=== PATIENT | female | born 1950 | race Caucasian/White ===

== ENCOUNTER 2018-06-03 14:33 | Emergency (ER) | payer MEDICARE, SELFPAY ==
[2018-06-03] VITALS (8 sets, daily range): BP systolic 156–192; BP diastolic 80–93; PULSE 58–72; RESP 12–18; TEMP 37.1; O2SAT 100; BMI 29.0
--- NOTE | 2018-06-03 16:06 | ED.NAVMDI ---
HPI - Nausea/Vomiting/Diarrhea <Izzy Albarado, SET OFF PRESS OPERATOR-BC - Last Filed: 06/03/18 23:05> General Chief complaint: Nausea/Vomiting/Diarrhea Stated complaint: heat exhaustion, throwing up, headache, diarrhea Time Seen by Provider: 06/03/18 16:12 Source: patient and family Mode of arrival: ambulatory Limitations: no limitations History of Present Illness HPI Narrative: Patient presents with chief complaint of ?feeling sick since Thursday due to the heat.? She presents from [facility] urgent care. She states she had sudden onset of fatigue nausea vomiting chills and fevers feeling. She states she has not been able to keep anything down for days. She complains of diarrhea on Thursday. However she has not had any diarrhea since Thursday. She denies any chest pain, shortness of breath, cough, sore throat, ear pain or abdominal pain. She states that this happened several years ago when she was admitted for heat exhaustion. She denies urinary symptoms and denies dysuria urgency or frequency. [facility] urgent care gave her 25 IM Phenergan. I called [facility] verify this as the patient was not aware of what she received. She also complains of headache in the front and back of her head. Related Data Home Medications Medication Instructions Recorded Confirmed gabapentin [Neurontin] 3 cap PO HS #0 09/05/16 06/03/18 chlorhexidine gluconate [Hibiclens] 1 applic TOPICAL SEEINSTR 06/03/18 06/03/18 diclofenac sodium 1 tab PO BID 06/03/18 06/03/18 gabapentin 300 mg PO BID 06/03/18 06/03/18 mupirocin 1 applic TOPICAL SEEINSTR 06/03/18 06/03/18 paroxetine HCl 20 mg PO DAILY 06/03/18 06/03/18 trazodone 50 mg PO DAILY 06/03/18 06/03/18 Previous Rx's Medication Instructions Recorded nitrofurantoin monohyd/m-cryst 100 mg PO BID #14 cap 06/03/18 [Macrobid] ondansetron 4 mg PO Q6-8H PRN 5 Days tab 06/03/18 Allergies Allergy/AdvReac Type Severity Reaction Status Date / Time Sulfa (Sulfonamide Allergy Severe CHILDHOOD Verified 06/03/18 14:56 Antibiotics) RX- [SULFA (SULFONAMIDE swelling ANTIBIOTICS)] Review of Systems <Izzy AlbaradoURVASHI- - Last Filed: 06/03/18 23:05> Review of Systems GENERAL: See HPI HEENT: Denies sinus pain, ear pain, sore throat, difficulty swallowing, dizziness. RESPIRATORY: Denies dyspnea, cough, wheezing, hemoptysis, sputum. CARDIOVASCULAR: Denies chest pain, palpitations, orthopnea, edema, GASTROINTESTINAL: See HPI : See HPI MUSCULOSKELETAL: See HPI SKIN: Denies rash, skin lesions, or other NEUROLOGIC: Denies weakness, headache, numbness, change in speech, confusion, seizures, incoordination. PSYCHIATRIC: No concerning psychosocial issues. 12 point review of systems is negative except for those stated above Exam <Izzy AlbaradoLILLIEP- - Last Filed: 06/03/18 23:05> Narrative Exam Narrative: GENERAL: Fatigued-appearing elderly female lying on stretcher. HEAD: Atraumatic. Normocephalic. No temporal or scalp tenderness. EYES: Pupils equal round and reactive. Extraocular motions intact. No scleral icterus. No injection or drainage. ENT: Nose without bleeding, purulent drainage or septal hematoma. Throat without erythema, tonsillar hypertrophy or exudate. Uvula midline. Airway patent. NECK: Trachea midline. No JVD or lymphadenopathy. Supple, nontender, no meningeal signs. CARDIOVASCULAR: Regular rate and rhythm., RESPIRATORY: Clear to auscultation. Breath sounds equal bilaterally. No wheezes, rales, or rhonchi. GASTROINTESTINAL: Abdomen soft, non-tender, nondistended. No hepato-splenomegaly, or palpable masses. No guarding. Nonrigid abdomen. Active bowel sounds all 4 quadrants. No pulsatile mass palpated. EXTREMITIES: No clubbing, cyanosis, or edema. No joint tenderness, effusion, or edema noted. BACK: Nontender without deformity or crepitance. No flank tenderness. No CVA tenderness bilaterally. NEURO: AOx3. SKIN: No rash or erythema. Initial Vital Signs Initial Vital Signs: Vital Signs Temperature 98.8 F 06/03/18 14:50 Pulse Rate 68 06/03/18 14:50 Respiratory Rate 18 06/03/18 14:50 Blood Pressure 156/87 H 06/03/18 14:50 Pulse Oximetry 100 06/03/18 14:50 <Vel Rahman DO - Last Filed: 06/04/18 07:25> Initial Vital Signs Initial Vital Signs: Vital Signs Temperature 98.8 F 06/03/18 14:50 Pulse Rate 68 06/03/18 14:50 Respiratory Rate 18 06/03/18 14:50 Blood Pressure 156/87 H 06/03/18 14:50 Pulse Oximetry 100 06/03/18 14:50 Course <LILLIE CartyP-BC - Last Filed: 06/03/18 23:05> Additional Information: The patient presented to the emergency department from an urgent care center. She received an EKG, IV and IV fluid. She received 2 L of normal saline, as well as Zofran for her nausea. She also received Toradol for pain. She was treated for her urinary tract infection with her 1st dose of Macrobid in the emergency department. She felt much better after 2 L of saline. I recheck her electrolytes, her potassium was noted to be 3.2 so I gave her 40 mEq KCL p.o. I checked on her several times throughout her stay. Orders Ordered: Discontinued Medications Sodium Chloride (Normal Saline 0.9%) 1,000 mls @ 1,000 mls/hr IV BOLUS ONE Stop: 06/03/18 15:58 Last Infusion: 06/03/18 18:18 Dose: 0 mls/hr Admin: 06/03/18 16:37 Dose: 1,000 mls/hr Sodium Chloride (Normal Saline 0.9%) 1,000 mls @ 1,000 mls/hr IV BOLUS ONE Stop: 06/03/18 17:21 Last Infusion: 06/03/18 19:37 Dose: 0 mls/hr Admin: 06/03/18 18:28 Dose: 1,000 mls/hr Sodium Chloride (Normal Saline 0.9%) 500 mls @ 1,000 mls/hr IV BOLUS ONE Stop: 06/03/18 17:33 Last Admin: 06/03/18 17:22 Dose: Ketorolac Tromethamine (Toradol) 15 mg IV NOW ONE Stop: 06/03/18 18:09 Last Admin: 06/03/18 18:28 Dose: 15 mg Nitrofurantoin Macrocrystals (Macrobid 100 Mg Capsule) 100 mg PO NOW ONE Stop: 06/03/18 19:26 Last Admin: 06/03/18 19:41 Dose: 100 mg Ondansetron HCl (Zofran) 4 mg IV NOW ONE Stop: 06/03/18 16:23 Last Admin: 06/03/18 16:38 Dose: 4 mg Ondansetron HCl (Zofran) 4 mg IV NOW ONE Stop: 06/03/18 17:41 Last Admin: 06/03/18 18:27 Dose: Not Given Potassium Chloride (Klor-Con M20) 40 meq PO NOW ONE Stop: 06/03/18 20:08 Last Admin: 06/03/18 20:26 Dose: 40 meq Vital Signs - 8 hr 06/03/18 16:50 06/03/18 17:30 06/03/18 18:06 Pulse Rate 58 L 65 61 Respiratory Rate 15 14 17 Blood Pressure [Left Arm] 192/80 H 181/90 H 182/85 H Pulse Oximetry 100 100 100 06/03/18 18:24 06/03/18 19:30 06/03/18 20:00 Pulse Rate 72 65 67 Respiratory Rate 12 16 15 Blood Pressure [Left Arm] 182/85 H 181/93 H 181/93 H Pulse Oximetry 100 100 100 06/03/18 20:32 Pulse Rate 62 Respiratory Rate 13 Blood Pressure [Left Arm] 174/90 H Pulse Oximetry 100 <Vel Rahman DO - Last Filed: 06/04/18 07:25> Orders Ordered: Discontinued Medications Sodium Chloride (Normal Saline 0.9%) 1,000 mls @ 1,000 mls/hr IV BOLUS ONE Stop: 06/03/18 15:58 Last Infusion: 06/03/18 18:18 Dose: 0 mls/hr Admin: 06/03/18 16:37 Dose: 1,000 mls/hr Sodium Chloride (Normal Saline 0.9%) 1,000 mls @ 1,000 mls/hr IV BOLUS ONE Stop: 06/03/18 17:21 Last Infusion: 06/03/18 19:37 Dose: 0 mls/hr Admin: 06/03/18 18:28 Dose: 1,000 mls/hr Sodium Chloride (Normal Saline 0.9%) 500 mls @ 1,000 mls/hr IV BOLUS ONE Stop: 06/03/18 17:33 Last Admin: 06/03/18 17:22 Dose: Ketorolac Tromethamine (Toradol) 15 mg IV NOW ONE Stop: 06/03/18 18:09 Last Admin: 06/03/18 18:28 Dose: 15 mg Nitrofurantoin Macrocrystals (Macrobid 100 Mg Capsule) 100 mg PO NOW ONE Stop: 06/03/18 19:26 Last Admin: 06/03/18 19:41 Dose: 100 mg Ondansetron HCl (Zofran) 4 mg IV NOW ONE Stop: 06/03/18 16:23 Last Admin: 06/03/18 16:38 Dose: 4 mg Ondansetron HCl (Zofran) 4 mg IV NOW ONE Stop: 06/03/18 17:41 Last Admin: 06/03/18 18:27 Dose: Not Given Potassium Chloride (Klor-Con M20) 40 meq PO NOW ONE Stop: 06/03/18 20:08 Last Admin: 06/03/18 20:26 Dose: 40 meq Vital Signs - 8 hr 06/03/18 16:50 06/03/18 17:30 06/03/18 18:06 Pulse Rate 58 L 65 61 Respiratory Rate 15 14 17 Blood Pressure [Left Arm] 192/80 H 181/90 H 182/85 H Pulse Oximetry 100 100 100 06/03/18 18:24 06/03/18 19:30 06/03/18 20:00 Pulse Rate 72 65 67 Respiratory Rate 12 16 15 Blood Pressure [Left Arm] 182/85 H 181/93 H 181/93 H Pulse Oximetry 100 100 100 06/03/18 20:32 Pulse Rate 62 Respiratory Rate 13 Blood Pressure [Left Arm] 174/90 H Pulse Oximetry 100 MDM - Nausea/Vomiting/Diarrhea <URVASHI Carty- - Last Filed: 06/03/18 23:05> Lab Data Attestation: I reviewed the patient's lab results. Result diagrams: 06/03/18 16:23 06/03/18 19:28 Lab Results 06/03/18 06/03/18 06/03/18 Range/Units 13:35 16:23 16:23 WBC 10.6 (4.5-11.0) X10^3/uL RBC 4.77 (4.0-5.2) X10^6/uL Hgb 15.8 (12.0-16.0) g/dL Hct 45.8 (36-46) % MCV 95.8 (80-100) fL MCH 33.0 (26-34) PG MCHC 34.5 (30-36) % RDW 13.7 (11.6-14.8) % Plt Count 230 (150-400) X10^3/uL Neut % (Auto) 81.0 H (50-75) % Lymph % (Auto) 12.1 L (25-40) % [place] % (Auto) 6.6 (3-14) % Eos % (Auto) 0.0 L (2-4) % Baso % (Auto) 0.3 (0-2) % Neut # (Auto) 8600 H (4033-9160) /uL Sodium 134 L (137-145) mmol/L Potassium 3.4 (3.4-5.1) mmol/L Chloride 95 L (98-107) mmol/L Carbon Dioxide 27 (22-32) mmol/L BUN 22 H (7-17) mg/dL Creatinine 0.60 (0.52-1.04) mg/dL Estimated GFR > 60.0 (>60) mL/min BUN/Creatinine Ratio 36.7 H (6-22) Glucose 107 (80-110) mg/dL Calcium 10.3 H (8.4-10.2) mg/dL Total Bilirubin 1.3 (0.2-1.3) mg/dL AST 53 H (14-36) IU/L ALT 32 (9-52) IU/L Alkaline Phosphatase 72 (38-126) U/L Troponin I 0.018 (0.01-0.034) ng/mL Total Protein 8.2 (6.3-8.2) g/dL Albumin 5.2 H (3.5-5.0) g/dL Globulin 3.0 (1.7-4.1) g/dL Albumin/Globulin Ratio 1.7 (1.0-2.8) Lipase 52 (23-300) U/L Urine RBC 1-5/hpf (0-5/HPF) Urine WBC 5-10/hpf H (0-5/HPF) Ur Squamous Epith Cells 1-5 /hpf Amorphous Sediment 1+ Urine Bacteria Moderate (10-30) H (None) Urine Mucus 1+ H (Negative) Ur Culture Indicated? Specimen cultured Micro UA Comment Not Reportable 06/03/18 Range/Units 19:28 WBC (4.5-11.0) X10^3/uL RBC (4.0-5.2) X10^6/uL Hgb (12.0-16.0) g/dL Hct (36-46) % MCV (80-100) fL MCH (26-34) PG MCHC (30-36) % RDW (11.6-14.8) % Plt Count (150-400) X10^3/uL Neut % (Auto) (50-75) % Lymph % (Auto) (25-40) % [place] % (Auto) (3-14) % Eos % (Auto) (2-4) % Baso % (Auto) (0-2) % Neut # (Auto) (9418-1214) /uL Sodium 134 L (137-145) mmol/L Potassium 3.2 L (3.4-5.1) mmol/L Chloride 98 (98-107) mmol/L Carbon Dioxide 25 (22-32) mmol/L BUN 19 H (7-17) mg/dL Creatinine 0.60 (0.52-1.04) mg/dL Estimated GFR > 60.0 (>60) mL/min BUN/Creatinine Ratio 31.7 H (6-22) Glucose 126 H (80-110) mg/dL Calcium 9.2 (8.4-10.2) mg/dL Total Bilirubin 1.1 (0.2-1.3) mg/dL AST 47 H (14-36) IU/L ALT 38 (9-52) IU/L Alkaline Phosphatase 61 (38-126) U/L Troponin I (0.01-0.034) ng/mL Total Protein 7.4 (6.3-8.2) g/dL Albumin 4.6 (3.5-5.0) g/dL Globulin 2.8 (1.7-4.1) g/dL Albumin/Globulin Ratio 1.6 (1.0-2.8) Lipase (23-300) U/L Urine RBC (0-5/HPF) Urine WBC (0-5/HPF) Ur Squamous Epith Cells Amorphous Sediment Urine Bacteria (None) Urine Mucus (Negative) Ur Culture Indicated? Micro UA Comment Imaging Data CT scan - head: Radiologist's impression: [address] [address] [address] Scan Report Signed Patient: Nikolas Castillo MR#: [id number] : 1950 Acct:[id number] Age/Sex: 68 / F Date of Service: 06/03/18 Loc: ED Accession Number: [id number] Procedure: CT head/brain wo con Ordering Provider: Izzy Albarado- PROCEDURE: CT HEAD/BRAIN WO CON INDICATIONS: severe headache, weakness TECHNIQUE: Noncontrast 4.5 mm thick angled axial sections acquired from the foramen magnum to the vertex, with coronal and sagittal reformats. For radiation dose reduction, the following was used: automated exposure control, adjustment of mA and/or kV according to patient size. COMPARISON: None. FINDINGS: Image quality: Excellent. CSF spaces: Basal cisterns are patent. No extra-axial fluid collections. The ventricles are symmetric in size and shape. Brain: No intracranial bleeds or masses. There is cerebral volume loss for age, with resultant ventricular and sulcal prominence. There are periventricular and deep white matter chronic small vessel ischemic changes. There is intracranial internal carotid artery atherosclerosis. Skull and face: Calvarium and visualized facial bones appear intact, without suspicious lesions. Sinuses: Visualized sinuses and mastoids are clear. IMPRESSION: 1. No acute intracranial process. 2. Mild atrophy and chronic microvascular ischemic changes. Dictated by: Anne Yoder M.D. on 06/03/2018 at 18:15 Approved by: Anne Yoder M.D. on 06/03/2018 at 18:17 [facility] Narrative Medical decision making narrative: The patient presented to the emergency department with chief complaint of weakness, nausea vomiting and diarrhea. She was treated with Zofran, IVF and Toradol for headache. She underwent a CT scan given her headache and weakness. The patient improved greatly after receiving IV after felt as though she was ready to go home. The patient underwent a thorough examination the emergency department. The patient did have moderate bacteria on her UA, however did not have CVA tenderness or urinary symptoms. I placed her on Macrobid and a urine culture is being processed. Upon discharge the patient stated she felt much improved, denies dizziness or headache. She has passed a p.o. trial and felt as though she is ready to go. She had no questions or concerns upon discharge. <Vel Rahman, DO - Last Filed: 06/04/18 07:25> Lab Data Lab Results 06/03/18 06/03/18 06/03/18 Range/Units 13:35 16:23 16:23 WBC 10.6 (4.5-11.0) X10^3/uL RBC 4.77 (4.0-5.2) X10^6/uL Hgb 15.8 (12.0-16.0) g/dL Hct 45.8 (36-46) % MCV 95.8 (80-100) fL MCH 33.0 (26-34) PG MCHC 34.5 (30-36) % RDW 13.7 (11.6-14.8) % Plt Count 230 (150-400) X10^3/uL Neut % (Auto) 81.0 H (50-75) % Lymph % (Auto) 12.1 L (25-40) % [place] % (Auto) 6.6 (3-14) % Eos % (Auto) 0.0 L (2-4) % Baso % (Auto) 0.3 (0-2) % Neut # (Auto) 8600 H (3050-6333) /uL Sodium 134 L (137-145) mmol/L Potassium 3.4 (3.4-5.1) mmol/L Chloride 95 L (98-107) mmol/L Carbon Dioxide 27 (22-32) mmol/L BUN 22 H (7-17) mg/dL Creatinine 0.60 (0.52-1.04) mg/dL Estimated GFR > 60.0 (>60) mL/min BUN/Creatinine Ratio 36.7 H (6-22) Glucose 107 (80-110) mg/dL Calcium 10.3 H (8.4-10.2) mg/dL Total Bilirubin 1.3 (0.2-1.3) mg/dL AST 53 H (14-36) IU/L ALT 32 (9-52) IU/L Alkaline Phosphatase 72 (38-126) U/L Troponin I 0.018 (0.01-0.034) ng/mL Total Protein 8.2 (6.3-8.2) g/dL Albumin 5.2 H (3.5-5.0) g/dL Globulin 3.0 (1.7-4.1) g/dL Albumin/Globulin Ratio 1.7 (1.0-2.8) Lipase 52 (23-300) U/L Urine RBC 1-5/hpf (0-5/HPF) Urine WBC 5-10/hpf H (0-5/HPF) Ur Squamous Epith Cells 1-5 /hpf Amorphous Sediment 1+ Urine Bacteria Moderate (10-30) H (None) Urine Mucus 1+ H (Negative) Ur Culture Indicated? Specimen cultured Micro UA Comment Not Reportable 06/03/18 Range/Units 19:28 WBC (4.5-11.0) X10^3/uL RBC (4.0-5.2) X10^6/uL Hgb (12.0-16.0) g/dL Hct (36-46) % MCV (80-100) fL MCH (26-34) PG MCHC (30-36) % RDW (11.6-14.8) % Plt Count (150-400) X10^3/uL Neut % (Auto) (50-75) % Lymph % (Auto) (25-40) % [place] % (Auto) (3-14) % Eos % (Auto) (2-4) % Baso % (Auto) (0-2) % Neut # (Auto) (8097-7588) /uL Sodium 134 L (137-145) mmol/L Potassium 3.2 L (3.4-5.1) mmol/L Chloride 98 (98-107) mmol/L Carbon Dioxide 25 (22-32) mmol/L BUN 19 H (7-17) mg/dL Creatinine 0.60 (0.52-1.04) mg/dL Estimated GFR > 60.0 (>60) mL/min BUN/Creatinine Ratio 31.7 H (6-22) Glucose 126 H (80-110) mg/dL Calcium 9.2 (8.4-10.2) mg/dL Total Bilirubin 1.1 (0.2-1.3) mg/dL AST 47 H (14-36) IU/L ALT 38 (9-52) IU/L Alkaline Phosphatase 61 (38-126) U/L Troponin I (0.01-0.034) ng/mL Total Protein 7.4 (6.3-8.2) g/dL Albumin 4.6 (3.5-5.0) g/dL Globulin 2.8 (1.7-4.1) g/dL Albumin/Globulin Ratio 1.6 (1.0-2.8) Lipase (23-300) U/L Urine RBC (0-5/HPF) Urine WBC (0-5/HPF) Ur Squamous Epith Cells Amorphous Sediment Urine Bacteria (None) Urine Mucus (Negative) Ur Culture Indicated? Micro UA Comment Discharge Plan Departure Patient Disposition: Home, Self-Care Clinical Impression: Nausea & vomiting, Weakness, UTI (urinary tract infection) Discharge Date/Time: 06/03/18 21:00 Interventions: ED Discharge Assessment Last Done: 06/03/18 21:00 Instructions: DI for Dehydration -- Adult, DI for Urinary Tract Infection (UTI), DI for Nausea -- Adult Activity Restrictions/Additional Instructions: You appear to be feeling much better after the treatment you received in the emergency department. Your vital signs are stable. I am starting you on an antibiotic called Emilied for urinary tract infection. Your urine is being sent out for culture to make sure that this is a good choice. I would like you to follow up with her primary care provider if he feel worse or do not feel any better. Monitor for fevers or flank pain. I suggest following up with you PCP. Prescriptions: New ondansetron 4 mg tablet,disintegrating 4 mg PO Q6-8H PRN (Reason: nausea and vomiting) 5 Days RF: 0 nitrofurantoin monohyd/m-cryst [Macrobid] 100 mg capsule 100 mg PO BID Qty: 14 RF: 0 No Action gabapentin [Neurontin] 300 MG capsule 3 cap PO HS Qty: 0 RF: 0 trazodone 50 mg tablet 50 mg PO DAILY RF: 0 paroxetine HCl 20 mg tablet 20 mg PO DAILY RF: 0 gabapentin 300 mg capsule 300 mg PO BID RF: 0 diclofenac sodium 75 mg tablet,delayed release (DR/EC) 1 tab PO BID RF: 0 mupirocin 2 % ointment 1 applic Topical SEEINSTR RF: 0 chlorhexidine gluconate [Hibiclens] 4 % liquid 1 applic Topical SEEINSTR RF: 0 <Vel Rahman DO - Last Filed: 06/04/18 07:25> Cosign ED Attending Cosrainerature Attestation: I was available for consultation during this patient's emergency department encounter
[2018-06-03 16:11] LABS: Amorphous Sediment Urine 1+; Bacteria Urine Moderate (10-30); Culture Indicated Urine Specimen Cultured; Mucus Urine 1+ (Negative); RBC Urine 1-5/HPF (0-5/HPF); Squamous Epithelial Cell Urine 1-5 /HPF; WBC Urine 5-10/HPF (0-5/HPF)
[2018-06-03 16:32] LABS: Add Manual Diff / Slide Review NO; Basophils Percent Auto 0.3 % (0-2); Hematocrit 45.8 % (36-46); Hemoglobin 15.8 g/dL (12.0-16.0); Lymphocytes Percent Auto 12.1 % (25-40); Mean Corpuscular HGB Conc 34.5 % (30-36); Mean Corpuscular Volume 95.8 fL (80-100); Monocytes Percent Auto 6.6 % (3-14); Neutrophils Absolute Auto 8600 /uL (3000-5900); Platelet Count 230 X10^3/uL (150-400); Red Blood Cell Count 4.77 X10^6/uL (4.0-5.2); Red Cell Distribution Width 13.7 % (11.6-14.8); White Blood Cell Count 10.6 X10^3/uL (4.5-11.0)
[2018-06-03] MEDS: SODIUM CHLORIDE 0.9% 1,000 ML 1000 ML IV ×2 (16:37→18:28)
[2018-06-03] MEDS: ONDANSETRON 4 MG/2 ML INJ IV (16:38)
[2018-06-03 16:48] LABS: Alanine Aminotransferase 32 IU/L (9-52); Albumin 5.2 g/dL (3.5-5.0); Albumin Globulin Ratio 1.7 (1.0-2.8); Alkaline Phosphatase 72 U/L (38-126); Aspartate Aminotransferase 53 IU/L (14-36); BUN Creatinine Ratio 36.7 (6-22); Bilirubin Total 1.3 mg/dL (0.2-1.3); Blood Urea Nitrogen 22 mg/dL (7-17); Calcium 10.3 mg/dL (8.4-10.2); Carbon Dioxide 27 mmol/L (22-32); Chloride 95 mmol/L (98-107); Estimated Glomerular Filt Rate > 60.0 mL/min (>60); Glucose 107 mg/dL (80-110); HEMOLYSIS < 15 (0-50); Lipase 52 U/L (23-300); Potassium 3.4 mmol/L (3.4-5.1); Sodium 134 mmol/L (137-145); Total Protein 8.2 g/dL (6.3-8.2)
[2018-06-03 16:59] LABS: Troponin I 0.018 ng/mL (0.01-0.034)
--- NOTE | 2018-06-03 17:17 | DI.CT.S_ITS ---
PROCEDURE: CT HEAD/BRAIN WO CON INDICATIONS: severe headache, weakness TECHNIQUE: Noncontrast 4.5 mm thick angled axial sections acquired from the foramen magnum to the vertex, with coronal and sagittal reformats. For radiation dose reduction, the following was used: automated exposure control, adjustment of mA and/or kV according to patient size. COMPARISON: None. FINDINGS: Image quality: Excellent. CSF spaces: Basal cisterns are patent. No extra-axial fluid collections. The ventricles are symmetric in size and shape. Brain: No intracranial bleeds or masses. There is cerebral volume loss for age, with resultant ventricular and sulcal prominence. There are periventricular and deep white matter chronic small vessel ischemic changes. There is intracranial internal carotid artery atherosclerosis. Skull and face: Calvarium and visualized facial bones appear intact, without suspicious lesions. Sinuses: Visualized sinuses and mastoids are clear. IMPRESSION: 1. No acute intracranial process. 2. Mild atrophy and chronic microvascular ischemic changes. Dictated by: Anne Yoder M.D. on 06/03/2018 at 18:15 Approved by: Anne Yoder M.D. on 06/03/2018 at 18:17
[2018-06-03] MEDS: KETOROLAC 60 MG/2 ML VIAL 15 MG IV (18:28)
[2018-06-03] MEDS: NITROFURANTOIN ER 100 MG CAPSULE PO (19:41)
--- NOTE | 2018-06-03 19:44 | ED_ITS ---
HPI - Nausea/Vomiting/Diarrhea <Izzy Albarado, GAS PLANT DISPATCHER-BC - Last Filed: 06/03/18 23:05> General Chief complaint: Nausea/Vomiting/Diarrhea Stated complaint: heat exhaustion, throwing up, headache, diarrhea Time Seen by Provider: 06/03/18 16:12 Source: patient and family Mode of arrival: ambulatory Limitations: no limitations History of Present Illness HPI Narrative: Patient presents with chief complaint of ?feeling sick since Thursday due to the heat.? She presents from [facility] urgent care. She states she had sudden onset of fatigue nausea vomiting chills and fevers feeling. She states she has not been able to keep anything down for days. She complains of diarrhea on Thursday. However she has not had any diarrhea since Thursday. She denies any chest pain, shortness of breath, cough, sore throat, ear pain or abdominal pain. She states that this happened several years ago when she was admitted for heat exhaustion. She denies urinary symptoms and denies dysuria urgency or frequency. [facility] urgent care gave her 25 IM Phenergan. I called [facility] verify this as the patient was not aware of what she received. She also complains of headache in the front and back of her head. Related Data Home Medications Medication Instructions Recorded Confirmed gabapentin [Neurontin] 3 cap PO HS #0 09/05/16 06/03/18 chlorhexidine gluconate [Hibiclens] 1 applic TOPICAL SEEINSTR 06/03/18 06/03/18 diclofenac sodium 1 tab PO BID 06/03/18 06/03/18 gabapentin 300 mg PO BID 06/03/18 06/03/18 mupirocin 1 applic TOPICAL SEEINSTR 06/03/18 06/03/18 paroxetine HCl 20 mg PO DAILY 06/03/18 06/03/18 trazodone 50 mg PO DAILY 06/03/18 06/03/18 Previous Rx's Medication Instructions Recorded nitrofurantoin monohyd/m-cryst 100 mg PO BID #14 cap 06/03/18 [Macrobid] ondansetron 4 mg PO Q6-8H PRN 5 Days tab 06/03/18 Allergies Allergy/AdvReac Type Severity Reaction Status Date / Time Sulfa (Sulfonamide Allergy Severe CHILDHOOD Verified 06/03/18 14:56 Antibiotics) RX- [SULFA (SULFONAMIDE swelling ANTIBIOTICS)] Review of Systems <Izzy AlbaradoURVASHI- - Last Filed: 06/03/18 23:05> Review of Systems GENERAL: See HPI HEENT: Denies sinus pain, ear pain, sore throat, difficulty swallowing, dizziness. RESPIRATORY: Denies dyspnea, cough, wheezing, hemoptysis, sputum. CARDIOVASCULAR: Denies chest pain, palpitations, orthopnea, edema, GASTROINTESTINAL: See HPI : See HPI MUSCULOSKELETAL: See HPI SKIN: Denies rash, skin lesions, or other NEUROLOGIC: Denies weakness, headache, numbness, change in speech, confusion, seizures, incoordination. PSYCHIATRIC: No concerning psychosocial issues. 12 point review of systems is negative except for those stated above Exam <Izzy AlbaradoLILLIEP- - Last Filed: 06/03/18 23:05> Narrative Exam Narrative: GENERAL: Fatigued-appearing elderly female lying on stretcher. HEAD: Atraumatic. Normocephalic. No temporal or scalp tenderness. EYES: Pupils equal round and reactive. Extraocular motions intact. No scleral icterus. No injection or drainage. ENT: Nose without bleeding, purulent drainage or septal hematoma. Throat without erythema, tonsillar hypertrophy or exudate. Uvula midline. Airway patent. NECK: Trachea midline. No JVD or lymphadenopathy. Supple, nontender, no meningeal signs. CARDIOVASCULAR: Regular rate and rhythm., RESPIRATORY: Clear to auscultation. Breath sounds equal bilaterally. No wheezes , rales, or rhonchi. GASTROINTESTINAL: Abdomen soft, non-tender, nondistended. No hepato-splenomegaly , or palpable masses. No guarding. Nonrigid abdomen. Active bowel sounds all 4 quadrants. No pulsatile mass palpated. EXTREMITIES: No clubbing, cyanosis, or edema. No joint tenderness, effusion, or edema noted. BACK: Nontender without deformity or crepitance. No flank tenderness. No CVA tenderness bilaterally. NEURO: AOx3. SKIN: No rash or erythema. Initial Vital Signs Initial Vital Signs: Vital Signs Temperature 98.8 F 06/03/18 14:50 Pulse Rate 68 06/03/18 14:50 Respiratory Rate 18 06/03/18 14:50 Blood Pressure 156/87 H 06/03/18 14:50 Pulse Oximetry 100 06/03/18 14:50 <Vel Rahman DO - Last Filed: 06/04/18 07:25> Initial Vital Signs Initial Vital Signs: Vital Signs Temperature 98.8 F 06/03/18 14:50 Pulse Rate 68 06/03/18 14:50 Respiratory Rate 18 06/03/18 14:50 Blood Pressure 156/87 H 06/03/18 14:50 Pulse Oximetry 100 06/03/18 14:50 Course <LILLIE CartyP-BC - Last Filed: 06/03/18 23:05> Additional Information: The patient presented to the emergency department from an urgent care center. She received an EKG, IV and IV fluid. She received 2 L of normal saline, as well as Zofran for her nausea. She also received Toradol for pain. She was treated for her urinary tract infection with her 1st dose of Macrobid in the emergency department. She felt much better after 2 L of saline. I recheck her electrolytes, her potassium was noted to be 3.2 so I gave her 40 mEq KCL p.o. I checked on her several times throughout her stay. Orders Ordered: Discontinued Medications Sodium Chloride (Normal Saline 0.9%) 1,000 mls @ 1,000 mls/hr IV BOLUS ONE Stop: 06/03/18 15:58 Last Infusion: 06/03/18 18:18 Dose: 0 mls/hr Admin: 06/03/18 16:37 Dose: 1,000 mls/hr Sodium Chloride (Normal Saline 0.9%) 1,000 mls @ 1,000 mls/hr IV BOLUS ONE Stop: 06/03/18 17:21 Last Infusion: 06/03/18 19:37 Dose: 0 mls/hr Admin: 06/03/18 18:28 Dose: 1,000 mls/hr Sodium Chloride (Normal Saline 0.9%) 500 mls @ 1,000 mls/hr IV BOLUS ONE Stop: 06/03/18 17:33 Last Admin: 06/03/18 17:22 Dose: Ketorolac Tromethamine (Toradol) 15 mg IV NOW ONE Stop: 06/03/18 18:09 Last Admin: 06/03/18 18:28 Dose: 15 mg Nitrofurantoin Macrocrystals (Macrobid 100 Mg Capsule) 100 mg PO NOW ONE Stop: 06/03/18 19:26 Last Admin: 06/03/18 19:41 Dose: 100 mg Ondansetron HCl (Zofran) 4 mg IV NOW ONE Stop: 06/03/18 16:23 Last Admin: 06/03/18 16:38 Dose: 4 mg Ondansetron HCl (Zofran) 4 mg IV NOW ONE Stop: 06/03/18 17:41 Last Admin: 06/03/18 18:27 Dose: Not Given Potassium Chloride (Klor-Con M20) 40 meq PO NOW ONE Stop: 06/03/18 20:08 Last Admin: 06/03/18 20:26 Dose: 40 meq Vital Signs - 8 hr 06/03/18 16:50 06/03/18 17:30 06/03/18 18:06 Pulse Rate 58 L 65 61 Respiratory Rate 15 14 17 Blood Pressure [Left Arm] 192/80 H 181/90 H 182/85 H Pulse Oximetry 100 100 100 06/03/18 18:24 06/03/18 19:30 06/03/18 20:00 Pulse Rate 72 65 67 Respiratory Rate 12 16 15 Blood Pressure [Left Arm] 182/85 H 181/93 H 181/93 H Pulse Oximetry 100 100 100 06/03/18 20:32 Pulse Rate 62 Respiratory Rate 13 Blood Pressure [Left Arm] 174/90 H Pulse Oximetry 100 <Vel Rahman DO - Last Filed: 06/04/18 07:25> Orders Ordered: Discontinued Medications Sodium Chloride (Normal Saline 0.9%) 1,000 mls @ 1,000 mls/hr IV BOLUS ONE Stop: 06/03/18 15:58 Last Infusion: 06/03/18 18:18 Dose: 0 mls/hr Admin: 06/03/18 16:37 Dose: 1,000 mls/hr Sodium Chloride (Normal Saline 0.9%) 1,000 mls @ 1,000 mls/hr IV BOLUS ONE Stop: 06/03/18 17:21 Last Infusion: 06/03/18 19:37 Dose: 0 mls/hr Admin: 06/03/18 18:28 Dose: 1,000 mls/hr Sodium Chloride (Normal Saline 0.9%) 500 mls @ 1,000 mls/hr IV BOLUS ONE Stop: 06/03/18 17:33 Last Admin: 06/03/18 17:22 Dose: Ketorolac Tromethamine (Toradol) 15 mg IV NOW ONE Stop: 06/03/18 18:09 Last Admin: 06/03/18 18:28 Dose: 15 mg Nitrofurantoin Macrocrystals (Macrobid 100 Mg Capsule) 100 mg PO NOW ONE Stop: 06/03/18 19:26 Last Admin: 06/03/18 19:41 Dose: 100 mg Ondansetron HCl (Zofran) 4 mg IV NOW ONE Stop: 06/03/18 16:23 Last Admin: 06/03/18 16:38 Dose: 4 mg Ondansetron HCl (Zofran) 4 mg IV NOW ONE Stop: 06/03/18 17:41 Last Admin: 06/03/18 18:27 Dose: Not Given Potassium Chloride (Klor-Con M20) 40 meq PO NOW ONE Stop: 06/03/18 20:08 Last Admin: 06/03/18 20:26 Dose: 40 meq Vital Signs - 8 hr 06/03/18 16:50 06/03/18 17:30 06/03/18 18:06 Pulse Rate 58 L 65 61 Respiratory Rate 15 14 17 Blood Pressure [Left Arm] 192/80 H 181/90 H 182/85 H Pulse Oximetry 100 100 100 06/03/18 18:24 06/03/18 19:30 06/03/18 20:00 Pulse Rate 72 65 67 Respiratory Rate 12 16 15 Blood Pressure [Left Arm] 182/85 H 181/93 H 181/93 H Pulse Oximetry 100 100 100 06/03/18 20:32 Pulse Rate 62 Respiratory Rate 13 Blood Pressure [Left Arm] 174/90 H Pulse Oximetry 100 MDM - Nausea/Vomiting/Diarrhea <URVASHI Carty- - Last Filed: 06/03/18 23:05> Lab Data Attestation: I reviewed the patient's lab results. Result diagrams: 06/03/18 16:23 06/03/18 19:28 Lab Results 06/03/18 06/03/18 06/03/18 Range/Units 13:35 16:23 16:23 WBC 10.6 (4.5-11.0) X10^3/uL RBC 4.77 (4.0-5.2) X10^6/uL Hgb 15.8 (12.0-16.0) g/dL Hct 45.8 (36-46) % MCV 95.8 (80-100) fL MCH 33.0 (26-34) PG MCHC 34.5 (30-36) % RDW 13.7 (11.6-14.8) % Plt Count 230 (150-400) X10^3/uL Neut % (Auto) 81.0 H (50-75) % Lymph % (Auto) 12.1 L (25-40) % [place] % (Auto) 6.6 (3-14) % Eos % (Auto) 0.0 L (2-4) % Baso % (Auto) 0.3 (0-2) % Neut # (Auto) 8600 H (5352-3877) /uL Sodium 134 L (137-145) mmol/L Potassium 3.4 (3.4-5.1) mmol/L Chloride 95 L (98-107) mmol/L Carbon Dioxide 27 (22-32) mmol/L BUN 22 H (7-17) mg/dL Creatinine 0.60 (0.52-1.04) mg/dL Estimated GFR > 60.0 (>60) mL/min BUN/Creatinine Ratio 36.7 H (6-22) Glucose 107 (80-110) mg/dL Calcium 10.3 H (8.4-10.2) mg/dL Total Bilirubin 1.3 (0.2-1.3) mg/dL AST 53 H (14-36) IU/L ALT 32 (9-52) IU/L Alkaline Phosphatase 72 (38-126) U/L Troponin I 0.018 (0.01-0.034) ng/mL Total Protein 8.2 (6.3-8.2) g/dL Albumin 5.2 H (3.5-5.0) g/dL Globulin 3.0 (1.7-4.1) g/dL Albumin/Globulin Ratio 1.7 (1.0-2.8) Lipase 52 (23-300) U/L Urine RBC 1-5/hpf (0-5/HPF) Urine WBC 5-10/hpf H (0-5/HPF) Ur Squamous Epith Cells 1-5 /hpf Amorphous Sediment 1+ Urine Bacteria Moderate (10-30) H (None) Urine Mucus 1+ H (Negative) Ur Culture Indicated? Specimen cultured Micro UA Comment Not Reportable 06/03/18 Range/Units 19:28 WBC (4.5-11.0) X10^3/uL RBC (4.0-5.2) X10^6/uL Hgb (12.0-16.0) g/dL Hct (36-46) % MCV (80-100) fL MCH (26-34) PG MCHC (30-36) % RDW (11.6-14.8) % Plt Count (150-400) X10^3/uL Neut % (Auto) (50-75) % Lymph % (Auto) (25-40) % [place] % (Auto) (3-14) % Eos % (Auto) (2-4) % Baso % (Auto) (0-2) % Neut # (Auto) (4188-8643) /uL Sodium 134 L (137-145) mmol/L Potassium 3.2 L (3.4-5.1) mmol/L Chloride 98 (98-107) mmol/L Carbon Dioxide 25 (22-32) mmol/L BUN 19 H (7-17) mg/dL Creatinine 0.60 (0.52-1.04) mg/dL Estimated GFR > 60.0 (>60) mL/min BUN/Creatinine Ratio 31.7 H (6-22) Glucose 126 H (80-110) mg/dL Calcium 9.2 (8.4-10.2) mg/dL Total Bilirubin 1.1 (0.2-1.3) mg/dL AST 47 H (14-36) IU/L ALT 38 (9-52) IU/L Alkaline Phosphatase 61 (38-126) U/L Troponin I (0.01-0.034) ng/mL Total Protein 7.4 (6.3-8.2) g/dL Albumin 4.6 (3.5-5.0) g/dL Globulin 2.8 (1.7-4.1) g/dL Albumin/Globulin Ratio 1.6 (1.0-2.8) Lipase (23-300) U/L Urine RBC (0-5/HPF) Urine WBC (0-5/HPF) Ur Squamous Epith Cells Amorphous Sediment Urine Bacteria (None) Urine Mucus (Negative) Ur Culture Indicated? Micro UA Comment Imaging Data CT scan - head: Radiologist's impression: [address] [address] [address] Scan Report Signed Patient: Nikolas Castillo MR#: [id number] : 1950 Acct:[id number] Age/Sex: 68 / F Date of Service: 06/03/18 Loc: ED Accession Number: [id number] Procedure: CT head/brain wo con Ordering Provider: Izzy Albarado- PROCEDURE: CT HEAD/BRAIN WO CON INDICATIONS: severe headache, weakness TECHNIQUE: Noncontrast 4.5 mm thick angled axial sections acquired from the foramen magnum to the vertex, with coronal and sagittal reformats. For radiation dose reduction, the following was used: automated exposure control, adjustment of mA and/or kV according to patient size. COMPARISON: None. FINDINGS: Image quality: Excellent. CSF spaces: Basal cisterns are patent. No extra-axial fluid collections. The ventricles are symmetric in size and shape. Brain: No intracranial bleeds or masses. There is cerebral volume loss for age , with resultant ventricular and sulcal prominence. There are periventricular and deep white matter chronic small vessel ischemic changes. There is intracranial internal carotid artery atherosclerosis. Skull and face: Calvarium and visualized facial bones appear intact, without suspicious lesions. Sinuses: Visualized sinuses and mastoids are clear. IMPRESSION: 1. No acute intracranial process. 2. Mild atrophy and chronic microvascular ischemic changes. Dictated by: Anne Yoder M.D. on 06/03/2018 at 18:15 Approved by: Anne Yoder M.D. on 06/03/2018 at 18:17 [facility] Narrative Medical decision making narrative: The patient presented to the emergency department with chief complaint of weakness, nausea vomiting and diarrhea. She was treated with Zofran, IVF and Toradol for headache. She underwent a CT scan given her headache and weakness. The patient improved greatly after receiving IV after felt as though she was ready to go home. The patient underwent a thorough examination the emergency department. The patient did have moderate bacteria on her UA, however did not have CVA tenderness or urinary symptoms. I placed her on Macrobid and a urine culture is being processed. Upon discharge the patient stated she felt much improved, denies dizziness or headache. She has passed a p.o. trial and felt as though she is ready to go. She had no questions or concerns upon discharge. <Vel Rahman, DO - Last Filed: 06/04/18 07:25> Lab Data Lab Results 06/03/18 06/03/18 06/03/18 Range/Units 13:35 16:23 16:23 WBC 10.6 (4.5-11.0) X10^3/uL RBC 4.77 (4.0-5.2) X10^6/uL Hgb 15.8 (12.0-16.0) g/dL Hct 45.8 (36-46) % MCV 95.8 (80-100) fL MCH 33.0 (26-34) PG MCHC 34.5 (30-36) % RDW 13.7 (11.6-14.8) % Plt Count 230 (150-400) X10^3/uL Neut % (Auto) 81.0 H (50-75) % Lymph % (Auto) 12.1 L (25-40) % [place] % (Auto) 6.6 (3-14) % Eos % (Auto) 0.0 L (2-4) % Baso % (Auto) 0.3 (0-2) % Neut # (Auto) 8600 H (2893-5963) /uL Sodium 134 L (137-145) mmol/L Potassium 3.4 (3.4-5.1) mmol/L Chloride 95 L (98-107) mmol/L Carbon Dioxide 27 (22-32) mmol/L BUN 22 H (7-17) mg/dL Creatinine 0.60 (0.52-1.04) mg/dL Estimated GFR > 60.0 (>60) mL/min BUN/Creatinine Ratio 36.7 H (6-22) Glucose 107 (80-110) mg/dL Calcium 10.3 H (8.4-10.2) mg/dL Total Bilirubin 1.3 (0.2-1.3) mg/dL AST 53 H (14-36) IU/L ALT 32 (9-52) IU/L Alkaline Phosphatase 72 (38-126) U/L Troponin I 0.018 (0.01-0.034) ng/mL Total Protein 8.2 (6.3-8.2) g/dL Albumin 5.2 H (3.5-5.0) g/dL Globulin 3.0 (1.7-4.1) g/dL Albumin/Globulin Ratio 1.7 (1.0-2.8) Lipase 52 (23-300) U/L Urine RBC 1-5/hpf (0-5/HPF) Urine WBC 5-10/hpf H (0-5/HPF) Ur Squamous Epith Cells 1-5 /hpf Amorphous Sediment 1+ Urine Bacteria Moderate (10-30) H (None) Urine Mucus 1+ H (Negative) Ur Culture Indicated? Specimen cultured Micro UA Comment Not Reportable 06/03/18 Range/Units 19:28 WBC (4.5-11.0) X10^3/uL RBC (4.0-5.2) X10^6/uL Hgb (12.0-16.0) g/dL Hct (36-46) % MCV (80-100) fL MCH (26-34) PG MCHC (30-36) % RDW (11.6-14.8) % Plt Count (150-400) X10^3/uL Neut % (Auto) (50-75) % Lymph % (Auto) (25-40) % [place] % (Auto) (3-14) % Eos % (Auto) (2-4) % Baso % (Auto) (0-2) % Neut # (Auto) (9657-4629) /uL Sodium 134 L (137-145) mmol/L Potassium 3.2 L (3.4-5.1) mmol/L Chloride 98 (98-107) mmol/L Carbon Dioxide 25 (22-32) mmol/L BUN 19 H (7-17) mg/dL Creatinine 0.60 (0.52-1.04) mg/dL Estimated GFR > 60.0 (>60) mL/min BUN/Creatinine Ratio 31.7 H (6-22) Glucose 126 H (80-110) mg/dL Calcium 9.2 (8.4-10.2) mg/dL Total Bilirubin 1.1 (0.2-1.3) mg/dL AST 47 H (14-36) IU/L ALT 38 (9-52) IU/L Alkaline Phosphatase 61 (38-126) U/L Troponin I (0.01-0.034) ng/mL Total Protein 7.4 (6.3-8.2) g/dL Albumin 4.6 (3.5-5.0) g/dL Globulin 2.8 (1.7-4.1) g/dL Albumin/Globulin Ratio 1.6 (1.0-2.8) Lipase (23-300) U/L Urine RBC (0-5/HPF) Urine WBC (0-5/HPF) Ur Squamous Epith Cells Amorphous Sediment Urine Bacteria (None) Urine Mucus (Negative) Ur Culture Indicated? Micro UA Comment Discharge Plan Departure Patient Disposition: Home, Self-Care Clinical Impression: Nausea & vomiting, Weakness, UTI (urinary tract infection) Discharge Date/Time: 06/03/18 21:00 Interventions: ED Discharge Assessment Last Done: 06/03/18 21:00 Instructions: DI for Dehydration -- Adult, DI for Urinary Tract Infection (UTI) , DI for Nausea -- Adult Activity Restrictions/Additional Instructions: You appear to be feeling much better after the treatment you received in the emergency department. Your vital signs are stable. I am starting you on an antibiotic called Emilied for urinary tract infection. Your urine is being sent out for culture to make sure that this is a good choice. I would like you to follow up with her primary care provider if he feel worse or do not feel any better. Monitor for fevers or flank pain. I suggest following up with you PCP. Prescriptions: New ondansetron 4 mg tablet,disintegrating 4 mg PO Q6-8H PRN (Reason: nausea and vomiting) 5 Days RF: 0 nitrofurantoin monohyd/m-cryst [Macrobid] 100 mg capsule 100 mg PO BID Qty: 14 RF: 0 No Action gabapentin [Neurontin] 300 MG capsule 3 cap PO HS Qty: 0 RF: 0 trazodone 50 mg tablet 50 mg PO DAILY RF: 0 paroxetine HCl 20 mg tablet 20 mg PO DAILY RF: 0 gabapentin 300 mg capsule 300 mg PO BID RF: 0 diclofenac sodium 75 mg tablet,delayed release (DR/EC) 1 tab PO BID RF: 0 mupirocin 2 % ointment 1 applic Topical SEEINSTR RF: 0 chlorhexidine gluconate [Hibiclens] 4 % liquid 1 applic Topical SEEINSTR RF: 0 <Vel Rahman DO - Last Filed: 06/04/18 07:25> Cosign ED Attending Cosrainerature Attestation: I was available for consultation during this patient's emergency department encounter
[2018-06-03 19:53] LABS: Alanine Aminotransferase 38 IU/L (9-52); Albumin 4.6 g/dL (3.5-5.0); Albumin Globulin Ratio 1.6 (1.0-2.8); Alkaline Phosphatase 61 U/L (38-126); Aspartate Aminotransferase 47 IU/L (14-36); BUN Creatinine Ratio 31.7 (6-22); Bilirubin Total 1.1 mg/dL (0.2-1.3); Blood Urea Nitrogen 19 mg/dL (7-17); Calcium 9.2 mg/dL (8.4-10.2); Carbon Dioxide 25 mmol/L (22-32); Chloride 98 mmol/L (98-107); Estimated Glomerular Filt Rate > 60.0 mL/min (>60); Globulin 2.8 g/dL (1.7-4.1); Glucose 126 mg/dL (80-110); HEMOLYSIS < 15 (0-50); Potassium 3.2 mmol/L (3.4-5.1); Sodium 134 mmol/L (137-145); Total Protein 7.4 g/dL (6.3-8.2)
[2018-06-03] MEDS: POTASSIUM CHLORIDE 20 MEQ TAB 40 MEQ PO (20:26)
== END 2018-06-03 21:00 | disposition home or self-care (01) ==
PROVIDERS: Emergency Medicine; Emergency Provider Nurse Practitioner Family; Family Provider Family Medicine; PCP Family Medicine
DX: N39.0 Urinary tract infection, site not specified (principal); R11.2 Nausea with vomiting, unspecified; R53.1 Weakness; R51 Headache
CPT/HCPCS: 70450; 80053; 81003; 81015; 83690; 84484; 85025; 87077; 87086; 87186; 93005; 96361; 96374; 96375; 99285; J1885; J2405

== ENCOUNTER 2019-09-16 11:34 | Inpatient (IN) | payer OTHER, SELFPAY ==
[2019-09-12 13:00] VITALS: BMI 29.8
[2019-09-16] VITALS (10 sets, daily range): BP systolic 119–172; BP diastolic 71–97; PULSE 62–81; RESP 8–15; TEMP 36.2–36.7; O2SAT 95–98; BMI 28.9
--- NOTE | 2019-09-16 11:58 | PM.PREOP ---
Pre-operative Note Interval Note History & Physical reviewed/Exam performed by Physician: Yes Changes to H&P: No
--- NOTE | 2019-09-16 12:00 | P.OP_ITS ---
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 The patient had an injury which likely tore her posterior cruciate ligament and has led to increased instability. She has failed conservative treatment. The nature of the procedure including the risks and benefits, alternatives, postoperative course and expected outcome were discussed and all questions answered. Consent was obtained. Operative site confirmed and marked. Surgeon: Augusto Ny Gas Plant Worker: Ryan Morelos Click Yes if Unassisted: Yes Anesthesia Type: General and Local Operative Notes Findings: The knee had both medial lateral and anterior-posterior laxity. This was corrected by going from a 10 mm MC poly to a 12 mm ultra constrained poly. Closure Type: primary Specimen(s): none sent Applied: implant(s) Estimated Blood Loss (mL): 10 Blood products transfused: none Tourniquet time (min): 30 Procedure in detail: The patient was taken to the operative suite and placed under general anesthesia. The patient was given prophylactic antibiotics prior to surgery. The patient was also given tranexamic acid, 1 g, just prior to surgery for postoperative hemostasis. The lateral knee was prepped and the joint injected with 20 mL of 1% Lidocaine with epinephrine. The knee was then prepped and draped in usual sterile fashion. The leg was exsanguinated with an Esmarch dressing and the tourniquet raised to 250 torr. A 15 cm anterior incision was made. Next a medial trivector arthrotomy was made. The extensor mechanism was marked to ensure accurate repair. Initial exposing dissection was carried out medially and laterally. The soft tissues were then injected with a combination of 20 mL of half percent Marcaine with epinephrine and 20 mL of Exparel. A number of different trial polyethylene trays were used. The best was the 12 mm ultra constrained poly. There was excellent medial-lateral balance throughout motion. Motion was full. There was no posterior laxity. Patellar tracking was [excellent]. The final poly tray was placed. The knee was then irrigated. The extensor mechanism was closed with 5 interrupted #1 Vicryl sutures and a running Quill suture at 90 degrees of flexion. The joint was then injected with a combination of 1 g of tranexamic acid and 20 mL of quarter percent Marcaine with epinephrine. The subcutaneous tissue was closed with 2 0 Vicryl. The skin was closed with 3 0 barbed suture surgical adhesive. An Aquacel dressing and Steve wrap were then applied. The patient tolerated the procedure well and was returned to recovery room in good condition. Post-operative Condition: stable Disposition: PACU Plan for aftercare: Standard total knee protocol. May discharge home tomorrow or tonight depending on pain control and ambulation.
[2019-09-16] MEDS: LACTATED RINGERS 1,000 ML 42 ML IV (12:21)
--- NOTE | 2019-09-16 15:05 | SUR.PREOP ---
PTS SIGNIFICANT OTHER HAS BEEN CALLED AND MESSAGE LEFT ON HIS VOICEMAIL INFORMING HIM THAT THE CASE HAS BEEN DELAYED.
[2019-09-16] MEDS: CEFAZOLIN 2 GM/100 ML FROZ.PIGGY IV (15:55)
--- NOTE | 2019-09-16 16:20 | SUR.OPER ---
Supine on padded OR bed. Pillow under head, arms secured on padded armboards <90 degree abduction. Safety belt across torso. Non-operative leg secured with tape over blanket over lower leg. Operative leg secured in DeMayo/Gerard positioner. Foam padded brace at thigh of operative leg.
[2019-09-16] MEDS: BUPIVACAINE 0.25% W/ EPI (PF) 20 ML, TRANEXAMIC ACID 1,000 MG, SODIUM CHLORIDE 0.9% 10 ML INJ (16:29)
[2019-09-16] MEDS: BUPIVACAINE 0.25% W/ EPI (PF) 40 ML, BUPIVACAINE LIPOSOME 266 MG, SODIUM CHLORIDE 0.9% ... INJ (16:30)
[2019-09-16] MEDS: HYDROMORPHONE 2 MG INJ IV ×3 (17:21→17:31)
[2019-09-16] MEDS: OXYCODONE/ACETAMINOPHEN 5/325 TABLET 1 TAB PO ×2 (17:34→18:20)
--- NOTE | 2019-09-16 18:17 | SUR.PHASEI ---
Pt requested to discharge. Dr. Ny called and VVO for weight bearing as tolerated and keep dressing clean and dry for 7-10 days.
== END 2019-09-16 18:48 | disposition home or self-care (01) | DRG 302 ==
PROVIDERS: Admitting Provider Orthopaedic Surgery; Family Provider Family Medicine; PCP Family Medicine; Visit Provider Orthopaedic Surgery
PROC: 0SRD0JZ Replacement of Left Knee Joint with Synthetic Substitute, Open Approach (ICD-10-PCS; CPT 27447; principal; 2019-09-16 13:45)
DX: T84.023A Instability of internal left knee prosthesis, initial encounter (principal); S86.912A Strain of unspecified muscle(s) and tendon(s) at lower leg level, left leg, initial encounter; X58.XXXA Exposure to other specified factors, initial encounter
CPT/HCPCS: C1776; C9290; J0690; J1170; J2250; J2274; J2704; J3010

== ENCOUNTER 2020-03-10 08:37 | Emergency (ER) | payer OTHER, SELFPAY ==
[2020-03-10 08:47] VITALS: BP 203/91; PULSE 78; RESP 18; TEMP 36.4; O2SAT 99; BMI 31.0
[2020-03-10] MEDS: ONDANSETRON 4 MG/2 ML INJ IV (09:04)
[2020-03-10] MEDS: SODIUM CHLORIDE 0.9% 1,000 ML 1000 ML IV ×2 (09:04→11:43)
[2020-03-10 09:27] LABS: Add Manual Diff / Slide Review NO; Basophils Absolute Auto 0 /uL (0-100); Basophils Percent Auto 0.4 % (0-2); Eosinophils Absolute Auto 0 /uL (0-450); Eosinophils Percent Auto 0.4 % (2-4); Hematocrit 48.2 % (36-46); Hemoglobin 16.3 g/dL (12.0-16.0); Lymphocytes Absolute Auto 700 /uL (1100-4500); Lymphocytes Percent Auto 9.2 % (25-40); Mean Corpuscular HGB Conc 33.9 % (30-36); Mean Corpuscular Hemoglobin 33.7 PG (26-34); Mean Corpuscular Volume 99.3 fL (80-100); Monocytes Absolute Auto 700 /uL (0-900); Monocytes Percent Auto 8.2 % (3-14); Neutrophils Absolute Auto 6600 /uL (1500-7000); Neutrophils Percent Auto 81.8 % (50-75); Platelet Count 226 X10^3/uL (150-400); Red Blood Cell Count 4.85 X10^6/uL (4.0-5.2)
[2020-03-10 09:58] LABS: Bacteria Urine Few (2-10); Culture Indicated Urine Specimen Cultured; Mucus Urine 1+ (Negative); RBC Urine 10-30/HPF (0-5/HPF); Squamous Epithelial Cell Urine 1-5 /HPF (0-5/HPF); WBC Urine 30-100/HPF (0-5/HPF)
[2020-03-10 10:09] LABS: Alanine Aminotransferase 20 IU/L (<35); Albumin 4.6 g/dL (3.5-5.0); Albumin Globulin Ratio 1.3 (1.0-2.8); Alkaline Phosphatase 71 U/L (38-126); Aspartate Aminotransferase 36 IU/L (14-36); BUN Creatinine Ratio 15.6 (6-22); Bilirubin Total 0.8 mg/dL (0.2-1.3); Blood Urea Nitrogen 10 mg/dL (7-17); Calcium 9.8 mg/dL (8.4-10.2); Carbon Dioxide 26 mmol/L (22-32); Chloride 97 mmol/L (98-107); Estimated Glomerular Filt Rate > 60.0 mL/min (>60); Globulin 3.6 g/dL (1.7-4.1); Glucose 119 mg/dL (80-110); HEMOLYSIS 16 (0-50); Lipase 68 U/L (23-300); Potassium 3.9 mmol/L (3.4-5.1); Sodium 134 mmol/L (137-145); Total Protein 8.2 g/dL (6.3-8.2)
--- NOTE | 2020-03-10 10:10 | ED_ITS ---
HPI - Nausea/Vomiting/Diarrhea General Chief complaint: Abdominal Pain Stated complaint: sick for three days Time Seen by Provider: 03/10/20 08:45 Source: patient and family Mode of arrival: Wheelchair Limitations: no limitations History of Present Illness HPI Narrative: Patient here for nausea vomiting, nonbloody, continuously for the past 3 days. Patient seen here for this same problem June 03, 2018. On a ay on that week patient states it was very hot and has the symptoms as this past week. This past Thursday patient states she was working in her home. Worked pretty hard. It was not hot inside the house. Work more than usual. [place] hot and sweaty and nauseated and chills. Denies denies denies any chest pain back pain abdominal pain. No bloody diarrhea. No recent illness no cough cold congestion. No sick contacts. Patient complains again of a headache just as she did [address] years [address] She [address] scan EKG and heart enzymes done as well. Please see report below of the CT scan from that year. No numbness tingling weakness. No slurred speech or facial droop this week. Related Data Home Medications Medication Instructions Recorded Confirmed gabapentin 300 mg PO SEEINSTR 06/03/18 03/10/20 paroxetine HCl 20 mg PO DAILY 06/03/18 03/10/20 trazodone 25 mg PO BEDTIME 06/03/18 03/10/20 Previous Rx's Medication Instructions Recorded oxycodone 5 mg PO Q4H PRN #42 tab 09/16/19 nitrofurantoin macrocrystal 100 mg PO BID #10 cap 03/10/20 promethazine 25 mg PO TID PRN #7 tab 03/10/20 Allergies Allergy/AdvReac Type Severity Reaction Status Date / Time Sulfa (Sulfonamide Allergy Severe CHILDHOOD Verified 03/10/20 08:56 Antibiotics) RX- [SULFA (SULFONAMIDE swelling, ANTIBIOTICS)] comatose Review of Systems Review of Systems Narrative: GENERAL: Complaints of fatigue chills and sweats HEENT: Denies sinus pain, ear pain, sore throat, difficulty swallowing, dizziness. RESPIRATORY: Denies dyspnea, cough, wheezing, hemoptysis, sputum. CARDIOVASCULAR: Denies chest pain, palpitations, orthopnea, edema, GASTROINTESTINAL: No abdominal pain or diarrhea or blood in stools. Complains of nonbloody vomiting : Denies dysuria, frequency, incontinence, hematuria, urinary retention. MUSCULOSKELETAL: denies weakness, joint pain, or bony pain no back pain SKIN: Denies rash, skin lesions, or other NEUROLOGIC: Denies weakness, headache, numbness, change in speech, confusion, seizures, incoordination. PSYCHIATRIC: No concerning psychosocial issues. 12 point review of systems is negative except for those stated above ROS Unobtainable: All systems reviewed & are unremarkable except as noted in HPI and below Patient History Medical History Ankle fracture (Acute ~2017) Arthritis (Acute) Depression (Acute) Diverticulitis (Acute) Diverticulosis (Acute) Osteoarthritis (Acute) Tingling (Acute) Surgical History History of arthroplasty of left knee (Acute ~2015) History of colonoscopy (Acute ~08/2019) S/P right unicompartmental knee replacement (Acute 06/15/18) Social History household members: significant other Smoking Status: Former smoker alcohol intake: current Smoking Status: Former smoker alcohol intake frequency: a few times a week Substance Use Type: does not use Exam Narrative Exam Narrative: GENERAL: [69] year old patient appears stated age. Well- nourished, well-developed patient, in no distress, not toxic HEAD: Atraumatic. Normocephalic. EYES: Pupils equal round and reactive. Extraocular motions intact. No scleral icterus. No injection or drainage. ENT: Nose without bleeding, purulent drainage. Throat without erythema, tonsillar hypertrophy or exudate. Airway patent. NECK: Trachea midline. Non tender CARDIOVASCULAR: Regular rate and rhythm without murmurs, gallops, or rubs. RESPIRATORY: Clear to auscultation. Breath sounds equal bilaterally. No wheezes, rales, or rhonchi. GASTROINTESTINAL: Abdomen soft, non-tender, nondistended. No peritoneal signs EXTREMITIES: No edema or joint tenderness. BACK: Nontender without deformity or crepitance. No flank tenderness. NEURO: AOx3. SKIN: No rash or erythema of visible areas Initial Vital Signs Initial Vital Signs: Vital Signs Temperature 97.5 F L 03/10/20 08:47 Pulse Rate 78 03/10/20 08:47 Respiratory Rate 18 03/10/20 08:47 Blood Pressure 203/91 H 03/10/20 08:47 Pulse Oximetry 99 03/10/20 08:47 Course Course Course Narrative: Patient feeling much better after Zofran and Reglan Benadryl and 2 L of normal saline. Patient and desire discharge home. Headache nearly gone. Blood pressure has improved 149/71 Orders Ordered: ED Orders 03/10/20 09:02 EKG-12 Lead Routine 03/10/20 09:10 Complete Blood Count AUTO DIFF Stat 03/10/20 09:41 Urine Culture Stat Urine Microscopic Stat 03/10/20 09:49 Comprehensive Metabolic Panel Stat Lipase Stat Troponin & CK Cardiac Panel Stat Discontinued Medications Diphenhydramine HCl (Benadryl) 25 mg IV NOW ONE Stop: 03/10/20 10:12 Last Admin: 03/10/20 10:16 Dose: 25 mg Documented by: AVERY Sodium Chloride (Normal Saline 0.9%) 500 mls @ 1,000 mls/hr IV BOLUS ONE Stop: 03/10/20 09:18 Last Admin: 03/10/20 09:05 Dose: Not Given Documented by: JOSE Sodium Chloride (Normal Saline 0.9%) 1,000 mls @ 1,000 mls/hr IV BOLUS ONE Stop: 03/10/20 10:01 Last Infusion: 03/10/20 11:43 Dose: 0 mls/hr Documented by: Admin: 03/10/20 09:04 Dose: 1,000 mls/hr Documented by: JOSE Sodium Chloride (Normal Saline 0.9%) 1,000 mls @ 1,000 mls/hr IV BOLUS ONE Stop: 03/10/20 11:05 Last Infusion: 03/10/20 12:52 Dose: 0 mls/hr Documented by: Admin: 03/10/20 11:43 Dose: 1,000 mls/hr Documented by: JOSE Metoclopramide HCl (Reglan) 10 mg IV NOW ONE Stop: 03/10/20 10:12 Last Admin: 03/10/20 10:16 Dose: 10 mg Documented by: AVERY Ondansetron HCl (Zofran) 4 mg IV NOW ONE Stop: 03/10/20 08:50 Last Admin: 03/10/20 09:04 Dose: 4 mg Documented by: JOSE Reevaluation(s) Reevaluation #1: Time 12:17 p.m.. Patient has been up and gone to the bathroom. No nausea or vomiting. No headache. No altered mental status. Patient and desire discharge home Vital Signs Vital signs: Vital Signs - 8 hr 03/10/20 08:47 03/10/20 11:27 03/10/20 12:52 Temperature 97.5 F L Pulse Rate 78 66 76 Respiratory Rate 18 Blood Pressure 203/91 H 162/101 H Blood Pressure [Left Arm] 149/71 H Pulse Oximetry 99 98 99 MDM - Nausea/Vomiting/Diarrhea Differential Diagnosis Differential diagnosis: Likely gastroenteritis, dehydration and other (UTI/gastritis) Medical Records Attestation: I reviewed the patient's medical records. Medical records narrative: Medical record from June 03, 2018 Lab Data Attestation: I reviewed the patient's lab results. Result diagrams: 03/10/20 09:10 03/10/20 09:49 Labs: Lab Results 03/10/20 03/10/20 03/10/20 Range/Units 09:10 09:41 09:49 WBC 8.0 (4.5-11.0) X10^3/uL RBC 4.85 (4.0-5.2) X10^6/uL Hgb 16.3 H (12.0-16.0) g/dL Hct 48.2 H (36-46) % MCV 99.3 (80-100) fL MCH 33.7 (26-34) PG MCHC 33.9 (30-36) % RDW 14.0 (11.6-14.8) % Plt Count 226 (150-400) X10^3/uL Neut % (Auto) 81.8 H (50-75) % Lymph % (Auto) 9.2 L (25-40) % [place] % (Auto) 8.2 (3-14) % Eos % (Auto) 0.4 L (2-4) % Baso % (Auto) 0.4 (0-2) % Neut # (Auto) 6600 (3678-8005) /uL Lymph # (Auto) 700 L (1748-5682) /uL [place] # (Auto) 700 (0-900) /uL Eos # (Auto) 0 (0-450) /uL Baso # (Auto) 0 (0-100) /uL Sodium 134 L (137-145) mmol/L Potassium 3.9 (3.4-5.1) mmol/L Chloride 97 L (98-107) mmol/L Carbon Dioxide 26 (22-32) mmol/L BUN 10 (7-17) mg/dL Creatinine 0.64 (0.52-1.04) mg/dL Estimated GFR > 60.0 (>60) mL/min BUN/Creatinine Ratio 15.6 (6-22) Glucose 119 H (80-110) mg/dL Calcium 9.8 (8.4-10.2) mg/dL Total Bilirubin 0.8 (0.2-1.3) mg/dL AST 36 (14-36) IU/L ALT 20 (<35) IU/L Alkaline Phosphatase 71 (38-126) U/L Total Creatine Kinase (30-135) U/L CK-MB (CK-2) (<2.37) ng/mL CK-MB (CK-2) Rel Index (1.5-5.0) % Troponin I (0.01-0.034) ng/mL Total Protein 8.2 (6.3-8.2) g/dL Albumin 4.6 (3.5-5.0) g/dL Globulin 3.6 (1.7-4.1) g/dL Albumin/Globulin Ratio 1.3 (1.0-2.8) Lipase 68 (23-300) U/L Urine RBC 10-30/hpf H (0-5/HPF) Urine WBC 30-100/hpf H (0-5/HPF) Ur Squamous Epith Cells 1-5 /hpf (0-5/HPF) Urine Bacteria Few (2-10) H (None) Urine Mucus 1+ H (Negative) Ur Culture Indicated? Specimen cultured 03/10/20 Range/Units 09:49 WBC (4.5-11.0) X10^3/uL RBC (4.0-5.2) X10^6/uL Hgb (12.0-16.0) g/dL Hct (36-46) % MCV (80-100) fL MCH (26-34) PG MCHC (30-36) % RDW (11.6-14.8) % Plt Count (150-400) X10^3/uL Neut % (Auto) (50-75) % Lymph % (Auto) (25-40) % [place] % (Auto) (3-14) % Eos % (Auto) (2-4) % Baso % (Auto) (0-2) % Neut # (Auto) (1324-0581) /uL Lymph # (Auto) (4342-5182) /uL [place] # (Auto) (0-900) /uL Eos # (Auto) (0-450) /uL Baso # (Auto) (0-100) /uL Sodium (137-145) mmol/L Potassium (3.4-5.1) mmol/L Chloride (98-107) mmol/L Carbon Dioxide (22-32) mmol/L BUN (7-17) mg/dL Creatinine (0.52-1.04) mg/dL Estimated GFR (>60) mL/min BUN/Creatinine Ratio (6-22) Glucose (80-110) mg/dL Calcium (8.4-10.2) mg/dL Total Bilirubin (0.2-1.3) mg/dL AST (14-36) IU/L ALT (<35) IU/L Alkaline Phosphatase (38-126) U/L Total Creatine Kinase 203 H (30-135) U/L CK-MB (CK-2) 4.17 H (<2.37) ng/mL CK-MB (CK-2) Rel Index 2.1 (1.5-5.0) % Troponin I < 0.012 (0.01-0.034) ng/mL Total Protein (6.3-8.2) g/dL Albumin (3.5-5.0) g/dL Globulin (1.7-4.1) g/dL Albumin/Globulin Ratio (1.0-2.8) Lipase (23-300) U/L Urine RBC (0-5/HPF) Urine WBC (0-5/HPF) Ur Squamous Epith Cells (0-5/HPF) Urine Bacteria (None) Urine Mucus (Negative) Ur Culture Indicated? Urine Dip Bedside Urine Glucose Negative Bedside Urine Bilirubin - Negative Bedside Urine Ketone +++ 80 Urine Specific [place] 1.020 Bedside Urine Occult Blood ++ Bedside Urine pH 7.0 Bedside Urine Protein +/- 15 Bedside Urine Urobilinogen +/- 1mg Bedside Urine Nitrite - Negative Bedside Urine Leukocytes +++ [address] scan from June 03, 2018: Radiologist's Impression: [address] [address] [address] Scan Report Signed Patient: Nikolas Castillo BMR#: [id number] : [id number] Age/Sex: 68 / FDate of Service: 06/03/18 Loc: ED Accession Number: [id number] Procedure: CT head/brain wo con Ordering Provider: Izzy Albarado-MYLA PROCEDURE: CT HEAD/BRAIN WO CON INDICATIONS: severe headache, weakness TECHNIQUE: Noncontrast 4.5 mm thick angled axial sections acquired from the foramen magnum to the vertex, with coronal and sagittal reformats. For radiation dose reduction, the following was used: automated exposure control, adjustment of mA and/or kV according to patient size. COMPARISON: None. FINDINGS: Image quality: Excellent. CSF spaces: Basal cisterns are patent. No extra-axial fluid collections. The ventricles are symmetric in size and shape. Brain: No intracranial bleeds or masses. There is cerebral volume loss for age, with resultant ventricular and sulcal prominence. There are periventricular and deep white matter chronic small vessel ischemic changes. There is intracranial internal carotid artery atherosclerosis. Skull and face: Calvarium and visualized facial bones appear intact, without suspicious lesions. Sinuses: Visualized sinuses and mastoids are clear. IMPRESSION: 1. No acute intracranial process. 2. Mild atrophy and chronic microvascular ischemic changes. Dictated by: Anne Yoder M.D. on 06/03/2018 at 18:15 Approved by: Anne Yoder M.D. on 06/03/2018 at 18:17 ECG Data Attestation: I personally reviewed and interpreted this ECG as follows: Prior ECG tracings: available for review Interpretation: EKG at 9:02 a.m.. Sinus rhythm with premature atrial complexes. Otherwise normal EKG. Ventricular rate 71. KS interval 170, QRS duration 82, QTC 406, no ST elevation depression. Compared to EKG dated June 03, 2018 at 3:20 p.m. no changes Discharge Plan Departure Patient Disposition: Home Clinical Impression: Urinary tract infection Qualifiers: Urinary tract infection type: site unspecified Hematuria presence: without hematuria Qualified Code(s): N39.0 - Urinary tract infection, site not specified Nausea & vomiting Qualifiers: Vomiting type: unspecified Vomiting Intractability: non-intractable Qualified Code(s): R11.2 - Nausea with vomiting, unspecified Discharge Date/Time: 03/10/20 12:52 Instructions: DI for Urinary Tract Infection (UTI), Nausea and Vomiting-Adult Activity Restrictions/Additional Instructions: See family doctor next week for recheck. Return if worse. Keep well hydrated. Prescriptions: New nitrofurantoin macrocrystal 100 mg capsule 100 mg PO BID Qty: 10 RF: 0 promethazine 25 mg tablet 25 mg PO TID PRN (Reason: nausea and vomiting) Qty: 7 RF: 0 No Action trazodone 50 mg tablet 25 mg PO BEDTIME RF: 0 paroxetine HCl 20 mg tablet 20 mg PO DAILY RF: 0 gabapentin 300 mg capsule 300 mg PO SEEINSTR RF: 0 oxycodone 5 mg tablet 5 mg PO Q4H PRN (Reason: pain) Qty: 42 RF: 0 Referrals: Julianna Ponce MD [Primary Care Provider] -
[2020-03-10] MEDS: METOCLOPRAMIDE 10 MG/2 ML INJ IV (10:16)
[2020-03-10] MEDS: diphenhydrAMINE 50 MG/ML VIAL 25 MG IV (10:16)
[2020-03-10 10:25] LABS: Creatine Kinase 203 U/L (30-135)
[2020-03-10 10:37] LABS: Troponin I < 0.012 ng/mL (0.01-0.034)
[2020-03-10 10:40] LABS: CKMB % Relative Index 2.1 % (1.5-5.0); Creatine Kinase MB 4.17 ng/mL (<2.37)
[2020-03-10 11:27] VITALS: BP 149/71; PULSE 66; O2SAT 98
[2020-03-10 12:52] VITALS: BP 162/101; PULSE 76; O2SAT 99
== END 2020-03-10 12:52 | disposition home or self-care (01) ==
PROVIDERS: Emergency Provider Emergency Medicine; Family Provider Family Medicine; PCP Family Medicine
DX: N39.0 Urinary tract infection, site not specified (principal); R11.2 Nausea with vomiting, unspecified; R53.1 Weakness; R51 Headache
CPT/HCPCS: 36415; 80053; 81003; 81015; 82550; 82553; 83690; 84484; 85025; 87077; 87086; 87186; 93005; 96361; 96374; 96375; 99284; J1200; J2405; J2765

== ENCOUNTER 2020-04-20 09:12 | Emergency (ER) | payer OTHER, SELFPAY ==
[2020-04-20 09:22] VITALS: BP 186/80; PULSE 77; TEMP 37.1; O2SAT 97; BMI 31.3
[2020-04-20 09:47] LABS: Bacteria Urine Few (2-10); Culture Indicated Urine Specimen Cultured; Mucus Urine 1+ (Negative); RBC Urine 5-10/HPF (0-5/HPF); Squamous Epithelial Cell Urine 1-5 /HPF (0-5/HPF); WBC Urine >100/HPF (0-5/HPF)
--- NOTE | 2020-04-20 09:48 | ED_ITS ---
HPI - Abdominal Pain General Chief Complaint: Abdominal Pain Stated Complaint: ABDOMINAL/LOW BACK PAIN, SICK YESTERDAY Time Seen by Provider: 04/20/20 09:33 Source: patient Mode of arrival: Ambulatory Limitations: no limitations History of Present Illness HPI narrative: CC: Epigastric abdominal pain with persistent nausea and vomiting HPI: The patient is a 69-year-old female who presents to the emergency departm ent with abdominal pain. She states that it started yesterday. It is a sharp pain that is intermittently crampy of a most of the time sharp. It is 8/10 in intensity. She points to the epigastrium periumbilical and right lower quadrant areas for the pain and discomfort. She has had episodes like this in the past with the last episode occurring on ThursdayMarch 26. At that time her test was negative except for a bladder infection. The patient denies any hematochezia but has had diarrhea with persistent nausea and vomiting. She has had multiple episodes of vomiting. She admits to history of a hiatal hernia but states that she has never been told that she had peptic ulcer disease or an ulcer or GERD. She denies a history of Crohn's disease, ulcerative colitis, irritable bowel syndrome but admits to a history of diverticulosis diverticulitis. She denies any history of pancreatitis diabetes mellitus hypertension myocardial infarction or COPD. Related Data Home Medications Medication Instructions Recorded Confirmed gabapentin 300 mg PO SEEINSTR 06/03/18 03/10/20 paroxetine HCl 20 mg PO DAILY 06/03/18 03/10/20 trazodone 25 mg PO BEDTIME 06/03/18 03/10/20 Previous Rx's Medication Instructions Recorded oxycodone 5 mg PO Q4H PRN #42 tab 09/16/19 nitrofurantoin macrocrystal 100 mg PO BID #10 cap 03/10/20 promethazine 25 mg PO TID PRN #7 tab 03/10/20 ciprofloxacin HCl [Cipro] 500 mg PO BID #20 tab 04/20/20 hydrocodone-acetaminophen [[place]] 1 tab PO Q4-6H PRN #12 tab 04/20/20 metronidazole [Flagyl] 500 mg PO Q12H #20 tab 04/20/20 prochlorperazine maleate 10 mg PO Q6H PRN #20 tab 04/20/20 [Compazine] Allergies Allergy/AdvReac Type Severity Reaction Status Date / Time Sulfa (Sulfonamide Allergy Severe CHILDHOOD Verified 03/10/20 08:56 Antibiotics) RX- [SULFA (SULFONAMIDE swelling, ANTIBIOTICS)] comatose Review of Systems Review of Systems Narrative: REVIEW OF SYSTEMS: CONSTITUTIONAL: She has intermittently felt feverish with chills and sweats especially when vomiting. NEUROLOGICAL: She has a mild headache but denies any numbness tingling paresthesias anesthesia is paresis or paralysis. EENT: She has had no loss of vision sore throat or nasal congestion. She denies any dysphasia CARDIO-PULMONARY: She denies any chest pain other than the pain that radiates from her epigastrium into her lower chest. She has had no shortness of breath or cough. She denies any dizziness or lightheadedness. She has been burping and belching much without any reflux. ENDOCRINE: GASTROINTESTINAL: She has had abdominal pain as described above. She has had persistent nausea and vomiting with diarrhea without melena or hematochezia. GENITAL URINARY: She has had a chronic urinary tract infection and her records reveal that she is on Macrodantin. However she denies any dysuria pyuria frequency or urgency. MUSCULOSKELETAL/ RHEUMATOLOGICAL: She denies any significant back pain. DERMATOLOGICAL: She has had no skin rash hives or itching no bleeding or bruising noted. Patient History Medical History Ankle fracture (Acute ~2017) Arthritis (Acute) Depression (Acute) Diverticulitis (Acute) Diverticulosis (Acute) Osteoarthritis (Acute) Tingling (Acute) Surgical History History of arthroplasty of left knee (Acute ~2015) History of colonoscopy (Acute ~08/2019) S/P right unicompartmental knee replacement (Acute 06/15/18) Social History household members: significant other Smoking Status: Former smoker alcohol intake: current Smoking Status: Former smoker alcohol intake frequency: a few times a week Substance Use Type: does not use Exam Narrative Exam Narrative: PHYSICAL EXAM: CONSTITUTIONAL: Awake, Alert, Oriented, Coherent, Cooperative in NAD. Does not appear toxic or ill. HEAD: AT/NC EENT: PERRL, FROM of eyes, no discharge, no nystagmus MOUTH:Oral mucosa is moist and pink, posterior pharynx is without erythema or exudate. NECK: Supple, no obvious JVD, Trachea is midline without stridor, no palpable LN. SPINE: Palpationof the cervical, Thoracic, Lumbar or Sacral spine reveals no gross deformity or tenderness. No CVA tenderness. THORAX: No deformity, retractions, chest wall tenderness. LUNGS: Clear, symmetrical breath sounds without respiratory distress. HEART: Normal heart tones, regular rhythm and rate without murmur. ABDOMEN: The patient's abdomen is soft tender in the epigastrium right upper quadrant and right lower quadrant. There is no significant guarding rebound or rigidity. No palpable organomegaly. Bowel sounds are present. LYMPHATIC: no palpable spleen. EXTREMITIES: No edema, deformity, tenderness or cyanosis. SKIN: No rash, bruising, petechiae or purpura. NEURO: Awake, alert, oriented, conversive, cranial nerves II-XII are symmetrical , moves all 4 extremities and is ambulatory. Initial Vital Signs Initial Vital Signs: Vital Signs Temperature 98.7 F 04/20/20 09:22 Pulse Rate 77 04/20/20 09:22 Blood Pressure 186/80 H 04/20/20 09:22 Pulse Oximetry 97 04/20/20 09:22 Course Course Course Narrative: 1129: The patient was updated that we are waiting for her CT results. She was informed that her laboratory tests were all basically within normal limits except that she has a persistent urinary tract infection. With her tenderness in the left costovertebral angle and suprapubic region the patient may have a low-grade pyelonephritis. However her white blood count is not at the he did. She can have significant nausea vomiting and retching from a urinary tract infection and the muscle strain from the vomiting may be causing her upper abdominal pain and discomfort. Her CT results remain pending. 1149: CT of the patient's abdomen reveals 1. Diffuse inflammatory process involving the sigmoid colon. The sigmoid has numerous diverticuli. There is significant inflammatory changes in the surrounding fat. Findings may potentially represent sigmoid diverticulitis. However, cannot exclude sigmoid colitis, including infectious and inflammatory etiologies. 2. Marked thickening of the lateral wall, and an asymmetric fashion, with flecks of air present within the bladder. Findings may potentially represent bacterial cystitis unrelated to the process involving the sigmoid. However consider possible colovesicular fistula between the sigmoid and bladder. 3. Incidental note is made of extensive degenerative changes in the lumbar spine with severe canal stenosis at L3-L4 The patient will be treated with IV Cipro and Flagyl as though she has acute sigmoid diverticulitis/colitis with an acute urinary tract infection with hemorrhagic cystitis. The patient will be referred to her primary care physician to be seen in follow-up and possibly referred to a urologist to evalu ate her for a possible colovesical fistula with the sigmoid colon. She will be discharged home and placed on Cipro and Flagyl orally for the next 10 days. Because of the medications and drug interaction she will be prescribed Compazine 10 mg every 6 hours for nausea and vomiting. She will be given a prescription for [place] 5/325 as a rescue medication for pain and discomfort 12. Tablets. Orders Ordered: Discontinued Medications Sodium Chloride (Normal Saline 0.9%) 1,000 mls @ 1,000 mls/hr IV BOLUS ONE Stop: 04/20/20 10:45 Last Infusion: 04/20/20 11:47 Dose: 0 mls/hr Documented by: Admin: 04/20/20 10:11 Dose: 1,000 mls/hr Documented by: SHAKEEL Ciprofloxacin (Cipro) 400 mg in 200 mls @ 200 mls/hr IV Q12H CARLOS Last Infusion: 04/20/20 14:04 Dose: 200 mls/hr Documented by: Admin: 04/20/20 12:06 Dose: 200 mls/hr Documented by: SHAKEEL Metronidazole (Flagyl) 500 mg in 100 mls @ 100 mls/hr IV NOW ONE Stop: 04/20/20 12:52 Last Admin: 04/20/20 13:51 Dose: 100 mls/hr Documented by: CATHERINE Morphine Sulfate (Morphine) 4 mg IV NOW ONE Stop: 04/20/20 09:47 Last Admin: 04/20/20 14:04 Dose: Not Given Documented by: CATHERINE Ondansetron HCl (Zofran) 4 mg IV NOW ONE Stop: 04/20/20 09:47 Last Admin: 04/20/20 14:04 Dose: Not Given Documented by: CATHERINE Vital Signs Vital signs: Vital Signs - 8 hr 04/20/20 09:22 04/20/20 10:15 Temperature 98.7 F Pulse Rate 77 67 Blood Pressure 186/80 H Blood Pressure [Right Arm] 140/65 Pulse Oximetry 97 98 MDM - Abdominal Pain Medical Records Attestation: I reviewed the patient's medical records. Lab Data Attestation: I reviewed the patient's lab results. Result diagrams: 04/20/20 10:00 04/20/20 10:00 Labs: Lab Results 04/20/20 04/20/20 04/20/20 Range/Units 09:30 10:00 10:00 WBC 6.7 (4.5-11.0) X10^3/uL RBC 4.54 (4.0-5.2) X10^6/uL Hgb 15.2 (12.0-16.0) g/dL Hct 43.7 (36-46) % MCV 96.1 (80-100) fL MCH 33.4 (26-34) PG MCHC 34.7 (30-36) % RDW 13.6 (11.6-14.8) % Plt Count 212 (150-400) X10^3/uL Neut % (Auto) 83.5 H (50-75) % Lymph % (Auto) 12.1 L (25-40) % [place] % (Auto) 4.2 (3-14) % Eos % (Auto) 0.0 L (2-4) % Baso % (Auto) 0.2 (0-2) % Neut # (Auto) 5600 (1344-1915) /uL Lymph # (Auto) 800 L (0963-3264) /uL [place] # (Auto) 300 (0-900) /uL Eos # (Auto) 0 (0-450) /uL Baso # (Auto) 0 (0-100) /uL PT 11.6 (10.1-12.7) SECONDS INR 1.0 (0.9-1.3) APTT 29 (26.4-36.2) SECONDS Sodium (137-145) mmol/L Potassium (3.4-5.1) mmol/L Chloride (98-107) mmol/L Carbon Dioxide (22-32) mmol/L BUN (7-17) mg/dL Creatinine (0.52-1.04) mg/dL Estimated GFR (>60) mL/min BUN/Creatinine Ratio (6-22) Glucose (80-110) mg/dL Calcium (8.4-10.2) mg/dL Total Bilirubin (0.2-1.3) mg/dL AST (14-36) IU/L ALT (<35) IU/L Alkaline Phosphatase (38-126) U/L Total Protein (6.3-8.2) g/dL Albumin (3.5-5.0) g/dL Globulin (1.7-4.1) g/dL Albumin/Globulin Ratio (1.0-2.8) Lipase (23-300) U/L Urine RBC 5-10/hpf H (0-5/HPF) Urine WBC >100/hpf H (0-5/HPF) Ur Squamous Epith Cells 1-5 /hpf (0-5/HPF) Urine Bacteria Few (2-10) H (None) Urine Mucus 1+ H (Negative) Ur Culture Indicated? Specimen cultured 04/20/20 Range/Units 10:00 WBC (4.5-11.0) X10^3/uL RBC (4.0-5.2) X10^6/uL Hgb (12.0-16.0) g/dL Hct (36-46) % MCV (80-100) fL MCH (26-34) PG MCHC (30-36) % RDW (11.6-14.8) % Plt Count (150-400) X10^3/uL Neut % (Auto) (50-75) % Lymph % (Auto) (25-40) % [place] % (Auto) (3-14) % Eos % (Auto) (2-4) % Baso % (Auto) (0-2) % Neut # (Auto) (1661-0429) /uL Lymph # (Auto) (2909-3295) /uL [place] # (Auto) (0-900) /uL Eos # (Auto) (0-450) /uL Baso # (Auto) (0-100) /uL PT (10.1-12.7) SECONDS INR (0.9-1.3) APTT (26.4-36.2) SECONDS Sodium 134 L (137-145) mmol/L Potassium 3.6 (3.4-5.1) mmol/L Chloride 97 L (98-107) mmol/L Carbon Dioxide 25 (22-32) mmol/L BUN 11 (7-17) mg/dL Creatinine 0.50 L (0.52-1.04) mg/dL Estimated GFR > 60.0 (>60) mL/min BUN/Creatinine Ratio 22.0 (6-22) Glucose 157 H (80-110) mg/dL Calcium 10.3 H (8.4-10.2) mg/dL Total Bilirubin 0.5 (0.2-1.3) mg/dL AST 39 H (14-36) IU/L ALT 21 (<35) IU/L Alkaline Phosphatase 85 (38-126) U/L Total Protein 8.8 H (6.3-8.2) g/dL Albumin 4.9 (3.5-5.0) g/dL Globulin 3.9 (1.7-4.1) g/dL Albumin/Globulin Ratio 1.3 (1.0-2.8) Lipase 140 (23-300) U/L Urine RBC (0-5/HPF) Urine WBC (0-5/HPF) Ur Squamous Epith Cells (0-5/HPF) Urine Bacteria (None) Urine Mucus (Negative) Ur Culture Indicated? Point of care testing: Urine Dip Bedside Urine Glucose Negative Bedside Urine Bilirubin - Negative Bedside Urine Ketone +++ 80 Urine Specific [place] 1.030 Bedside Urine Occult Blood +++ Bedside Urine pH 6.0 Bedside Urine Protein ++ 100 Bedside Urine Urobilinogen +/- 1mg Bedside Urine Nitrite - Negative Bedside Urine Leukocytes +++ 500 Esterase ECG Data Attestation: I personally reviewed and interpreted this ECG as follows: Interpretation: The patient's EKG obtained on April 20, 2020 reveals a sinus rhythm with a ventricular rate of 70. She has a borderline first-degree AV block with a [place] interval of 206 milliseconds. QTC is slightly prolonged at 463 milliseconds. She has a left axis deviation. T-waves are inverted in leads V1 and III. She has a QS wave in lead III and AVF. This suggests the possibility of a possible old inferior wall [place]. The rest of her EKG appears to be normal without any acute diagnostic ST segment changes. Discharge Plan Departure Patient Disposition: Home Clinical Impression: Vomiting and diarrhea, Acute cystitis with hematuria, Sigmoid diverticulitis Abdominal pain Qualifiers: Abdominal location: generalized Qualified Code(s): R10.84 - Generalized abdominal pain Discharge Date/Time: 04/20/20 14:55 Instructions: DI for Diverticulitis, DI for Urinary Tract Infection (UTI), DI for Abdominal Pain-Adult, DI for Colitis Activity Restrictions/Additional Instructions: 11. 1. You must drink 2-3 L of fluid per day to keep yourself well hydrated. 2. Follow-up with your primary care physician to be re-evaluated. You may need to be referred to a urologist to make sure that there is no fistula between your sigmoid colon an your bladder with chronic recurring urinary tract infections. The CT scan revealed air in your bladder which may come from a connection with the sigmoid colon or may be just caused by the acute urinary tract infection. This will need to be followed and further evaluated. 3. A CT scan revealed that you have what appears to be a sigmoid diverticulitis/colitis. You may eventually need to have a repeat colonoscopy arranged by your primary care physician. In the meantime we are going to place you on Cipro and Flagyl for this infection. The Cipro should help to treat your urinary tract infection. However you will need to be re-evaluated by your primary care physician in 2-3 days. If the pain becomes worse developed high fever or developed intractable nausea and vomiting you need to return to the emergency department. 4. You have been given a prescription for [place] all 5/325 to be used as a rescue medication for severe pain and discomfort. If this does not relieve your pain and discomfort you need to return to the emergency department to be re- evaluated. Prescriptions: New prochlorperazine maleate [Compazine] 10 mg tablet 10 mg PO Q6H PRN (Reason: nausea and vomiting) Qty: 20 RF: 0 ciprofloxacin HCl [Cipro] 500 mg tablet 500 mg PO BID Qty: 20 RF: 0 metronidazole [Flagyl] 500 mg tablet 500 mg PO Q12H Qty: 20 RF: 0 hydrocodone-acetaminophen [[place]] 5-325 mg tablet 1 tab PO Q4-6H PRN (Reason: pain) Qty: 12 RF: 0 No Action trazodone 50 mg tablet 25 mg PO BEDTIME RF: 0 paroxetine HCl 20 mg tablet 20 mg PO DAILY RF: 0 gabapentin 300 mg capsule 300 mg PO SEEINSTR RF: 0 oxycodone 5 mg tablet 5 mg PO Q4H PRN (Reason: pain) Qty: 42 RF: 0 nitrofurantoin macrocrystal 100 mg capsule 100 mg PO BID Qty: 10 RF: 0 promethazine 25 mg tablet 25 mg PO TID PRN (Reason: nausea and vomiting) Qty: 7 RF: 0 Referrals: Julianna Ponce MD [Primary Care Provider] -
[2020-04-20] MEDS: SODIUM CHLORIDE 0.9% 1,000 ML 1000 ML IV (10:11)
[2020-04-20 10:15] VITALS: BP 140/65; PULSE 67; O2SAT 98
[2020-04-20 10:17] LABS: Add Manual Diff / Slide Review NO; Basophils Absolute Auto 0 /uL (0-100); Basophils Percent Auto 0.2 % (0-2); Eosinophils Absolute Auto 0 /uL (0-450); Hematocrit 43.7 % (36-46); Hemoglobin 15.2 g/dL (12.0-16.0); Lymphocytes Absolute Auto 800 /uL (1100-4500); Lymphocytes Percent Auto 12.1 % (25-40); Mean Corpuscular HGB Conc 34.7 % (30-36); Mean Corpuscular Hemoglobin 33.4 PG (26-34); Mean Corpuscular Volume 96.1 fL (80-100); Monocytes Absolute Auto 300 /uL (0-900); Monocytes Percent Auto 4.2 % (3-14); Neutrophils Absolute Auto 5600 /uL (1500-7000); Neutrophils Percent Auto 83.5 % (50-75); Platelet Count 212 X10^3/uL (150-400); Red Blood Cell Count 4.54 X10^6/uL (4.0-5.2); Red Cell Distribution Width 13.6 % (11.6-14.8); White Blood Cell Count 6.7 X10^3/uL (4.5-11.0)
[2020-04-20 10:26] LABS: Alanine Aminotransferase 21 IU/L (<35); Albumin 4.9 g/dL (3.5-5.0); Albumin Globulin Ratio 1.3 (1.0-2.8); Alkaline Phosphatase 85 U/L (38-126); Aspartate Aminotransferase 39 IU/L (14-36); Bilirubin Total 0.5 mg/dL (0.2-1.3); Blood Urea Nitrogen 11 mg/dL (7-17); Calcium 10.3 mg/dL (8.4-10.2); Carbon Dioxide 25 mmol/L (22-32); Chloride 97 mmol/L (98-107); Estimated Glomerular Filt Rate > 60.0 mL/min (>60); Globulin 3.9 g/dL (1.7-4.1); Glucose 157 mg/dL (80-110); HEMOLYSIS < 15 (0-50); Lipase 140 U/L (23-300); Potassium 3.6 mmol/L (3.4-5.1); Sodium 134 mmol/L (137-145); Total Protein 8.8 g/dL (6.3-8.2)
--- NOTE | 2020-04-20 10:29 | PC.NURSE ---
IV bolus infusing. Pt declined pain med/anti nausea meds at this time. Encouraged call light use for needs. Spouse present in room.
--- NOTE | 2020-04-20 10:38 | DI.CT.S_ITS ---
PROCEDURE: CT ABDOMEN PELVIS W CON INDICATIONS: generalized abdominal tenderness with N/V/D TECHNIQUE: After the administration of intravenous contrast, 5 mm thick sections acquired from the diaphragm to the symphysis. 5 mm coronal and sagittal reformats were acquired. For radiation dose reduction, the following was used: automated exposure control, adjustment of mA and/or kV according to patient size. COMPARISON: [facility], CT, ABDOMEN/PELVIS WITH CONTRAST, 09/05/2016, 9:36. FINDINGS: Image quality: Excellent. ABDOMEN: Lung bases: Lung bases are clear. Heart size is normal. Large hiatal hernia again noted. Solid organs: Liver is normal in size and enhancement. Gallbladder is unremarkable. Biliary system is non dilated. Pancreas enhances normally. Spleen is normal in size and enhancement. No adrenal nodules. Kidneys demonstrate normal size and enhancement, without hydronephrosis. Peritoneum and bowel: There is extensive sigmoid diverticulosis. There is diffuse wall thickening involving the sigmoid. There is inflammatory change adjacent to the sigmoid. A portion of the bladder that is immediately subjacent to the sigmoid as significant wall thickening, and there is stranding of fat between the sigmoid and the bladder. Nodes and vessels: No retroperitoneal or mesenteric adenopathy by size criteria. Aorta and inferior vena cava are normal in size. Miscellaneous: No ventral hernias. PELVIS: Genitourinary: Development of marked bladder wall thickening with tiny flecks of air present within the bladder. Miscellaneous: No inguinal hernias or adenopathy. Bones: No suspicious bony lesions. No vertebral body compression fractures. Extensive degenerative change in the lumbar spine with severe canal stenosis at L3-L4. IMPRESSION: 1. There is a diffuse inflammatory process involving the sigmoid. The sigmoid has numerous diverticuli. There is significant inflammatory change in the surrounding fat. Finding may potentially represent sigmoid diverticulitis. However, cannot exclude sigmoid colitis, including infectious and inflammatory etiologies. 2. Marked thickening of the lateral wall, and an asymmetric fashion, with flecks of air present within the bladder. Findings may potentially represent bacterial cystitis unrelated to the process involving the sigmoid. However, consider possible colovesicular fistula between the sigmoid and the bladder. 3. Incidental note is made of extensive degenerative change in the lumbar spine with severe canal stenosis at L3-L4. Dictated by: Alejandro Altamirano M.D. on 04/20/2020 at 11:17 Approved by: Alejandro Altamirano M.D. on 04/20/2020 at 11:25
[2020-04-20 11:23] LABS: PTT Partial Thromboplastin Tim 29 SECONDS (26.4-36.2); Prothrombin Time 11.6 SECONDS (10.1-12.7)
[2020-04-20] MEDS: CIPROFLOXACIN 400 MG/200 ML PIGGYBACK 200 MG IV (12:06)
[2020-04-20 13:01] VITALS: BP 154/75; PULSE 64; RESP 12; O2SAT 100
--- NOTE | 2020-04-20 13:07 | PC.NURSE ---
Pt reports abd/back pain and nausea have improved after NS bolus. Denies need for nausea/pain meds
[2020-04-20] MEDS: metroNIDAZOLE 500 MG/100 ML PIGGYBACK 100 MG IV (13:51)
[2020-04-20 14:27] VITALS: BP 139/69; PULSE 66; O2SAT 99
--- NOTE | 2020-05-15 12:29 | PC.NURSE ---
Flagyl IV finished and dc'd at 1520. 100ml's infused.
== END 2020-04-20 14:55 | disposition home or self-care (01) ==
PROVIDERS: Emergency Provider Emergency Medicine; Family Provider Family Medicine; PCP Family Medicine
DX: R10.84 Generalized abdominal pain (principal); N30.01 Acute cystitis with hematuria; K57.92 Diverticulitis of intestine, part unspecified, without perforation or abscess without bleeding; R19.7 Diarrhea, unspecified; R11.2 Nausea with vomiting, unspecified
CPT/HCPCS: 36415; 74177; 80053; 81003; 81015; 83690; 85025; 85610; 85730; 87086; 93005; 96361; 96365; 96366; 96367; 99284; J0744; Q9967

== ENCOUNTER 2020-09-12 12:34 | Emergency (ER) | payer OTHER, SELFPAY ==
[2020-09-12 12:38] VITALS: BP 143/84; PULSE 67; RESP 15; TEMP 37; O2SAT 97; BMI 32.9
--- NOTE | 2020-09-12 12:40 | DI.RAD.S_ITS ---
PROCEDURE: XR ANKLE RT MIN 3V INDICATIONS: rolled ankle, TECHNIQUE: 3 views of the ankle were acquired. COMPARISON: [facility], CR, XR ANKLE 3 VIEWS WEIGHT BEARING LEFT, 09/04/2020, 11:11. FINDINGS: Bones: Lateral malleolar fracture. Large plantar calcaneal spur. Scattered degenerative subchondral sclerosis and spurring. Soft tissues: Overlying soft tissue swelling IMPRESSION: Lateral malleolar fracture with overlying soft tissue swelling. Dictated by: Pedro Thakkar M.D. on 09/12/2020 at 13:07 Approved by: Pedro Thakkar M.D. on 09/12/2020 at 13:09
[2020-09-12 17:13] VITALS: PULSE 61; O2SAT 99
--- NOTE | 2020-09-12 17:14 | PC.NURSE ---
Was getting out of car and walking when her ankle rolled. Has been ambulatory with a cane since.
[2020-09-12 17:30] VITALS: PULSE 60; O2SAT 99
[2020-09-12] MEDS: ONDANSETRON 4 MG ODT SL (17:34)
[2020-09-12] MEDS: HYDROCODONE/ACET 5/325 TABLET 1 TAB PO (17:34)
[2020-09-12 18:10] VITALS: PULSE 70; O2SAT 96
[2020-09-12 18:11] VITALS: BP 171/99; PULSE 71; O2SAT 98
[2020-09-12 18:12] VITALS: BP 162/90; PULSE 63; O2SAT 98
--- NOTE | 2020-09-12 19:07 | ED_ITS ---
HPI - Extremity Injury (Lower) <AVANI Carty - Last Filed: 09/12/20 19:14> General Chief Complaint: Extremity Injury, Lower Stated Complaint: hurt ankle right Time Seen by Provider: 09/12/20 17:12 Source: patient Mode of arrival: Ambulatory Limitations: no limitations History of Present Illness HPI Narrative: The patient is a 70-year-old female former smoker who presents with a chief complaint of right ankle pain with her significant other. She states that she twisted to flower buncher or picker her purse and felt a crack in her right ankle last night. She has been ambulating on it since. She had used adit-qgy-qqobrob pain medications as well as ice prior. She states she has a history of left ankle injuries, but no history of right ankle injuries. She denies any falls, states that she just ?weeble wobbled. Related Data Home Medications Medication Instructions Recorded Confirmed gabapentin 300 mg PO SEEINSTR 06/03/18 03/10/20 paroxetine HCl 20 mg PO DAILY 06/03/18 03/10/20 trazodone 25 mg PO BEDTIME 06/03/18 03/10/20 Previous Rx's Medication Instructions Recorded oxycodone 5 mg PO Q4H PRN #42 tab 09/16/19 nitrofurantoin macrocrystal 100 mg PO BID #10 cap 03/10/20 promethazine 25 mg PO TID PRN #7 tab 03/10/20 ciprofloxacin HCl [Cipro] 500 mg PO BID #20 tab 04/20/20 hydrocodone-acetaminophen [[place]] 1 tab PO Q4-6H PRN #12 tab 04/20/20 metronidazole [Flagyl] 500 mg PO Q12H #20 tab 04/20/20 prochlorperazine maleate 10 mg PO Q6H PRN #20 tab 04/20/20 [Compazine] hydrocodone-acetaminophen 1 tab PO Q4-6H PRN #10 tab 09/12/20 Allergies Allergy/AdvReac Type Severity Reaction Status Date / Time Sulfa (Sulfonamide Allergy Severe CHILDHOOD Verified 09/12/20 12:38 Antibiotics) RX- [SULFA (SULFONAMIDE swelling, ANTIBIOTICS)] comatose Review of Systems <AVANI Carty - Last Filed: 09/12/20 19:14> Review of Systems Narrative: GENERAL: Denies chills, fatigue, malaise, fever, sweats. HEENT: Denies sinus pain, ear pain, sore throat, difficulty swallowing, dizziness. RESPIRATORY: Denies dyspnea, cough, wheezing, hemoptysis, sputum. CARDIOVASCULAR: Denies chest pain, palpitations, orthopnea, edema, GASTROINTESTINAL: Denies nausea, vomiting, abdominal pain, diarrhea, constipation, melena. : Denies dysuria, frequency, incontinence, hematuria, urinary retention. MUSCULOSKELETAL: See HPI SKIN: Denies rash, skin lesions, or other NEUROLOGIC: Denies weakness, headache, numbness, change in speech, confusion, seizures, incoordination. PSYCHIATRIC: No concerning psychosocial issues. 12 point review of systems is negative except for those stated above Patient History <AVANI Carty - Last Filed: 09/12/20 19:14> Medical History Ankle fracture (Acute ~2017) Arthritis (Acute) Depression (Acute) Diverticulitis (Acute) Diverticulosis (Acute) Osteoarthritis (Acute) Tingling (Acute) Surgical History History of arthroplasty of left knee (Acute ~2015) History of colonoscopy (Acute ~08/2019) S/P right unicompartmental knee replacement (Acute 06/15/18) Social History household members: significant other Smoking Status: Former smoker alcohol intake: current Smoking Status: Former smoker alcohol intake frequency: 0-2 drinks per day Substance Use Type: does not use Exam <AVANI Carty - Last Filed: 09/12/20 19:14> Narrative Exam Narrative: GENERAL: This is a well-nourished, well-developed patient, in no acute distress HEAD: Atraumatic. Normocephalic. No temporal or scalp tenderness. EYES: Pupils equal round and reactive. Extraocular motions intact. No scleral icterus. No injection or drainage. ENT: Nose without bleeding, purulent drainage or septal hematoma. Wearing a mask. Airway patent. NECK: Trachea midline. No JVD or lymphadenopathy. Supple, nontender, no meningeal signs. CARDIOVASCULAR: Regular rate and rhythm RESPIRATORY: No cough. No increased respiratory effort for no accessory muscle use EXTREMITIES: Ecchymosis noted lateral malleolus right ankle. Wiggling all toes right foot. Positive pedal pulses right foot. No pain to palpation right knee, no pain to palpation right tib-fib. Weight-bearing with with antalgic gait. BACK: Nontender without deformity or crepitance. No flank tenderness. NEURO: AOx3. SKIN: See extremity exam Initial Vital Signs Initial Vital Signs: Vital Signs Temperature 98.6 F 09/12/20 12:38 Pulse Rate 67 09/12/20 12:38 Respiratory Rate 15 09/12/20 12:38 Blood Pressure 143/84 H 09/12/20 12:38 Pulse Oximetry 97 09/12/20 12:38 <Matthew Green MD - Last Filed: 09/13/20 08:17> Initial Vital Signs Initial Vital Signs: Vital Signs Temperature 98.6 F 09/12/20 12:38 Pulse Rate 67 09/12/20 12:38 Respiratory Rate 15 09/12/20 12:38 Blood Pressure 143/84 H 09/12/20 12:38 Pulse Oximetry 97 09/12/20 12:38 Procedures <AVANI Carty - Last Filed: 09/12/20 19:14> Orthopedic Splinting/Casting Injury #1: Side: right Lower Extremity Injury Location: ankle Lower Extremity Immobilizer: boot orthosis Post splinting neuro exam: intact Post splinting vascular exam: intact Placed by: Nursing Scores <AVANI Carty - Last Filed: 09/12/20 19:14> GCS Elliston coma scale eye opening: Spontaneous Ell[place] coma scale verbal response: Orientated Paulino coma scale motor response: Obey commands Paulino coma scale total score: 15 Course <AVANI Carty - Last Filed: 09/12/20 19:14> Orders Ordered: Discontinued Medications Hydrocodone Bitart/Acetaminophen ([place] 5/325) 1 tab PO NOW ONE Stop: 09/12/20 17:26 Last Admin: 09/12/20 17:34 Dose: 1 tab Documented by: SHAKEEL Ondansetron HCl (Zofran Odt) 4 mg SL NOW ONE Stop: 09/12/20 17:26 Last Admin: 09/12/20 17:34 Dose: 4 mg Documented by: SHAKEEL Vital Signs Vital signs: Vital Signs - 8 hr 09/12/20 12:38 09/12/20 17:13 09/12/20 17:30 Temperature 98.6 F Pulse Rate 67 61 60 Respiratory Rate 15 Blood Pressure 143/84 H Pulse Oximetry 97 99 99 09/12/20 18:10 09/12/20 18:11 09/12/20 18:12 Temperature Pulse Rate 70 71 63 Respiratory Rate Blood Pressure 171/99 H 162/90 H Pulse Oximetry 96 98 98 <Matthew Green MD - Last Filed: 09/13/20 08:17> Orders Ordered: Discontinued Medications Hydrocodone Bitart/Acetaminophen ([place] 5/325) 1 tab PO NOW ONE Stop: 09/12/20 17:26 Last Admin: 09/12/20 17:34 Dose: 1 tab Documented by: SHAKEEL Ondansetron HCl (Zofran Odt) 4 mg SL NOW ONE Stop: 09/12/20 17:26 Last Admin: 09/12/20 17:34 Dose: 4 mg Documented by: SHAKEEL Vital Signs Vital signs: Vital Signs - 8 hr 09/12/20 12:38 09/12/20 17:13 09/12/20 17:30 Temperature 98.6 F Pulse Rate 67 61 60 Respiratory Rate 15 Blood Pressure 143/84 H Pulse Oximetry 97 99 99 09/12/20 18:10 09/12/20 18:11 09/12/20 18:12 Temperature Pulse Rate 70 71 63 Respiratory Rate Blood Pressure 171/99 H 162/90 H Pulse Oximetry 96 98 98 MDM - Extremity Injury (Lower) <AVANI Carty - Last Filed: 09/12/20 19:14> Imaging Data Extremity x-ray #1: Radiologist's Impression: [address] [place] [id number] XRay Report Signed Patient: Nikolas Castillo BMR#: [id number] : 1Acct:[id number] Age/Sex: 70 / FDate of Service: 09/12/20 Loc: ED Accession Number: [id number] Procedure: XR ankle RT min 3V Ordering Provider: Matthew Green MD PROCEDURE: XR ANKLE RT MIN 3V INDICATIONS: rolled ankle, TECHNIQUE: 3 views of the ankle were acquired. [facility] [place] ANKLE 3 VIEWS WEIGHT BEARING LEFT, 09/04/2020, 11:11. FINDINGS: Bones: Lateral malleolar fracture. Large plantar calcaneal spur. Scattered degenerative subchondral sclerosis and spurring. Soft tissues: Overlying soft tissue swelling IMPRESSION: Lateral malleolar fracture with overlying soft tissue swelling. Dictated by: Pedro Thakkar M.D. on 09/12/2020 at 13:07 Approved by: Pedro Thakkar M.D. on 09/12/2020 at 13:09 [facility] Narrative Medical decision making narrative: The patient is a 70-year-old female who presents with a chief complaint of ankle pain. She has a lateral malleolar fracture on x-ray. I spoke with Dr. Pierce from [facility], who states the patient can be weight-bearing as tolerated. She is placed in a boot orthosis and made weight-bearing as tolerated per his instructions. She has a walker at home. I discussed at length rest ice compression elevation as well as [id number] pain medications as needed and able, but did give patient a prescription of [place] for pain. Discussed at length the importance of follow-up with primary care provider as well as [facility]. Patient has no questions or concerns upon discharge and states understanding of return precautions of decreased circulation or acute concerns as well as follow-up care primary care provider as well as Orthopedics. Discharge Plan Departure Patient Disposition: Home Clinical Impression: Closed right malleolar fracture Qualifiers: Encounter type: initial encounter Qualified Code(s): S82.891A - Other fracture of right lower leg, initial encounter for closed fracture Discharge Date/Time: 09/12/20 18:29 Instructions: DI for Ankle Fracture, How To Perform RICE (Rest, Ice, Compress, Elevate), How to Use a Walking Boot Activity Restrictions/Additional Instructions: Thank you for trusting us with your care today. As discussed, you have fractured your right ankle. I spoke with Dr. Pierce from [facility]. You are welcome to follow up with them. You can weight bear as tolerated with your walking boot I suggest using your walker. Please use rest ice compression elevation. I [facility] a [facility] [place]. I have given you a prescription of a narcotic for pain. Be aware that this can be constipating and sedating. I encouraged taking with a stool softener, pushing fluids and fiber. Do not take and drive, operate heavy machinery, etc. Do not combine it with any other sedating substances such as alcohol. The combination of narcotics and alcohol and/or other sedatives can be lethal. Please come back to emergency department for any acute concerns such as decreased circulation to your foot. I also suggest follow-up with primary care provider. Prescriptions: New hydrocodone-acetaminophen 5-325 mg tablet 1 tab PO Q4-6H PRN (Reason: pain) Qty: 10 RF: 0 No Action trazodone 50 mg tablet 25 mg PO BEDTIME RF: 0 paroxetine HCl 20 mg tablet 20 mg PO DAILY RF: 0 gabapentin 300 mg capsule 300 mg PO SEEINSTR RF: 0 oxycodone 5 mg tablet 5 mg PO Q4H PRN (Reason: pain) Qty: 42 RF: 0 nitrofurantoin macrocrystal 100 mg capsule 100 mg PO BID Qty: 10 RF: 0 promethazine 25 mg tablet 25 mg PO TID PRN (Reason: nausea and vomiting) Qty: 7 RF: 0 prochlorperazine maleate [Compazine] 10 mg tablet 10 mg PO Q6H PRN (Reason: nausea and vomiting) Qty: 20 RF: 0 ciprofloxacin HCl [Cipro] 500 mg tablet 500 mg PO BID Qty: 20 RF: 0 metronidazole [Flagyl] 500 mg tablet 500 mg PO Q12H Qty: 20 RF: 0 hydrocodone-acetaminophen [[place]] 5-325 mg tablet 1 tab PO Q4-6H PRN (Reason: pain) Qty: 12 RF: 0 Referrals: [facility] [Provider Group] Julianna Ponce MD [Primary Care Provider] - <Matthew Green MD - Last Filed: 09/13/20 08:17> Cosign ED Attending Xinature Attestation: I was immediately available in the department for consultation. This documentation has been reviewed and I agree with assessment and plan. Supervised by Matthew Green MD
== END 2020-09-12 18:29 | disposition home or self-care (01) ==
PROVIDERS: Emergency Provider Nurse Practitioner Family; Family Provider Family Medicine; PCP Family Medicine
DX: S82.891A Other fracture of right lower leg, initial encounter for closed fracture (principal)
CPT/HCPCS: 73610; 99283

== ENCOUNTER → 2020-11-28 09:42 | Outpatient (CLI) | payer OTHER, SELFPAY ==
[2020-11-28 10:25] LABS: COVID19 -Nasal RAPID Negative (Negative)
== END ==
PROVIDERS: Family Provider Family Medicine; PCP Family Medicine; Visit Provider Nurse Practitioner Family
DX: Z20.822 Contact with and (suspected) exposure to COVID-19 (principal)
CPT/HCPCS: 87635; C9803

== ENCOUNTER 2020-11-30 06:08 | Day surgery (SDC) | payer OTHER, SELFPAY ==
[2020-11-30] VITALS (10 sets, daily range): BP systolic 110–149; BP diastolic 60–94; PULSE 70–86; RESP 12–17; TEMP 36.2–37.1; O2SAT 91–98; BMI 33.7
[2020-11-30] MEDS: LACTATED RINGERS 1,000 ML 42 ML IV ×2 (06:44→09:27)
--- NOTE | 2020-11-30 07:19 | PM.PREOP ---
Pre-operative Note COVID-19 COVID-19 status: Negative Result date/Date tested (Pos, Neg/Pending): 11/28/20 Interval Note History & Physical reviewed/Exam performed by Physician: Yes Changes to H&P: No
[2020-11-30] MEDS: MIDAZOLAM 2 MG/2 ML VIAL IV (07:46)
--- NOTE | 2020-11-30 07:53 | P.OP_ITS ---
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 Fusion navicular cuneiform joint CPT code 69588 left 2. ORIF distal fibula fracture nonunion left CPT code 09784 left- modifier 59 3. medialized and calcaneus osteotomy, left CPT code 98229- modifier 59 4. repair ankle lateral collateral ligaments secondary ATFL and CFL, left CPT code 37946 5. bone graft any donor site small or minor, dowel, calcaneus CPT code 60573 6. tendo-Achilles lengthening, left cpt 62443-85 Procedures performed with a 22 modifier for increased difficulty of procedure requiring multiple procedures including correction of the chronic fibula nonunion and the flatfoot as well as lateral ligamentous repair.Together these procedures took approximately twice as long as a standard ankle fracture. physician topographical field assistant Jethro was necessary for this procedure and utilized in positioning, retraction, holding for reduction and closure Same procedure as scheduled: Yes Indications: patient is a 70-year-old female with longstanding pes planus due to midfoot arthritis particularly with collapse through the naviculocuneiform joint. 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 She has failed conservative treatment. She has been indicated for surgical fixation. She also has hindfoot valgus and lateral ankle instability. Unclear if this is coming through the nonunion site or if there is a separate ligamentous instability. Plan will be a ORIF of the fibular nonunion, medial displacement calcaneal osteotomy, navicular cuneiform fusion and the gastrocs verses tendo Achilles lengthening and repair of other structures as indicated. Discussed to take some bone graft either from her calcaneus with exposure or iliac crest and also using donor bone graft. The risks benefits and alternatives of procedure were discussed with the patient in detail she would like to proceed. She was medically optimized. Surgeon: Lisette Remy Program Associate: Ryan Morelos Anesthesia Type: General, Peripheral nerve block and Local Operative Notes Findings: Severe arthritis midfoot with sag through the naviculocuneiform joint spurring and sclerosis. Examination on the table demonstrated in the Achilles contracture therefore percutaneous tendo-Achilles lengthening was selected. She also had significant hindfoot valgus pronation on standing exam. The but good motion through the subtalar joint. The medial displacement calcaneal osteotomy was completed with approximately 6 mm medial slide. Next the fibula nonunion was addressed. This was an obvious nonunion with gross motion and a fibrous nonunion. However was also found during the procedure that there was severe attenuation of the lateral ankle ligaments and in addition to the nonunion with a chronically torn ATFL and the very thin CFL ligament. These were repaired. The peroneal tendons were inspected and were intact. Closure Type: primary Specimen(s): none sent Applied: implant(s) ( small NC plate. 5.5 cannulated screw headless, MCDO- paragon 7.0 and 5.5 cannulated screw. fibula hook plate [id number]) Estimated Blood Loss (mL): 50 Blood products transfused: none Tourniquet time (min): 90 Procedure in detail: patient seen the preoperative area the site of surgery marked informed consent confirmed. The patient had a preoperative block with anesthesia team for postoperative pain control. Patient was brought back to the operating room placed supine on the operative table. A well-padded thigh tourniquet was placed. General anesthesia was administered. A thigh bump was placed. A Mitchell catheter was placed for the duration of the procedure. An SCD was placed on the contralateral lower extremity. The left lower extremities prepped and draped in the standard sterile fashion. A formal time-out procedure was performed confirming the patient's side and site of surgery administration of appropriate preoperative antibiotics. All were in agreement. Attention was turned to the lateral aspect of the left leg. Incision is for the calcaneal osteotomy were marked out on the foot. A examination under anesthesia of the left foot was completed there was dorsiflexion to approximately 0? with the knee extended this does not change significantly with knee flexion therefore decision for a tendo-Achilles lengthening was made. Tendo-Achilles lengthening. Prior to tourniquet elevation the foot was held in dorsiflexion and 3 small incisions were made along the Achilles tendon for a triple quinn section technique lengthening the distal and proximal ones were 50% to the lateral side and then 0 150% to the medial side. Once this was completed the foot was maximally dorsiflexed with a good stretch increased dorsiflexion to approximately 20?. Next the Esmarch was used for exsanguination the tourniquet elevated on the thigh to 250 mm of mercury. This stayed for approximately 90 minutes and was let down Approximately 20 minutes for closure of the latter side and repeat positioning and then reality and for the medial side for another 70 minutes. medial displacement calcaneal osteotomy. A trajectory for the medial displacement calcaneal osteotomy was marked on the skin with fluoroscopic guidance. Incision was made down through the skin subcutaneous tissues down to the periosteum. Bovie was used to elevate the periosteum along with elevators. A guidewire was placed across the calcaneus and fluoroscopy was checked and lateral and axial views confirming trajectory. Then the large was used to make the osteotomy. This was slid medially approximately [address] in [address]. X-rays were taken and this was adequate mobilization therefore this was stabilized with 2 of the paragon screws a 7 0 headed screw and a 5 headed screw. small bone autograft: next to the same incision the calcaneus a 8 gauge jamshidi needle was utilized to a obtain a dowel of bone autograft this was placed in a sterile cup. once this was completed wound was closed in layered fashion left fibula nonunion. Next a separate incision was made laterally over the distal fibula was taken down through the skin to the periosteum the site of the nonunion at the distal fibula below the level of syndesmosis was identified. This was a fibrous nonunion was easily mobilized using the rongeur. The nonunion was distracted using the K-wire distractor and the fibrous nonunion material removed. The bone was drilled using the fenestrated drill a to bleeding cancellous bone. The calcaneal autograft was then placed in the area and the fracture was reduced. It was noted during this exposure that the lateral ankle ligaments were incompetent as well as of motion through the nonunion site. The fibular nonunion was repaired with a 6 hole left fibular hook plate. The hooks were placed at the distal bone this was tamped in place followed by a a nonlocking screw in the oblong hole for compression. Then locking and nonlocking screws were placed. At this securely fixed of the fracture anatomically. However again as noted before due to the incompetent lateral ligaments there was still a positive talar tilt Greater than 10? on stress testing decision was made for lateral ligament repair take instability. lateral ligament repair/ Brostrom: 0 Ethibond this suture was used in a horizontal mattress fashion through the ATFL and repaired through drill holes into the distal fibula and tied over a bone bridge in dorsiflexion eversion reducing the anterior drawer. There is additional talar tilt therefore the peroneal sheath was opened the peroneal tendons were retracted and the CFL was exposed. This was highly attenuated. A separate 0 Ethibond was run through the additional drill holes in the fibula and then in a horizontal mattress fashion through the CFL repairing the as CFL ligaments. Once this was tied down and complete the ankle was restress under exam and this markedly improved the ankle stability with no significant residual talar tilt. next the tourniquet was released hemostasis was achieved in the wound was closed in layered fashion with 2-0 Vicryl 4-0 Monocryl and 3-0 nylon. Attention was turned to the medial side of the leg. After 20 minutes the Esmarch was used and the tourniquet reinflated to 250 mm of mercury. A medial incision along the navicular cuneiform joint was made extending from the talonavicular joint to the 1st tarsometatarsal joint. At this was marked and confirmed on fluoroscopy prior to incision. Incision was taken down the skin and subcutaneous tissues. This was done in the standard and medial approach between the tibialis anterior and tibialis posterior. Tibialis anterior was mobilized distally with a Kevin retractor. The medial border of the navicula and cuneiform bones was exposed the arthritic joint was opened and rongeured. There was virtually no remaining cartilage and there were large bone spurs dorsally. The K-wire retractor was used to distract the joint. The rongeur and osteotomes and power rasp were used to debride the articular surfaces. Then the fenestrated drill was used after irrigation. Cancellous bone chips were placed in the fusion site and the fusion was reduced and pin. We did try to take some more plantar bone to help reduce the pes planus deformity and the alignment was checked on multiplanar fluoroscopy. Once this was done the medial navicular cuneiform of plate template was fit to the bone a small was selected. The pre reaming was completed. Next the definitive small plate was placed using the guide a 5.5 separate at headless cannulated screw was placed across the navicular cuneiform joint from distal to proximal providing excellent comp ression. Next the small plate was fixed to the bone. There was some difficulty getting trajectory of the 3.5 screw from the reamed hole into the intermediate cuneiform and due to the way the guide fit in the hole but this did direct nicely into the medial cuneiform as so this was taken. Additional locking screws were placed in the plate and distally a locking screw was placed from the medial cuneiform across the middle cuneiform as well for additional fixation. Final x-rays were taken confirming appropriate alignment and plate placement. There was improved alignment of the foot. The tourniquet was released the wound was irrigated and hemostasis was achieved and the wound was closed in a layered fashion with 2-0 Vicryl for 4 0 Monocryl and 3-0 nylon and 4-0 nylon. A sterile dressing was placed with Webril gauze Xeroform bulky Leone dressing and a posterior and U splint. The patient was woken from anesthesia and taken recovery room in good condition. There no immediate complications from this procedure. Complications: none Post-operative Condition: stable Disposition: PACU Plan for aftercare: nonweightbearing or toe-touch for balance on the left lower extremity. Elevate above the heart level for least 2 weeks after surgery to help with wound healing. Will start aspirin 325 mg postop day 1 for DVT prophylaxis. Oxycodone for pain. Has home gabapentin.
[2020-11-30] MEDS: CEFAZOLIN 2 GM/100 ML FROZ.PIGGY IV ×2 (08:00→11:46)
--- NOTE | 2020-11-30 08:00 | DI.RAD.S_ITS ---
PROCEDURE: XR ANKLE LT MIN 3V INDICATIONS: FOOT ANKLE REPAIR TECHNIQUE: 3 views of the ankle were acquired. COMPARISON: [facility], [facility], XR ANKLE RT MIN 3V, 09/12/2020, 12:44. FINDINGS: Bones: No fractures or dislocations. Lateral fixation plate at the distal fibula, 2 axial calcaneal fixation screws extend posterior-anterior presumably associated with treatment with osteotomy. Fusion plate and screws are present medially, in the navicular-talus region medially. Ankle mortise is normally aligned. No suspicious bony lesions. Soft tissues: No tibiotalar joint effusion. Achilles tendon appears normal. IMPRESSION: Podiatry related findings as discussed, operative fixation as noted. No operative complication identified. Dictated by: Arie Roblero M.D. on 11/30/2020 at 14:58 Approved by: Arie Roblero M.D. on 11/30/2020 at 15:00
--- NOTE | 2020-11-30 08:08 | SUR.PREOP ---
Block start time [0743] . Monitoring initiated and maintained throughout procedure. Oxygen and medications given per anesthesiologist instructions. Patient remained stable throughout procedure, no adverse reactions noted. Block end time [0757 ].
--- NOTE | 2020-11-30 08:35 | SUR.OPER ---
Supine on padded OR bed, head on pillow, arms secured on padded arm boards at <90 degrees abduction, legs uncrossed, safety belt at torso, tape over blanket over right lower leg. Bump under left hip and left leg. Left leg in control of the surgeon.
--- NOTE | 2020-11-30 08:38 | PM.PROC.1 ---
Procedures Date/Time Date of procedure: 11/30/20 Time of procedure: 07:45 Nerve Block Time out performed: Yes Local anesthetic used: other (5mL 2% Lidocaine, 15mL 0.5% Ropivacaine) Location of anesthetic used: lateral popliteal Amount of anesthesia used (mL): 20 Nerve blocks: other (sciatic nerve) Procedure successful: Yes Patient tolerated procedure: well Complications: none Additional comments: LEFT Ultrasound guided lateral popliteal sciatic nerve block for post operative pain management, as discussed with surgeon. Risks, benefits discussed with patient and spouse. Consent verified. Site marked by surgeon. Time out performed. Standard ASA monitors applied, NC O2, 2mg versed. Pt supine. Chloroprep. Sterile US sleeve and gel. Sciatic nerve identified proximal to popliteal fossa, at bifurcation. Lidocaine local skin wheal. 100mm x 21g Pajunk needle advanced with in-plane US guidance to nerve. Negative aspiration. 5mL 2% lidocaine and 15mL 0.5% ropivacaine injected with intermittent negative aspiration. Good LA spread noted on US. No pain, no paresthesias. VSS. Tolerated well. Unable to document US image due to machine malfunction.
--- NOTE | 2020-11-30 08:40 | P.PCN_ITS ---
Procedures Date/Time Date of procedure: 11/30/20 Time of procedure: 07:50 Nerve Block Time out performed: Yes Local anesthetic used: lidocaine 1% (w/ epi 5mL + 15mL 0.5opivacaine) Location of anesthetic used: adductor canal Amount of anesthesia used (mL): 20 Nerve blocks: femoral (adductor canal) Procedure successful: Yes Patient tolerated procedure: well Complications: none Additional comments: LEFT Adductor canal block for post operative pain management. R/B discussed. Site marked. Consent verified/signed. Standard ASA monitors. NC O2. Chloroprep. Sterile technique. Femoral A/V/N identified medial mid thigh with US. Lidocaine skin wheal. 100mm x 21g Pajunk needle advanced with in-plane US guidance. Negative aspiration. LA injected medial and lateral to femoral artery. Negative aspiration throughout. No pain, no paresthesia with injection. VSS. Tolerated well. Unable to document US image due to machine malfunction. To OR.
[2020-11-30] MEDS: OXYCODONE IR 5 MG TABLET PO ×2 (12:32→13:20)
== END 2020-11-30 13:39 | disposition home or self-care (01) ==
PROVIDERS: Family Provider Family Medicine; PCP Family Medicine; Referring Provider Orthopaedic Surgery Foot and Ankle Surgery; Visit Provider Orthopaedic Surgery Foot and Ankle Surgery
PROC: (CPT 28740; principal; 2020-11-30 07:45)
PROC: (CPT 27685; 2020-11-30 07:45)
PROC: (CPT 27870; 2020-11-30 07:45)
DX: M21.42 Flat foot [pes planus] (acquired), left foot (principal); S82.832K Other fracture of upper and lower end of left fibula, subsequent encounter for closed fracture with nonunion; M67.02 Short Achilles tendon (acquired), left ankle; M19.072 Primary osteoarthritis, left ankle and foot; M25.372 Other instability, left ankle
CPT/HCPCS: 28740; 27792; 27698; 27685; 28300; 20900; 64450; 73610; 76000; J0690; J1100; J2250; J2405; J2704; J3010

== ENCOUNTER 2020-12-01 11:30 | Emergency (ER) | payer OTHER, SELFPAY ==
[2020-12-01 11:40] VITALS: BP 134/60; PULSE 71; RESP 18; TEMP 36.7; O2SAT 96; BMI 34.4
[2020-12-01 11:47] VITALS: PULSE 78
--- NOTE | 2020-12-01 11:49 | PC.NURSE ---
Pt had surgery yesterday w/ Dr. Remy. Arrives w/ blood coming through bandage / splint (posterior w/ sugar tong w/ padding. W/ INFORMATION TECHNOLOGY ADMINISTRATOR, removed padding, opened splint to observe skin. Significant blood on padding (soaked). No active bleeding noted from surgical sites. Sutures appear to be intact. Pt states that she has been putting weight on surgical area when she goes up 3 steps to get into house. Has walker and scooter for inside of house. Noted strike through this am. Brisk cap refill in toes. Pain is not controlled at this time. INFORMATION TECHNOLOGY ADMINISTRATOR ordering additional medication.
[2020-12-01] MEDS: OXYCODONE/ACETAMINOPHEN 5/325 TABLET 1 TAB PO (11:50)
--- NOTE | 2020-12-01 11:51 | ED_ITS ---
HPI - Extremity Problem <JACQUELINE García - Last Filed: 12/01/20 13:24> General Chief complaint: Extremity Problem,Nontraumatic Stated complaint: Surgery Yesterday On Lt Ankle, Bleeding Time Seen by Provider: 12/01/20 11:33 Source: patient Mode of arrival: Wheelchair Limitations: no limitations History of Present Illness HPI Narrative: 70yo female presents emergency department for postop bleeding. She had an extensive operation to left foot that involved ORIF of distal fibula nonunion, fusion of the navicular bone, bone grafts, and tendo-achilles lengthening. Patient was instructed to be nonweightbearing on foot. However, she said that she has to place some weight on her foot when using the 2 steps up to her house and occasionally when transferring. Patient noticed last night that there was some bleeding. When patient woke up this morning she noticed the bleeding came through the cast. She states she has been taking 1 oxycodone every 6 hours, states last dose was approximately at 0900. Patient denies any numbness, tingling, severe pain, increased pressure, fevers, nausea, vomiting, diarrhea, or any other concerns. Related Data Home Medications Medication Instructions Recorded Confirmed gabapentin 300 mg PO SEEINSTR 06/03/18 11/30/20 paroxetine HCl 20 mg PO DAILY 06/03/18 11/30/20 trazodone 25 mg PO BEDTIME 06/03/18 11/30/20 diclofenac potassium 11/28/20 escitalopram oxalate 5 mg PO DAILY 11/28/20 11/30/20 omeprazole 20 mg PO DAILY 11/28/20 11/30/20 Previous Rx's Medication Instructions Recorded nitrofurantoin macrocrystal 100 mg PO BID #10 cap 03/10/20 oxycodone 5 - 10 mg PO Q4H PRN #50 tab 11/30/20 promethazine 12.5 mg PO TID PRN #7 tab 11/30/20 Allergies Allergy/AdvReac Type Severity Reaction Status Date / Time Sulfa (Sulfonamide Allergy Severe CHILDHOOD Verified 12/01/20 11:40 Antibiotics) RX- [SULFA (SULFONAMIDE swelling, ANTIBIOTICS)] comatose Review of Systems <JACQUELINE García - Last Filed: 12/01/20 13:24> Review of Systems Narrative: REVIEW OF SYSTEMS: GENERAL: Denies fever. HENT: No head trauma. CARDIOVASCULAR: No chest pain. RESPIRATORY: No shortness of breath or cough. GASTROINTESTINAL: No nausea or vomiting. MUSCULOSKELETAL: Complains of left lower extremity bleeding from cast, see HPI. INTEGUMENTARY: No rash. NEURO: No numbness, tingling. 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 HENT: Normocephalic, atraumatic. EYES: Symmetrical, sclera white, no periorbital swelling. RESPIRATORY: Normal respiratory rate, trachea midline, airway patent. No stridor, nasal flaring or accessory muscle use. MUSCULOSKELETAL: Blood noted through plaster cast, bandages removed. All incisions are intact without bleeding, sutures remain intact. Ecchymosis and swelling noted. No significant erythema or purulent drainage. Patient able to wiggle toes without any difficulty. Cast was replaced per instruction of ortho, CMS remains intact pre and post splint application. EXTREMITIES: CMS intact. Pedal pulses 2+ and equal bilaterally. SKIN: Warm, dry, soft, appropriate color for ethnicity. No lesions, rashes, or wounds. NEURO: Alert and Oriented X 3. PSYCH: Appropriate affect and mood. <Vel Rahman DO - Last Filed: 12/01/20 14:28> Initial Vital Signs Initial Vital Signs: Vital Signs Temperature 98.1 F 12/01/20 11:40 Pulse Rate 71 12/01/20 11:40 Respiratory Rate 18 12/01/20 11:40 Blood Pressure 134/60 12/01/20 11:40 Pulse Oximetry 96 12/01/20 11:40 Procedures <JACQUELINE García - Last Filed: 12/01/20 13:24> Orthopedic Splinting/Casting Injury #1: Side: left Lower Extremity Injury Location: upper leg Lower Extremity Immobilizer: posterior splint and stirrup splint Post splinting neuro exam: intact Post splinting vascular exam: intact Placed by: Nursing Additional Comments: Xeroform applied to sutures, significant padding placed over foot and on heel. Stirrup and short leg splint placed. Steve bandages applied. This was done by nursing. I inspected splint post application, CMS intact. Significant padding noted. Patient noted that splint was comfortable. Ankle at 90?. Course <JACQUELINE García - Last Filed: 12/01/20 13:24> Course Course Narrative: 1200: I spoke with Dr. Pierce, orthopedic sergeant of corrections, discussed patient's history and bleeding. Discussed incisions are not currently bleeding at this time, they look well approximated, sutures intact. He suggested replacing padding cast, encouraging nonweightbearing. Orders Ordered: Discontinued Medications Oxycodone/Acetaminophen (Oxycodone/Acetaminophen 5/325 Tablet) 1 tab PO NOW ONE Stop: 12/01/20 11:46 Last Admin: 12/01/20 11:50 Dose: 1 tab Documented by: ROMULO Vital Signs Vital signs: Vital Signs - 8 hr 12/01/20 11:40 12/01/20 11:47 12/01/20 12:50 Temperature 98.1 F Pulse Rate 71 63 Pulse Rate [Left Dorsalis Pedis] 78 Respiratory Rate 18 18 Blood Pressure 134/60 112/57 L Pulse Oximetry 96 99 <Vel Rahman DO - Last Filed: 12/01/20 14:28> Orders Ordered: Discontinued Medications Oxycodone/Acetaminophen (Oxycodone/Acetaminophen 5/325 Tablet) 1 tab PO NOW ONE Stop: 12/01/20 11:46 Last Admin: 12/01/20 11:50 Dose: 1 tab Documented by: ROMULO Vital Signs Vital signs: Vital Signs - 8 hr 12/01/20 11:40 12/01/20 11:47 12/01/20 12:50 Temperature 98.1 F Pulse Rate 71 63 Pulse Rate [Left Dorsalis Pedis] 78 Respiratory Rate 18 18 Blood Pressure 134/60 112/57 L Pulse Oximetry 96 99 MDM - Extremity (Nontraumatic) <JACQUELINE García - Last Filed: 12/01/20 13:24> Medical Records Attestation: I reviewed the patient's medical records. Lab Data Attestation: I reviewed the patient's lab results. MDM Narrative Medical decision making narrative: 70-year-old female presenting with postoperative bleeding from surgery in her left lower extremity yesterday. Cast was removed wound was undressed, revealed no active bleeding, sutures remained intact. No wound dehiscence. CMS intact. No significant swelling. No significant pain. Less concern for infection, no erythema, no tachycardia, patient well-appearing. Less concern for compartment syndrome due to lack of significant swelling or significant pain. A consulted with orthopedic on-call, Dr. Pierce, discussed re-dressing splint and bandage. Dressing placed significant bulky dressing and splint. Patient was encouraged to call Ortho on Thursday to update them that she was in emergency department and discussed follow-up. Return precautions given for new or worsening symptoms, she agreed to plan of care verbalized understanding. Discharge Plan Departure Patient Disposition: Home Clinical Impression: Postoperative bleeding from incision Activity Restrictions/Additional Instructions: Thank you for entrusting me with your care today. As discussed, I spoke with orthopedic on-call, Dr. Pierce. We have replaced your cast. Please, do not put any weight on your foot. This is very important for healing. Please call the Orthopedics office on Thursday and update them that you have been in the emergency department. Schedule an appointment if needed. Return emergency department for any new or worsen symptoms including severe pain, excessive bleeding, excessive swelling, color change in toes, or any other concerns. Prescriptions: No Action trazodone 50 mg tablet 25 mg PO BEDTIME RF: 0 paroxetine HCl 20 mg tablet 20 mg PO DAILY RF: 0 gabapentin 300 mg capsule 300 mg PO SEEINSTR RF: 0 nitrofurantoin macrocrystal 100 mg capsule 100 mg PO BID Qty: 10 RF: 0 escitalopram oxalate 5 mg Tablet 5 mg PO DAILY RF: 0 omeprazole 20 mg Tablet,Delayed Release (Dr/Ec) 20 mg PO DAILY RF: 0 diclofenac potassium RF: 0 oxycodone 5 mg tablet 5 - 10 mg PO Q4H PRN (Reason: pain) Qty: 50 RF: 0 promethazine 12.5 mg tablet 12.5 mg PO TID PRN (Reason: nausea and vomiting) Qty: 7 RF: 0 Referrals: Julianna Ponce MD [Primary Care Provider] - <Vel Rahman DO - Last Filed: 12/01/20 14:28> [facility] Dr Rahman Co-Sign Statement: I was available for consultation during this patient's emergency department visit. This chart is signed by myself for administrative purposes only. I did not have direct contact with this patient during this visit. They were seen independently by the APC.
[2020-12-01 12:50] VITALS: BP 112/57; PULSE 63; RESP 18; O2SAT 99
--- NOTE | 2020-12-01 12:50 | PC.NURSE ---
Dressing with padding, kerlix, ABD and xeroform over incisions. posterior and sugar tong placed, Checked by Dilma Hackett DNP.
== END 2020-12-01 12:53 | disposition home or self-care (01) ==
PROVIDERS: Emergency Provider Nurse Practitioner; Family Provider Family Medicine; PCP Family Medicine
DX: L76.22 Postprocedural hemorrhage of skin and subcutaneous tissue following other procedure (principal)
CPT/HCPCS: 99281; 99283

== ENCOUNTER 2022-05-26 11:07 | Emergency (ER) | payer OTHER, SELFPAY ==
[2022-05-26 11:25] VITALS: BP 155/99; PULSE 79; RESP 18; TEMP 36.6; O2SAT 99; BMI 36.9
--- NOTE | 2022-05-26 11:41 | DI.RAD.S_ITS ---
PROCEDURE: XR FOOT LT MIN 3V INDICATIONS: Trip and fall, pain to base of L 1st toe TECHNIQUE: 3 views of the foot were acquired. COMPARISON: [facility], CR, XR FOOT 3 VIEWS WEIGHT BEARING LEFT, 11/21/2021, 10:04. FINDINGS: Bones: Diffuse osteopenia. Stable postsurgical changes from arthrodesis across the left midfoot with medial plate and screw fixation across the medial and mid cuneiform and navicular bones. No evidence for hardware failure or loosening. Stable postsurgical changes of the distal left fibula and calcaneus. No evidence for hardware loosening or failure. Acute minimally displaced fracture involving the base of the left great toe proximal phalanx with intra-articular extension. Age-indeterminate but likely acute to subacute fractures involving the head of the left 3rd through 5th metatarsals. Prominent plantar calcaneal enthesophyte. Moderate degenerative changes of the dorsal left midfoot and hindfoot. Soft tissues: No tibiotalar joint effusion. Achilles tendon appears normal. IMPRESSION: 1. Acute, mildly displaced fracture involving the base of the left great toe proximal phalanx with intra-articular extension. 2. Age-indeterminate, but likely acute to subacute fractures involving the head of the left 3rd through 5th metatarsal. Overlying soft tissue edema. 3. Stable postsurgical changes from arthrodesis of the medial left midfoot, distal fibula, and calcaneus. No evidence for hardware complication. 4. Moderate degenerative changes of the left mid and hindfoot. 5. Diffuse osteopenia. Dictated by: Pa Gallardo M.D. on 05/26/2022 at 13:03 Approved by: Pa Gallardo M.D. on 05/26/2022 at 13:08
--- NOTE | 2022-05-26 11:41 | DI.RAD.S_ITS ---
PROCEDURE: XR KNEE LT 3V INDICATIONS: Trip and fall. Hx of L TKR TECHNIQUE: 3 views of the knee were acquired. COMPARISON: [facility], , KNEE 1-2 VIEWS LEFT, 10/10/2016, 12:30. FINDINGS: Bones: No acute fractures or dislocations. No suspicious bony lesions. Stable postsurgical changes and alignment of left total knee arthroplasty. No evidence for hardware loosening or failure. Soft tissues: No substantial joint effusion. No suspicious soft tissue calcifications. Anterior left knee soft tissue swelling. IMPRESSION: Anterior left knee soft tissue swelling without underlying fracture or dislocation. Stable postsurgical changes and alignment of left total knee arthroplasty without evidence for hardware complication. Dictated by: Pa Gallardo M.D. on 05/26/2022 at 13:01 Approved by: Pa Gallardo M.D. on 05/26/2022 at 13:03
--- NOTE | 2022-05-26 13:50 | ED_ITS ---
HPI - Extremity Injury (Lower) <Shirley Mahajan, [facility] - Last Filed: 05/26/22 15:07> General Chief Complaint: Extremity Injury, Lower Stated Complaint: fell thursday lt knee & foot swollen Time Seen by Provider: 05/26/22 12:52 Source: patient and family Mode of arrival: Wheelchair History of Present Illness HPI Narrative: This is a 72-year-old female who presents to the emergency department complaining of left foot and left knee pain after tripping two days ago and falling down onto her left knee and foot. Patient reports that she has history of a left total knee replacement and surgery in her left ankle. She endorses a left foot injury in the past as well. Patient complains of bruising and swelling of her left knee, pain in her left foot primarily the great toe with an abrasion on the top of it. Patient denies any head injury, weakness, sensation changes distally. She states that she can bear weight on her left foot but it is quite painful. She denies any changes to range of motion or strength, states that when she tripped and fell on left knee, it did not go in any wrong direction it just impacted the ground. Patient reports that Dr. Manuel has previously operated on her left foot, and Dr. Ny completed her left total knee replacement. Related Data Home Medications Medication Instructions Recorded Confirmed gabapentin 300 mg capsule 300 mg PO SEEINSTR 06/03/18 11/30/20 paroxetine HCl 20 mg tablet 20 mg PO DAILY 06/03/18 11/30/20 trazodone 50 mg tablet 25 mg PO BEDTIME 06/03/18 11/30/20 diclofenac potassium 11/28/20 escitalopram oxalate 5 mg tablet 5 mg PO DAILY 11/28/20 11/30/20 omeprazole 20 mg tablet,delayed 20 mg PO DAILY 11/28/20 11/30/20 release Previous Rx's Medication Instructions Recorded nitrofurantoin macrocrystal 100 mg 100 mg PO BID #10 caps 03/10/20 capsule oxycodone 5 mg tablet 5 - 10 mg PO Q4H PRN pain #50 tabs 11/30/20 promethazine 12.5 mg tablet 12.5 mg PO TID PRN nausea and 11/30/20 vomiting #7 tabs diclofenac sodium 1 % topical gel 2 g topical QID #100 grams 05/26/22 hydrocodone 5 mg-acetaminophen 325 1 tab PO BID PRN pain #14 tabs 05/26/22 mg tablet Allergies Allergy/AdvReac Type Severity Reaction Status Date / Time Sulfa (Sulfonamide Allergy Severe CHILDHOOD Verified 05/26/22 11:40 Antibiotics) RX- [SULFA (SULFONAMIDE swelling, ANTIBIOTICS)] comatose Review of Systems <JACQUELINE Salguero - Last Filed: 05/26/22 15:07> Review of Systems Narrative: General: denies fever, chills Head/Neck: denies headache, neck pain Eyes: denies visual changes, eye pain Cardio: denies chest pain, palpitations Respiratory: denies shortness of breath, cough MSK: denies new joint pain, muscle weakness or swelling Skin: denies rash, itching or wound Neuro: denies numbness, tingling, dizziness Patient History <JACQUELINE Salguero - Last Filed: 05/26/22 15:07> Medical History Ankle fracture (~2017) Arthritis Arthritis of foot, left Closed torus fracture of distal end of left fibula Closed torus fracture of distal end of right fibula with routine healing Depression Diverticulitis Diverticulosis Former smoker Osteoarthritis Pes planus Tingling Surgical History History of arthroplasty of left knee (~2015) History of colonoscopy (~08/2019) 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 General: cooperative, comfortable, in no acute distress, well groomed Head: atraumatic, symmetrical facial expressions Neck: supple Eyes: equal round and reactive, EOMI, conjunctiva normal Nose: nares patent, no rhinorrhea Mouth/Throat: moist mucus membranes Cardiovascular: regular rate and rhythm, no peripheral edema, warm extremities MSK: moves all extremities, neurovascularly intact, no weakness, normal tone, left knee is ecchymotic, edematous, her range of motion is intact without deficit, left forefoot with abrasions and ecchymosis along her great toe and nearby toes, great toe with an abrasion on the dorsum, no plantar ecchymosis, no tenderness to ATFL, medial or lateral malleoli, proximal 5th metatarsal other, no tenderness along her 1st metatarsal but tenderness over her proximal phalanx, MCP joint, and no tenderness along other metatarsals. Skin: brisk capillary refill, no rash Neuro: normal speech and cognition, A&O x3 Psych: mental status is grossly normal, congruent mood, normal affect, pleasant and cooperative Initial Vital Signs Initial Vital Signs: Vital Signs Temperature 97.9 F 05/26/22 11:25 Pulse Rate 79 05/26/22 11:25 Respiratory Rate 18 05/26/22 11:25 Blood Pressure 155/99 H 05/26/22 11:25 Pulse Oximetry 99 05/26/22 11:25 Oxygen Delivery Method 05/26/22 11:25 <Julieta Mckay DO - Last Filed: 05/28/22 07:11> Initial Vital Signs Initial Vital Signs: Vital Signs Temperature 97.9 F 05/26/22 11:25 Pulse Rate 79 05/26/22 11:25 Respiratory Rate 18 05/26/22 11:25 Blood Pressure 155/99 H 05/26/22 11:25 Pulse Oximetry 99 05/26/22 11:25 Oxygen Delivery Method 05/26/22 11:25 Procedures <JACQUELINE Salguero - Last Filed: 05/26/22 15:07> Orthopedic Splinting/Casting Injury #1: Side: left Lower Extremity Injury Location: foot Lower Extremity Immobilizer: post-op shoe Other Orthopedic Equipment: crutches Post splinting neuro exam: intact Post splinting vascular exam: intact Placed by: Nursing Course <JACQUELINE Salguero - Last Filed: 05/26/22 15:07> Orders Ordered: Discontinued Medications Hydrocodone Bitart/Acetaminophen (Hydrocodone/Acet 5/325 Tablet) 1 tab PO NOW ONE Stop: 05/26/22 13:29 Last Admin: 05/26/22 13:59 Dose: 1 tab Documented By: AMU Ibuprofen (Ibuprofen 400 Mg Tablet) 600 mg PO NOW ONE Stop: 05/26/22 13:29 Last Admin: 05/26/22 13:59 Dose: 600 mg Documented By: AMU Vital Signs Vital signs: Vital Signs - 8 hr 05/26/22 11:25 Temperature 97.9 F Pulse Rate 79 Respiratory Rate 18 Blood Pressure 155/99 H Pulse Oximetry 99 Oxygen Delivery Method Room Air <Julieta Mckay DO - Last Filed: 05/28/22 07:11> Orders Ordered: Discontinued Medications Hydrocodone Bitart/Acetaminophen (Hydrocodone/Acet 5/325 Tablet) 1 tab PO NOW ONE Stop: 05/26/22 13:29 Last Admin: 05/26/22 13:59 Dose: 1 tab Documented By: AMU Ibuprofen (Ibuprofen 400 Mg Tablet) 600 mg PO NOW ONE Stop: 05/26/22 13:29 Last Admin: 05/26/22 13:59 Dose: 600 mg Documented By: AMU Vital Signs Vital signs: Vital Signs - 8 hr 05/26/22 11:25 Temperature 97.9 F Pulse Rate 79 Respiratory Rate 18 Blood Pressure 155/99 H Pulse Oximetry 99 Oxygen Delivery Method Room Air MDM - Extremity Injury (Lower) <Shirley Mahajan [facility] - Last Filed: 05/26/22 15:07> Imaging Data Extremity x-ray #1: Radiologist's Impression: PROCEDURE:? XR KNEE LT 3V ? INDICATIONS:? Trip and fall. Hx of L TKR ? TECHNIQUE:? 3 views of the knee were acquired.? ? COMPARISON:? [facility], , KNEE 1-2 VIEWS LEFT, 10/10/2016, 12:30. ? FINDINGS:? ? Bones:? No acute fractures or dislocations.? No suspicious bony lesions.? Stable postsurgical changes and alignment of left total knee arthroplasty.? No evidence for hardware loosening or failure. ? Soft tissues:? No substantial joint effusion.? No suspicious soft tissue calcifications.? Anterior left knee soft tissue swelling. ? ? IMPRESSION:? Anterior left knee soft tissue swelling without underlying fracture or dislocation.? Stable postsurgical changes and alignment of left total knee arthroplasty without evidence for hardware complication. ? ? Dictated by: Pa Gallardo M.D. on 05/26/2022 at 13:01 ? ? Approved by: Pa Gallardo M.D. on 05/26/2022 at 13:03 ? Extremity x-ray #2: Radiologist's Impression: PROCEDURE:? XR FOOT LT MIN 3V ? INDICATIONS:? Trip and fall, pain to base of L 1st toe ? TECHNIQUE:? 3 views of the foot were acquired.? ? COMPARISON:? [facility], CR, XR FOOT 3 VIEWS WEIGHT BEARING LEFT, 11/21/2021, 10:04. ? FINDINGS:? ? Bones:? Diffuse osteopenia.? Stable postsurgical changes from arthrodesis across the left midfoot with medial plate and screw fixation across the medial and mid cuneiform and navicular bones.? No evidence for hardware failure or loosening.? Stable postsurgical changes of the distal left fibula and calcaneus.? No evidence for hardware loosening or failure.? Acute minimally displaced fracture involving the base of the left great toe proximal phalanx with intra-articular extension.? Age-indeterminate but likely acute to subacute fractures involving the head of the left 3rd through 5th metatarsals.? Prominent plantar calcaneal enthesophyte.? Moderate degenerative changes of the dorsal left midfoot and hindfoot. ? Soft tissues:? No tibiotalar joint effusion.? Achilles tendon appears normal.? ? ? IMPRESSION:? ? 1. Acute, mildly displaced fracture involving the base of the left great toe proximal phalanx with intra-articular extension. ? 2. Age-indeterminate, but likely acute to subacute fractures involving the head of the left 3rd through 5th metatarsal.? Overlying soft tissue edema. ? 3. Stable postsurgical changes from arthrodesis of the medial left midfoot, distal fibula, and calcaneus.? No evidence for hardware complication. ? 4. Moderate degenerative changes of the left mid and hindfoot. ? 5. Diffuse osteopenia.? ? ? Dictated by: Pa Gallardo M.D. on 05/26/2022 at 13:03 ? ? Approved by: Pa Gallardo M.D. on 05/26/2022 at 13:08 ? MDM Narrative Medical decision making narrative: This is a 72-year-old female presents to the emergency department for left knee and left great toe pain after a mechanical fall two days ago due to tripping. She has a history of total knee replacement of her left knee, ecchymosis noted to left knee with edema, and abrasion to the dorsum of her great toe with surrounding ecchymosis, no range of motion deficit, no sensation deficit. Patient is neurovascularly intact, foot x-ray shows diffuse osteopenia, but an a cute mildly displaced fracture involving the base of the left great toe proximal phalanx with intra-articular extension. There are other age indeterminate fractures of the head of the left 3rd and 5th metatarsal, patient did not have tenderness over these areas. She has stable postsurgical changes from the arthrodesis of her medial left midfoot, distal fibula, and calcaneus without evidence for hardware complication. X-ray also shows moderate degenerative changes at the left mid and hindfoot. Left knee x-ray shows anterior left knee soft tissue swelling without underlying fracture or dislocation. Stable postsurgical changes and alignment of the left total knee arthroplasty without evidence of hardware complication. These results were shared with patient, she would like to follow-up with Podiatry and or [facility] with Dr. Manuel since she has performed surgery on patient's left foot in the past. Patient was fitted in a postop shoe and a consultation for Podiatry was made for Dr. Scruggs and orthopedic consult for Dr. Manuel. Patient is appropriate and amenable to discharge home. Vital signs are stable on repeat examination is unremarkable. Patient has been informed of results. Patient has been given strict return to ER precautions for any new or worsening symptoms. Patient understands to follow up closely with outpatient providers as instructed. Patient understands plan and agrees to discharge home. All questions and concerns answered at this time. Discharge Plan Departure Patient Disposition: Home Clinical Impression: Crush injury knee Qualifiers: Encounter type: initial encounter Laterality: left Qualified Code(s): S87.02XA - Crushing injury of left knee, initial encounter Fracture of great toe Qualifiers: Encounter type: initial encounter Fracture type: closed Phalanx: proximal Physeal involvement: not involving physis Laterality: left Qualified Code(s): S92.412A - Displaced fracture of proximal phalanx of left great toe, initial encounter for closed fracture Instructions: Toe Fracture, DI for Knee Pain Activity Restrictions/Additional Instructions: *You have been diagnosed with a fracture of the great toe on your left foot which extends into the joint. Please follow-up with Dr. Manuel or Dr. Taranow within one week. Please use ibuprofen, hydrocodone, Tylenol, ice, elevation and topical Voltaren gel for your pain. Please avoid as possible until you follow- up with one of those providers. Thank you for trusting us with your care, if your boot offers better support, please try that, I did not want you to leave here without adequate foot bed support. I have sent a consult for both of those providers. *What to do: *Please continue to take your regular medications as directed. [x ] New medication prescriptions sent to your pharmacy: [[facility] ] [ ] New medication written as a paper prescription [ ] No new medications given *Please follow up with your primary care provider in 2-3 days, call for an appointment. Let them know you were seen in the Emergency Department and that we asked that you be seen for follow-up. We will electronically transmit a record of today's note if your PCP is in our system *If you do not have a primary care provider please contact [phone] to establish care with one of the [facility] primary care providers. *Return to Emergency Department if you should have any new, worsening or concerning symptoms, such as [fever greater than 101F, chills, worsening pain, persistent vomiting or other bothersome symptoms] Prescriptions: New hydrocodone-acetaminophen 5-325 mg tablet 1 tab PO BID PRN (Reason: pain) Qty: 14 0RF diclofenac sodium 1 % gel 2 g topical QID Qty: 100 0RF Rx Instructions: apply to single elbow, wrist or hand; for hand includes palm/fingers/back of hand No Action trazodone 50 mg tablet 25 mg PO BEDTIME Label Comments: patient states unable to take meds today or yesterday paroxetine HCl 20 mg tablet 20 mg PO DAILY Label Comments: take 1 tablet by mouth daily for depression patient states unable to take meds today or yesterday gabapentin 300 mg capsule 300 mg PO SEEINSTR Label Comments: patient states unable to take meds today or yesterday Rx Instructions: 300mg bid, 900mg bedtime nitrofurantoin macrocrystal 100 mg capsule 100 mg PO BID Qty: 10 0RF Rx Instructions: must administer with a meal/food escitalopram oxalate 5 mg Tablet 5 mg PO DAILY omeprazole 20 mg Tablet,Delayed Release (Dr/Ec) 20 mg PO DAILY diclofenac potassium oxycodone 5 mg tablet 5 - 10 mg PO Q4H PRN (Reason: pain) Qty: 50 0RF Rx Instructions: POSTOP EXEMPT promethazine 12.5 mg tablet 12.5 mg PO TID PRN (Reason: nausea and vomiting) Qty: 7 0RF Referrals: Lisette Remy MD [Physician] - Julianna Ponce MD [Primary Care Provider] - Sourav Scruggs DO [Non-Staff] - 5-7 days Visit Report Forms: Patient Portal/API <Julieta Mckay DO - Last Filed: 05/28/22 07:11> Cosign ED Attending Xinature Attestation: I was immediately available in the department for consultation. Documentation has been reviewed. I agree with assessment and plan.
[2022-05-26] MEDS: HYDROCODONE/ACET 5/325 TABLET 1 TAB PO (13:59)
[2022-05-26] MEDS: IBUPROFEN 400 MG TABLET 600 MG PO (13:59)
== END 2022-05-26 14:33 | disposition home or self-care (01) ==
PROVIDERS: Emergency Provider Nurse Practitioner Critical Care Medicine; Family Provider Family Medicine; PCP Family Medicine
DX: S92.412A Displaced fracture of proximal phalanx of left great toe, initial encounter for closed fracture (principal); S87.02XA Crushing injury of left knee, initial encounter; Z96.652 Presence of left artificial knee joint; W19.XXXA Unspecified fall, initial encounter
CPT/HCPCS: 73562; 73630; 99283

== ENCOUNTER 2022-07-29 09:09 | Emergency (ER) | payer OTHER, SELFPAY ==
[2022-07-29] VITALS (13 sets, daily range): BP systolic 132–173; BP diastolic 65–97; PULSE 73–91; RESP 12–20; TEMP 36.2; O2SAT 94–99; BMI 37.3
--- NOTE | 2022-07-29 09:29 | DI.RAD.S_ITS ---
PROCEDURE: XR PELVIS 1-2V INDICATIONS: fall thursday, unable to bear weight, right groin + leg pain TECHNIQUE: 1 AP view(s) of the pelvis acquired. COMPARISON: None. FINDINGS: Lucency at the medial aspect of the right inferior pubic ramus suspicious for fracture. There may also be an extension of this fracture into the parasymphyseal pubic symphysis into the junction with the superior pubic ramus. IMPRESSION: Suspected right inferior and possibly superior pubic ramus fractures. Pelvic CT recommended. Dictated by: Clark Hu M.D. on 07/29/2022 at 10:10 Approved by: Clark Hu M.D. on 07/29/2022 at 10:12
--- NOTE | 2022-07-29 09:29 | DI.RAD.S_ITS ---
PROCEDURE: XR ANKLE RT 2V INDICATIONS: fall Thursday, unable to bear weight, right groin + leg pain TECHNIQUE: 2 views of the ankle were acquired. COMPARISON: [facility], CR, XR ANKLE LT MIN 3V, 11/30/2020, 8:46. [facility], CR, XR ANKLE RT MIN 3V, 09/12/2020, 12:44. FINDINGS: Bones: Posterior dislocation of the talus in relation to the tibia. Fracture at the medial malleolus. Possible fracture at the lateral malleolus. Remote fracture at the lateral malleolus was seen in 2019. Small plantar calcaneal spur. Soft tissues: Soft tissue swelling. Small tibiotalar joint effusion. Achilles tendon appears normal. IMPRESSION: Posterior dislocation of the talus in relation to the tibia. Medial malleolus fracture and probable lateral malleolus fracture. Consider CT for further evaluation. Dictated by: Alec Nation M.D. on 07/29/2022 at 10:13 Approved by: Alec Nation M.D. on 07/29/2022 at 10:16
--- NOTE | 2022-07-29 09:29 | DI.RAD.S_ITS ---
PROCEDURE: XR KNEE RT 1TO2V INDICATIONS: fall thursday, unable to bear weight, right groin + leg pain TECHNIQUE: 2 views of the knee were acquired. COMPARISON: [facility], CR, XR KNEE ARTHRITIC SERIES LT, 09/11/2020, 11:13. [facility], CR, XR KNEE LT 3V, 05/26/2022, 12:38. [facility], CR, KNEE 1-2 VIEWS LEFT, 10/10/2016, 12:30. FINDINGS: Bones: Lateral compartment hemiarthroplasty. No periprosthetic lucency to suggest loosening or infection. There may be lateral subluxation of the tibia in relation to the femoral condyle. Soft tissues: No joint effusion. No suspicious soft tissue calcifications. IMPRESSION: Possible lateral subluxation of the tibia in relation to the femoral condyle. Lateral compartment hemiarthroplasty. Dictated by: Alec Nation M.D. on 07/29/2022 at 10:17 Approved by: Alec Nation M.D. on 07/29/2022 at 10:20
--- NOTE | 2022-07-29 11:30 | ED.FALL ---
HPI - Fall General Chief Complaint: Fall Stated Complaint: Fell on Thursday, R ankle pain, R leg pain Time Seen by Provider: 07/29/22 11:29 Source: patient Mode of arrival: Wheelchair History of Present Illness HPI Narrative: Patient is a 72-year-old female history osteoarthritis presenting today with right ankle pain. She said she fell in the garage 2 nights ago. She has been unable to ambulate getting around by a wheeled office chair. She is certainly uncomfortable and in pain. She denies hitting her head, no loss of consciousness not on any anti-platelet or anticoagulation medication. She has no other injury. She denies numbness tingling or weakness. Related Data Home Medications Medication Instructions Recorded Confirmed gabapentin 300 mg capsule 300 mg PO SEEINSTR 06/03/18 11/30/20 paroxetine HCl 20 mg tablet 20 mg PO DAILY 06/03/18 11/30/20 trazodone 50 mg tablet 25 mg PO BEDTIME 06/03/18 11/30/20 diclofenac potassium 11/28/20 escitalopram oxalate 5 mg tablet 5 mg PO DAILY 11/28/20 11/30/20 omeprazole 20 mg tablet,delayed 20 mg PO DAILY 11/28/20 11/30/20 release Previous Rx's Medication Instructions Recorded nitrofurantoin macrocrystal 100 mg 100 mg PO BID #10 caps 03/10/20 capsule oxycodone 5 mg tablet 5 - 10 mg PO Q4H PRN pain #50 tabs 11/30/20 promethazine 12.5 mg tablet 12.5 mg PO TID PRN nausea and 11/30/20 vomiting #7 tabs diclofenac sodium 1 % topical gel 2 g topical QID #100 grams 05/26/22 hydrocodone 5 mg-acetaminophen 325 1 tab PO BID PRN pain #14 tabs 05/26/22 mg tablet ondansetron 4 mg disintegrating 4 mg PO Q6HR PRN nausea and 07/29/22 tablet vomiting #10 tabs oxycodone-acetaminophen 5 mg-325 1 tab PO Q6H PRN pain #20 tabs 07/29/22 mg tablet (Percocet) Allergies Allergy/AdvReac Type Severity Reaction Status Date / Time Sulfa (Sulfonamide Allergy Severe CHILDHOOD Verified 07/29/22 09:29 Antibiotics) RX- [SULFA (SULFONAMIDE swelling, ANTIBIOTICS)] comatose Review of Systems Review of Systems Narrative: GENERAL: Denies chills, fatigue, malaise, fever, sweats, travel HEENT: Denies sinus pain, ear pain, sore throat, difficulty swallowing, neck pain RESPIRATORY: Denies dyspnea, cough, wheezing, hemoptysis, sputum. CARDIOVASCULAR: Denies chest pain, palpitations, orthopnea, edema GASTROINTESTINAL: Denies nausea, vomiting, abdominal pain, diarrhea, constipation, melena. : Denies dysuria, frequency, incontinence, hematuria, urinary retention, flank pain. MUSCULOSKELETAL: See HPI SKIN: No rash, no erythema, no pruritus NEUROLOGIC: Denies weakness, dizziness, headache, numbness, change in speech, confusion PSYCHIATRIC: No concerning psychosocial issues. 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) Social History household members: significant other Smoking Status: Former smoker alcohol intake: current Smoking Status: Former smoker alcohol intake frequency: 0-2 drinks per day Substance Use Type: does not use Exam Initial Vital Signs Initial Vital Signs: Vital Signs Temperature 97.2 F L 07/29/22 09:22 Pulse Rate 75 07/29/22 09:22 Respiratory Rate 14 07/29/22 09:22 Blood Pressure 145/94 H 07/29/22 09:22 Pulse Oximetry 99 07/29/22 09:22 Oxygen Delivery Method 07/29/22 09:22 GENERAL: Awake alert 72-year-old female HEENT: Head atraumatic,EOMI, pupils reactive, face symmetric moist mucous membranes NECK: Supple no vertebral tenderness CARDIOVASCULAR: Regular rate and rhythm without murmurs, rubs or gallops. RESPIRATORY: Breath sounds equal bilaterally, no wheezes rales or rhonchi. ABDOMEN: Soft, nontender. Normoactive bowel sounds all 4 quadrants. No guarding or rebound.s EXTREMITIES: Normal range of motion, no clubbing or edema. Neurovascularly intact Obvious right ankle deformity with confusion in foot. Pulse is present but definitely heard on Doppler. Knee is stable minimal hip pain NEUROLOGICAL: Alert and oriented x4.N SKIN: Warm, dry, no laceration, no petechiae, no rashes or lesions. Procedures Orthopedic Fracture Reduction Fracture #1: Fracture Reduction Location: tibia Analgesia: procedural sedation Technique: direct manipulation Post Reduction X-rays Demonstrate: acceptable reduction Post-reduction neuro exam: intact and no change Post-reduction vascular exam: intact Splint Applied: Yes Patient Tolerated Procedure: Well and No complications Orthopedic Splinting/Casting Injury #1: Lower Extremity Injury Location: ankle Lower Extremity Immobilizer: posterior splint and stirrup splint Other Orthopedic Equipment: crutches Post splinting neuro exam: intact and no change Post splinting vascular exam: intact Procedural Sedation Consent signed: Yes ASA Class: II Mallampati Airway Classification: Class I Preparation: quality assurance monitor applied, pulse oximeter, capnometry used, supplemental O2 applied, suction/airway equipment at bedside and IV secured IV Propofol dose (mg): 50 Intraservice time/total sedation time (min): 13 ED Sedation Level: Moderate (Concious) Patient Tolerated Procedure: Well and No complications Complications: none Course Orders Ordered: ED Orders 07/29/22 11:20 CBC Auto Diff [Complete Blood Count AUTO DIFF] Stat CMP [Comprehensive Metabolic Panel] Stat COVID19 -Nasal RAPID/Pre-Proc Stat 07/29/22 12:09 CT pelvis wo con Stat XR ankle RT min 3V Stat XR foot RT min 3V Stat 07/29/22 15:30 Consult to Physical Therapy Evaluate & Treat Discontinued Medications Hydromorphone HCl (Hydromorphone 1 Mg Inj) 1 mg IV NOW ONE Stop: 07/29/22 11:36 Last Admin: 07/29/22 11:47 Dose: 1 mg Documented By: AMU Hydromorphone HCl (Hydromorphone 1 Mg Inj) 1 mg IV NOW ONE Stop: 07/29/22 14:39 Last Admin: 07/29/22 14:51 Dose: 1 mg Documented By: NR Propofol (Propofol 200 Mg/20 Ml Vial) 95 mg 1 mg/kg (95 mg) IV NOW ONE Stop: 07/29/22 11:36 Last Admin: 07/29/22 12:05 Dose: 50 mg Documented By: AMU Vital Signs Vital signs: Vital Signs - 8 hr 07/29/22 11:48 07/29/22 11:49 07/29/22 11:49 Pulse Rate 73 80 Respiratory Rate 19 13 Blood Pressure 173/97 H Pulse Oximetry 99 Oxygen Delivery Method 07/29/22 12:00 07/29/22 12:01 07/29/22 12:01 Pulse Rate 80 83 Respiratory Rate 12 12 Blood Pressure 166/90 H Pulse Oximetry 96 96 Oxygen Delivery Method 07/29/22 12:10 07/29/22 12:10 07/29/22 12:20 Pulse Rate 80 81 Respiratory Rate 19 16 Blood Pressure 142/65 H Pulse Oximetry 95 96 Oxygen Delivery Method Room Air 07/29/22 12:20 07/29/22 12:36 07/29/22 12:36 Pulse Rate 84 Respiratory Rate 20 Blood Pressure 133/66 134/88 Pulse Oximetry 96 Oxygen Delivery Method 07/29/22 13:00 07/29/22 13:00 07/29/22 13:30 Pulse Rate 84 Respiratory Rate 16 Blood Pressure 141/86 H 139/69 Pulse Oximetry 95 Oxygen Delivery Method 07/29/22 13:30 07/29/22 14:00 07/29/22 14:00 Pulse Rate 84 84 Respiratory Rate 15 14 Blood Pressure 132/72 Pulse Oximetry 94 95 Oxygen Delivery Method 07/29/22 14:30 07/29/22 14:30 07/29/22 15:00 Pulse Rate 91 H Respiratory Rate 13 Blood Pressure 153/87 H 139/85 Pulse Oximetry 95 Oxygen Delivery Method 07/29/22 15:00 Pulse Rate 81 Respiratory Rate Blood Pressure Pulse Oximetry 94 Oxygen Delivery Method MDM - Fall Lab Data Result diagrams: 07/29/22 11:20 07/29/22 11:20 Labs: Lab Results 07/29/22 07/29/22 07/29/22 Range/Units 11:20 11:20 11:20 WBC 10.1 (4.5-11.0) X10^3/uL RBC 4.05 (4.0-5.2) X10^6/uL Hgb 14.2 (12.0-16.0) g/dL Hct 41.0 (36-46) % MCV 101.2 H (80-100) fL MCH 35.1 H (26-34) PG MCHC 34.6 (30-36) % RDW 14.7 (11.6-14.8) % Plt Count 173 (150-400) X10^3/uL Neut % (Auto) 79.9 H (50-75) % Lymph % (Auto) 9.4 L (25-40) % [place] % (Auto) 10.2 (3-14) % Eos % (Auto) 0.1 L (2-4) % Baso % (Auto) 0.4 (0-2) % Neut # (Auto) 8100 H (1256-5925) /uL Lymph # (Auto) 1000 L (8110-7933) /uL [place] # (Auto) 1000 H (0-900) /uL Eos # (Auto) 0 (0-450) /uL Baso # (Auto) 0 (0-100) /uL Sodium 133 L (137-145) mmol/L Potassium 3.7 (3.4-5.1) mmol/L Chloride 98 (98-107) mmol/L Carbon Dioxide 26 (22-32) mmol/L BUN 13 (7-17) mg/dL Creatinine 0.69 (0.52-1.04) mg/dL Estimated GFR > 60 (>60) mL/min BUN/Creatinine Ratio 18.8 (6-22) Glucose 110 (80-110) mg/dL Calcium 9.2 (8.4-10.2) mg/dL Total Bilirubin 1.3 (0.2-1.3) mg/dL AST 44 H (14-36) IU/L ALT 21 (<35) IU/L Alkaline Phosphatase 75 (38-126) U/L Total Protein 7.6 (6.3-8.2) g/dL Albumin 4.2 (3.5-5.0) g/dL Globulin 3.4 (1.7-4.1) g/dL Albumin/Globulin Ratio 1.2 (1.0-2.8) SARS-CoV-2 (PCR) Negative (Negative) Imaging Data Extremity x-ray #1: Radiologist's Impression: Signed Patient: ChongNikolas greene MR#: [id number] : 1950 Acct:[id number] Age/Sex: 72 / F Date of Service: 07/29/22 Loc: ED Accession Number: [id number] ?? Procedure: XR ankle RT 2V Ordering Provider: Julieta Mckay D.O. PROCEDURE:? XR ANKLE RT 2V ? INDICATIONS:? fall Thursday, unable to bear weight, right groin + leg pain ? TECHNIQUE:? 2 views of the ankle were acquired.? ? COMPARISON:? [facility], , XR ANKLE LT MIN 3V, 11/30/2020, 8:46.? [facility], XR ANKLE RT MIN 3V, 09/12/2020, 12:44. ? FINDINGS:? ? Bones:? Posterior dislocation of the talus in relation to the tibia.? Fracture at the medial malleolus.? Possible fracture at the lateral malleolus.? Remote fracture at the lateral malleolus was seen in 2019. Small plantar calcaneal spur. ? Soft tissues:? Soft tissue swelling.? Small tibiotalar joint effusion.? Achilles tendon appears normal.? ? ? IMPRESSION:? Posterior dislocation of the talus in relation to the tibia. Medial malleolus fracture and probable lateral malleolus fracture. ? Consider CT for further evaluation. ? ? ? Dictated by: Alec Nation M.D. on 07/29/2022 at 10:13 ? ? PROCEDURE:? XR ANKLE RT MIN 3V ? INDICATIONS:? post reduction ? TECHNIQUE:? 3 views of the ankle were acquired.? ? COMPARISON:? [facility], XR ANKLE RT 2V, 07/29/2022, 9:36.? [facility], XR ANKLE RT MIN 3V, 09/12/2020, 12:44. ? FINDINGS/IMPRESSION:? ? Cast material degrades fine bone detail.? Improved alignment medial and lateral malleolar fractures.? Complete reduction of tibiotalar dislocation seen on prior study.? Moderate ankle joint effusion. ? Dictated by: Clark Hu M.D. on 07/29/2022 at 12:49 ? ? Approved by: Clark Hu M.D. on 07/29/2022 at 12:50 ? Extremity x-ray #2: Radiologist's Impression: tient: Nikolas Castillo MR#: [id number] : 1950 Acct:[id number] Age/Sex: 72 / F Date of Service: 07/29/22 Loc: ED Accession Number: [id number] ?? Procedure: XR pelvis 1-2V Ordering Provider: Julieta Mckay D.O. PROCEDURE:? XR PELVIS 1-2V ? INDICATIONS:? fall thursday, unable to bear weight, right groin + leg pain ? TECHNIQUE: ? 1 AP view(s) of the pelvis acquired.? ? COMPARISON:? None. ? FINDINGS:? ? Lucency at the medial aspect of the right inferior pubic ramus suspicious for fracture.? There may also be an extension of this fracture into the parasymphyseal pubic symphysis into the junction with the superior pubic ramus. ? IMPRESSION:? Suspected right inferior and possibly superior pubic ramus fractures.? Pelvic CT recommended.? ? ? Dictated by: Clark Hu M.D. on 07/29/2022 at 10:10 ? ? Approved by: Clark Hu M.D. on 07/29/2022 at 10:12? Extremity x-ray #3: Radiologist's Impression: XRay Report Signed Patient: Nikolas Castillo MR#: [id number] : 1950 Acct:[id number] Age/Sex: 72 / F Date of Service: 07/29/22 Loc: ED Accession Number: [id number] ?? Procedure: XR foot RT min 3V Ordering Provider: Julieta Mckay D.O. PROCEDURE:? XR FOOT RT MIN 3V ? INDICATIONS:? pain fall ? TECHNIQUE:? 3 views of the foot were acquired.? ? COMPARISON:? [facility], , XR ANKLE RT MIN 3V, 07/29/2022, 12:06. ? FINDINGS:? ? Cast material degrades fine bone detail.? Joaquin medial and lateral malleolar fractures redemonstrated.? No intrinsic but fracture identified, although it should be noted that the bones are diffusely demineralized which greatly limits sensitivity when combined with artifact from cast material. ? ? IMPRESSION:? Limited study.? No obvious foot fracture.? Medial and lateral malleolar fractures redemonstrated. ? ? Dictated by: Clark Hu M.D. on 07/29/2022 at 12:37 ? ? Approved by: Clark Hu M.D. on 07/29/2022 at 12:39 ? CT Pelvis: Radiologist's Impression: Signed Patient: Nikolas Castillo MR#: [id number] : 1950 Acct:[id number] Age/Sex: 72 / F Date of Service: 07/29/22 Loc: ED Accession Number: [id number] ?? Procedure: CT pelvis wo con Ordering Provider: Julieta Mckay D.O. PROCEDURE:? CT PEL WO CON ? INDICATIONS:? ? hip/pelvis fracture ? TECHNIQUE:? Noncontrast 3 mm axial sections acquired through the bony pelvis, with coronal and sagittal reformatting.? ? COMPARISON:? [facility] , XR PELVIS 1-2V, 07/29/2022, 9:36. ? FINDINGS:? Image quality:? Excellent.? ? Bones:? No fracture demonstrated.? Mild to moderate lower lumbar spine and bilateral hip degenerative changes.? No suspicious lytic or blastic osseous lesion. ? Soft tissues:? No acute soft tissue finding.? No hematoma or fluid collection demonstrated.? No presacral fluid. ? ? IMPRESSION:? No hip fracture identified. ? Dictated by: Clark Hu M.D. on 07/29/2022 at 12:46 ? ? Approved by: Clark Hu M.D. on 07/29/2022 at 12:49 ? EX #4: Radiologist's Impression: XRay Report Signed Patient: Nikolas Castillo MR#: [id number] : 1950 Acct:[id number] Age/Sex: 72 / F Date of Service: 07/29/22 Loc: ED Accession Number: [id number] ?? Procedure: XR knee RT 1to2V Ordering Provider: Julieta Mckay D.O. PROCEDURE:? XR KNEE RT 1TO2V ? INDICATIONS:? fall thursday, unable to bear weight, right groin + leg pain ? TECHNIQUE:? 2 views of the knee were acquired.? ? COMPARISON:? [facility], CR, XR KNEE ARTHRITIC SERIES LT, 09/11/2020, 11:13.? [facility], CR, XR KNEE LT 3V, 05/26/2022, 12:38.? [facility], CR, KNEE 1-2 VIEWS LEFT, 10/10/2016, 12:30. ? FINDINGS:? ? Bones:? Lateral compartment hemiarthroplasty.? No periprosthetic lucency to suggest loosening or infection.? There may be lateral subluxation of the tibia in relation to the femoral condyle. ? Soft tissues:? No joint effusion.? No suspicious soft tissue calcifications.? ? ? IMPRESSION:? Possible lateral subluxation of the tibia in relation to the femoral condyle.? Lateral compartment hemiarthroplasty. ? ? Dictated by: Alec Nation M.D. on 07/29/2022 at 10:17 ? ? MDM Narrative Medical decision making narrative: Patient has had a dislocated fracture right ankle for couple of days. He was easily reduced and splinted. Dr. Pierce orthopedics has been consulted states that patient should have surgery in 3 days and to call the office tomorrow. Upon discharge she is unable to use crutches unable to use a scooter can not use a walker. No a thing that seems to work is a office chair. She is given a wheelchair. PT came to evaluate questionable safe discharge. However both patient and state that they would like to go home they have a system at home that seems to be working. Discharge Plan Departure Patient Disposition: Home Clinical Impression: Ankle fracture Qualifiers: Encounter type: initial encounter Fracture type: closed Laterality: right Qualified Code(s): S82.891A - Other fracture of right lower leg, initial encounter for closed fracture Instructions: Ankle Fracture Activity Restrictions/Additional Instructions: *You have been diagnosed with right ankle fracture *What to do: Elevate as often as possible ice 20-30 minutes at a time. Do not get wet. You will likely have surgery on Thursday. Call orthopedic office today. *Continue to take medications as directed Percocet 1-2 tabs every 6 hours Zofran 4 mg every 8 hours if needed for nausea or vomiting *Follow up with your primary care provider in 2-3 days or call [phone] *Return to ER if you should have increasing swelling pain [or] any new, worsening or concerning symptoms CONTROLLED SUBSTANCE DISCHARGE (Narcotoic/benzodiazepine/Flexeril/Phenergan) 1. You have been prescribed narcotic medications, it does have acetaminophen/Tylenol/paracetamol in it, DO NOT TAKE MORE THAN 4,00mg in 24 hours of Tylenol. TRAMADOL DOES NOT CONTAIN TYLENOL 2. Please understand that we cannot provide further refills of narcotics, benzodiazepines or controlled substances through the ED and her pain management will need to be through your provider. 3. While on these medications you cannot drive or operate heavy machinery. 4. You cannot sign legal documents or perform any duties such as this. 5. As long as you're taking opiate pain medications he should also be taking a stool softener such as Colace, Dulcolax, MiraLAX or prune juice, to help avoid constipation. Prescriptions: New oxycodone-acetaminophen [Percocet] 5-325 mg tablet 1 tab PO Q6H PRN (Reason: pain) Qty: 20 0RF ondansetron 4 mg tablet,disintegrating 4 mg PO Q6HR PRN (Reason: nausea and vomiting) Qty: 10 0RF No Action trazodone 50 mg tablet 25 mg PO BEDTIME Label Comments: patient states unable to take meds today or yesterday paroxetine HCl 20 mg tablet 20 mg PO DAILY Label Comments: take 1 tablet by mouth daily for depression patient states unable to take meds today or yesterday gabapentin 300 mg capsule 300 mg PO SEEINSTR Label Comments: patient states unable to take meds today or yesterday Rx Instructions: 300mg bid, 900mg bedtime nitrofurantoin macrocrystal 100 mg capsule 100 mg PO BID Qty: 10 0RF Rx Instructions: must administer with a meal/food escitalopram oxalate 5 mg Tablet 5 mg PO DAILY omeprazole 20 mg Tablet,Delayed Release (Dr/Ec) 20 mg PO DAILY diclofenac potassium oxycodone 5 mg tablet 5 - 10 mg PO Q4H PRN (Reason: pain) Qty: 50 0RF Rx Instructions: POSTOP EXEMPT promethazine 12.5 mg tablet 12.5 mg PO TID PRN (Reason: nausea and vomiting) Qty: 7 0RF hydrocodone-acetaminophen 5-325 mg tablet 1 tab PO BID PRN (Reason: pain) Qty: 14 0RF diclofenac sodium 1 % gel 2 g topical QID Qty: 100 0RF Rx Instructions: apply to single elbow, wrist or hand; for hand includes palm/fingers/back of hand Referrals: Julianna Ponce MD [Primary Care Provider] - Visit Report Forms: Patient Portal/API
[2022-07-29] MEDS: HYDROMORPHONE 1 MG INJ IV ×2 (11:47→14:51)
[2022-07-29 11:55] LABS: Add Manual Diff / Slide Review NO; Basophils Absolute Auto 0 /uL (0-100); Basophils Percent Auto 0.4 % (0-2); Eosinophils Absolute Auto 0 /uL (0-450); Eosinophils Percent Auto 0.1 % (2-4); Hemoglobin 14.2 g/dL (12.0-16.0); Lymphocytes Absolute Auto 1000 /uL (1100-4500); Lymphocytes Percent Auto 9.4 % (25-40); Mean Corpuscular HGB Conc 34.6 % (30-36); Mean Corpuscular Hemoglobin 35.1 PG (26-34); Mean Corpuscular Volume 101.2 fL (80-100); Monocytes Absolute Auto 1000 /uL (0-900); Monocytes Percent Auto 10.2 % (3-14); Neutrophils Absolute Auto 8100 /uL (1500-7000); Neutrophils Percent Auto 79.9 % (50-75); Platelet Count 173 X10^3/uL (150-400); Red Blood Cell Count 4.05 X10^6/uL (4.0-5.2); Red Cell Distribution Width 14.7 % (11.6-14.8); White Blood Cell Count 10.1 X10^3/uL (4.5-11.0)
[2022-07-29 12:03] LABS: COVID19 -Nasal RAPID Negative (Negative)
[2022-07-29 12:04] LABS: Alanine Aminotransferase 21 IU/L (<35); Albumin 4.2 g/dL (3.5-5.0); Albumin Globulin Ratio 1.2 (1.0-2.8); Alkaline Phosphatase 75 U/L (38-126); Aspartate Aminotransferase 44 IU/L (14-36); BUN Creatinine Ratio 18.8 (6-22); Bilirubin Total 1.3 mg/dL (0.2-1.3); Blood Urea Nitrogen 13 mg/dL (7-17); Calcium 9.2 mg/dL (8.4-10.2); Carbon Dioxide 26 mmol/L (22-32); Chloride 98 mmol/L (98-107); Estimated Glomerular Filt Rate > 60 mL/min (>60); Globulin 3.4 g/dL (1.7-4.1); Glucose 110 mg/dL (80-110); HEMOLYSIS < 15 (0-50); Potassium 3.7 mmol/L (3.4-5.1); Sodium 133 mmol/L (137-145); Total Protein 7.6 g/dL (6.3-8.2)
[2022-07-29] MEDS: propofoL 200 MG/20 ML VIAL 95 MG IV (12:05)
--- NOTE | 2022-07-29 12:09 | DI.RAD.S_ITS ---
PROCEDURE: XR FOOT RT MIN 3V INDICATIONS: pain fall TECHNIQUE: 3 views of the foot were acquired. COMPARISON: [facility], , XR ANKLE RT MIN 3V, 07/29/2022, 12:06. FINDINGS: Cast material degrades fine bone detail. Joaquin medial and lateral malleolar fractures redemonstrated. No intrinsic but fracture identified, although it should be noted that the bones are diffusely demineralized which greatly limits sensitivity when combined with artifact from cast material. IMPRESSION: Limited study. No obvious foot fracture. Medial and lateral malleolar fractures redemonstrated. Dictated by: Clark Hu M.D. on 07/29/2022 at 12:37 Approved by: Clark Hu M.D. on 07/29/2022 at 12:39
--- NOTE | 2022-07-29 12:09 | DI.CT.S_ITS ---
PROCEDURE: CT PEL WO CON INDICATIONS: ? hip/pelvis fracture TECHNIQUE: Noncontrast 3 mm axial sections acquired through the bony pelvis, with coronal and sagittal reformatting. COMPARISON: [facility], CR, XR PELVIS 1-2V, 07/29/2022, 9:36. FINDINGS: Image quality: Excellent. Bones: No fracture demonstrated. Mild to moderate lower lumbar spine and bilateral hip degenerative changes. No suspicious lytic or blastic osseous lesion. Soft tissues: No acute soft tissue finding. No hematoma or fluid collection demonstrated. No presacral fluid. IMPRESSION: No hip fracture identified. Dictated by: Clark Hu M.D. on 07/29/2022 at 12:46 Approved by: Clark Hu M.D. on 07/29/2022 at 12:49
--- NOTE | 2022-07-29 12:09 | DI.RAD.S_ITS ---
PROCEDURE: XR ANKLE RT MIN 3V INDICATIONS: post reduction TECHNIQUE: 3 views of the ankle were acquired. COMPARISON: [facility], CR, XR ANKLE RT 2V, 07/29/2022, 9:36. [facility], CR, XR ANKLE RT MIN 3V, 09/12/2020, 12:44. FINDINGS/IMPRESSION: Cast material degrades fine bone detail. Improved alignment medial and lateral malleolar fractures. Complete reduction of tibiotalar dislocation seen on prior study. Moderate ankle joint effusion. Dictated by: Clark Hu M.D. on 07/29/2022 at 12:49 Approved by: Clark Hu M.D. on 07/29/2022 at 12:50
--- NOTE | 2022-07-29 15:45 | PT.IIE ---
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) Medical History (Last Reviewed 07/29/22 @ 12:46 by Julieta Mckay DO) Ankle fracture (~2017) Arthritis Arthritis of foot, left Closed torus fracture of distal end of left fibula Closed torus fracture of distal end of right fibula with routine healing Depression Diverticulitis Diverticulosis Former smoker Osteoarthritis Pes planus Tingling Physical Therapy Inpatient Evaluation/Re-Eval M1 PT/OT-IP Prior Functional Status Start: 07/29/22 16:29 Freq: Status: Active Protocol: Document 07/29/22 15:45 AB (Rec: 07/29/22 16:46 AB [id number]) Medical Review Prior Functional Status Medical History Reviewed Yes Communication able to make needs known Mobility and Gait pt stated that she is independent with all mobilities and ambulation without AD indoors but uses a SPC for outdoor mobility; pt stated that she has been using an office chair with wheels at home since falling last thursday Social History Household Members significant other Living Arrangements House Number of Floors (Floors) One Floor Number of Stairs To Enter/Railing? 2 steps R rail ascending Home Environment Standard Height Toilet Home Equipment Front Wheel Walker,Straight Cane,Crutches Additional Social History Comment pt stated that they don't have a shower right now since it is being renovated M2 PT-IP Current Condition Start: 07/29/22 16:29 Freq: Status: Active Protocol: Document 07/29/22 15:45 AB (Rec: 07/29/22 16:46 AB [id number]) Physical Therapy Current Condition Current Condition Evaluation Date 07/29/22 Treatment Diagnosis s/p fall; R ankle fx; difficulty in walking Onset Date 07/29/22 M3 PT-IP Subjective Start: 07/29/22 16:29 Freq: Status: Active Protocol: Document 07/29/22 15:45 AB (Rec: 07/29/22 16:46 AB [id number]) Subjective Physical Therapy Visit Type Type Initial Evaluation Visit Start Time 15:45 Visit Stop Time 16:24 Total Visit Minutes 39 Number of LEARNING SUPPORT TEACHER Visits 0 Physical Therapy Visit Comments Patient Comments pt stated that she is tired Therapy Pain Assessment Pain When Pain Assessed At Rest Pain Present Pain Present Pain Reported Location Right Ankle Intensity 9 Scale Used Numeric (0 - 10) Pain Management Techniques Distraction,Modification of Treatment,Re-positioning M4 PT-IP Mobility and Gait Start: 07/29/22 16:29 Freq: Status: Active Protocol: Document 07/29/22 15:45 AB (Rec: 07/29/22 16:46 AB [id number]) PT-Transfer Assessment Sit to and From Stand Sit to and from Stand Minimal Assistance,1 Person Assistance,Use of Upper Extremities Equipment Transfer Assistive Device None,Gait Belt,Front Wheeled Walker Orthotic/Prosthetic Devices or Brace: Yes Transfers Transfer Destination Wheelchair Transfer Technique Squat Pivot Transfer Ability Level of Assist Standby Assistance,Use of Upper Extremities Comments Mobility Comments pt sitting on EOB and spouse in room. educated on R ankle precautions and NWB restriction. pt understood. pt completed sit to stand from EOB min A and attempted to ambulate using a FWW but was only able to take a step with minimal LE elevation to clear off the floor. pt sat back on the EOB. pt stated that she is just very tired and has not eaten and just wants to go home. talked to pt and spouse and stated that they have been using an office chair with wheels for pt since the fall and can manage. pt stated that they will get a w/c on their way home. inquired about stair climbing and spouse stated that they have a stool that they positioned on the 2nd step (1st step is on ~ 4 inches high) and pt stands and sits on the chair and pt rotates to face the door and pt then gets up again and transfer to the office chair. educated pt and spouse regarding safety and equipement needs: ramp, RTS with handles and w/c. pt and spouse understood and agreed. pt is insistent that she goes home and spouse confirmed that they can manage at home and that there is another person that can assist them to get into the house. pt instructed to demonstrate transferring to a w/c. pt completed bed to w/c squat pivot SBA. informed ER doctor regarding pt's mobility and d/c plan. Gait Assessment Comments Gait Comments unable at this time PT-Balance Assessment Sitting Balance and Reactions Static Sitting Balance Ability Good Dynamic Sitting Balance Ability Good Standing Balance and Reactions Static Standing Balance Ability Fair Dynamic Standing Balance Ability Poor Device Used FWW M5 PT-IP Objective Assessments Start: 07/29/22 16:29 Freq: Status: Active Protocol: Document 07/29/22 15:45 AB (Rec: 07/29/22 16:46 AB [id number]) Orientation Orientation/Cognition Level of Alertness Alert Orientation Name,Place,Situation Language Function Ability No Deficits Noted Safety Awareness Decreased Safety Awareness Gross Range of Motion Lower Extremity ROM Assessment Right Impaired Impairments R ankle on a soft cast Muscle Tone Muscle Tone WNL Yes M6 PT-IP Treatment Start: 07/29/22 16:29 Freq: Status: Active Protocol: Document 07/29/22 15:45 AB (Rec: 07/29/22 16:46 AB [id number]) Physical Therapy Treatment Education Education Provided Weight Bearing Status,Safety M7 PT-IP Assessment and Plan Start: 07/29/22 16:29 Freq: Status: Active Protocol: Document 07/29/22 15:45 AB (Rec: 07/29/22 16:46 AB [id number]) PT Summary Assessment and Plan Potential Rehabilitation Potential Fair Status of Condition at Evaluation Evolving Summary Impairments Pain,ROM,Strength,Balance, Coordination,Sensation,Tone, Cognition,Bed Mobility, Transfers,Gait,Activity Tolerance Assessment Summary Received PT eval order from ER to assess pt's mobility for safe d/c home. pt was unable to ambulate using FWW but was able complete squat pivot bed to w/c SBA. pt and spouse insistent on going home and stated that they can manage at home. educated on safety and equipement needs. informed ER doctor. Goals Bed Mobility Goal Independent Transfer Goal Standby Assistance,Front Wheeled Walker Gait Goal Standby Assistance,Front Wheel Walker Gait Distance 25 Days to Meet Goals 5 Frequency of Treatment Frequency Of Treatment Once a Day Treatment Plan Physical Therapy Treatment Plan Bed Mobility Training,Transfer Training,Gait Training, Therapeutic Exercise,Balance Retraining,Discharge Planning, Hot or Cold Pack,Neuromuscular Re-ed,Coordination Retraining ,Manual Therapy Weight Bearing Status Weight Bearing Status Non-Weight Bearing Allowed Weight Bearing Amount (enter % RLE NWB or #) (%) Recommendations To Nursing Amount of Assist Needed 1 Person Assist Discharge Recommendations PT Discharge Recommendations Home with 01/06 Assist Available,Home Health,SNF Rehab,Home vs SNF Transportation Needs at Discharge Wheelchair/Cabulance,Stretcher /Ambulance
== END 2022-07-29 16:47 | disposition home or self-care (01) ==
PROVIDERS: Emergency Provider Emergency Medicine; Family Provider Family Medicine; PCP Family Medicine
DX: S82.51XA Displaced fracture of medial malleolus of right tibia, initial encounter for closed fracture (principal); W19.XXXA Unspecified fall, initial encounter; Z20.822 Contact with and (suspected) exposure to COVID-19
CPT/HCPCS: 27762; 72170; 72192; 73560; 73600; 73610; 73630; 80053; 85025; 87635; 96374; 96376; 97162; 99152; 99284; C9803; J1170; J2704

== ENCOUNTER 2022-08-05 07:56 | Day surgery (SDC) | payer OTHER, SELFPAY ==
[2022-07-31 11:54] VITALS: BMI 36.0
[2022-08-05] VITALS (14 sets, daily range): BP systolic 104–149; BP diastolic 55–98; PULSE 93–121; RESP 9–92; TEMP 36.3–36.8; O2SAT 88–98; BMI 37.3
[2022-08-05 08:50] LABS: COVID19 -Nasal RAPID Negative (Negative)
[2022-08-05] MEDS: LACTATED RINGERS 1,000 ML 42 ML IV (09:12)
[2022-08-05] MEDS: ACETAMINOPHEN 325 MG TABLET 975 MG PO (09:18)
--- NOTE | 2022-08-05 09:41 | P.OP_ITS ---
Operative Date/Time/Diagnoses Date of procedure: 08/05/22 Time of procedure: 13:42 Pre-op diagnosis: Right bimalleolar ankle fracture Post-op diagnosis: same Procedure & Clinicians Procedure: 1. Operative fixation medial and lateral malleolus 2. Operative fixation of syndesmosis 3. Repair of deltoid ligament Same procedure as scheduled: Yes Indications: This is a 72-year-old female who presented to the emergency department after a twisting fall sustaining a right ankle fracture dislocation. It was reduced in the emergency department and seen by myself in clinic. In order to create a stable platform for walking, in order to reduce the risk of malunion and nonunion, and allow earlier ambulation, and decrease the risk of arthritis, s urgery was recommended. The risks and benefits of surgery including the risk of bleeding, infection, revision, or were explained in detail. No guarantees were made regarding outcomes. She wished to go forth with surgery at this point. Surgeon: Jose Barney Fiscal Analyst: Adri Madrigal Anesthesia Type: General Operative Notes Findings: See operative note Closure Type: primary Prosthetic devices, grafts, tissues, transplants, or devices: Nicholas and nephew 3.5 1/3 tubular plate 2.5/3.5 lateral distal fibula plate Estimated Blood Loss (mL): 50 Blood products transfused: none Tourniquet time (min): 195 Procedure in detail: The patient was seen in the preoperative area where consent was signed and the correct right lower leg was marked. Risks were again described in detail which she wished to go forth. She was brought back to the operating room and placed supine on the operating table. Smooth induction of general anesthesia was performed. 2 g of Ancef were given. The right lower extremity was prepped and draped in the standard sterile fashion. A time-out was performed and my initials were again identified. We then proceeded addressing the lateral malleolus. A 6 cm incision was made over the distal fibula. The superficial peroneal nerve was not identified during this approach. An oblique fracture was noted at the distal fibula which was easily reducible. At this time I examined the syndesmosis which had bone and cartilage debris in it, there is also an impaction fracture to the anterior lateral tibial plafond. The cartilage in this area was not repairable. A Nicholas and Nephew 2.5 by 3.5 lateral distal fibula plate was put in place and the ankle reduced. A single shaft screw was initially placed followed by 2.5 mm locking screws distally. We then placed another shaft screw, nonlocking, and did an external rotation stress test which demonstrated an unstable syndesmosis. We then placed 2 quad cortical syndesmotic screws. After these were placed the ankle was again stressed and the syndesmosis was stable although there was talar tilt. We then turned our attention to the medial malleolus. After a direct approach, the saphenous vein was over the fracture and was sacrificed. The fracture edges were debrided and irrigated. 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 A 3.5 1/3 tubular plate was then placed over the medial malleolus in antiglide fashion. Three proximal holes were filled. I then repaired the deltoid ligament with a TigerTape, capturing in a locking Krackow stitch and then looping both ends through the most distal screw in the antiglide plate. The screw was then tightened and the sutures were tied down. Throughout the case, fluoroscopy was used to assess screw lengths, adequate reduction, and final fixation. Final images were obtained and saved. Thorough irrigation was performed with 1 L of sterile saline. The wounds were then closed with 2-0 Vicryl and 2-0 nylon. The wounds were dressed with Xeroform, 4x4s, cast padding, and she was then placed into a short-leg splint. After procedure was performed on abductor canal block was administered by anesthesia. She awoke without complications and went to recovery. Complications: none Post-operative Condition: stable Disposition: PACU Plan for aftercare: Postoperative plan will be nonweightbearing for 12 weeks. Her splint may come off at her 1st postoperative visit. After which she can shower daily and transition to a boot. She will have a 2 week and a 6 week follow-up. New images to be obtained at the 6 week follow-up.
--- NOTE | 2022-08-05 09:54 | PM.PREOP ---
Pre-operative Note Interval Note History & Physical reviewed/Exam performed by Physician: Yes Changes to H&P: No
--- NOTE | 2022-08-05 10:23 | SUR.PREOP ---
Block start time [1009] . Monitoring initiated and maintained throughout procedure. Oxygen and medications given per anesthesiologist instructions. Patient remained stable throughout procedure, no adverse reactions noted. Block end time [1020].
[2022-08-05] MEDS: CEFAZOLIN 2 GM/100 ML PREMIX 100 ML IV (10:35)
[2022-08-05] MEDS: TRANEXAMIC ACID 1,000 MG VIAL 1000 MG INJ (10:46)
--- NOTE | 2022-08-05 11:00 | SUR.OPER ---
Supine on padded OR bed, head on pillow, arms secured on padded arm boards at <90 degrees abduction, folded blanket bump and gel pad under right arm, legs uncrossed, safety belt at thigh, tape over blanket over left lower leg. Folded blanket X4 bump under right hip. Right leg in control of the Surgeon. Patients glasses brought with patient to OR, in black glass case with patient ID label. Then brought with patient to PACU.
--- NOTE | 2022-08-05 13:04 | DI.RAD.S_ITS ---
PROCEDURE: XR ANKLE RT MIN 3V INDICATIONS: ANKLE FX REPAIR TECHNIQUE: 4 intraoperative fluoroscopic images of the right ankle. COMPARISON: [facility], CR, XR ANKLE RT MIN 3V, 07/29/2022, 12:06. FINDINGS: Four intraoperative fluoroscopic images of the right ankle redemonstrate the medial and lateral malleolar fractures , now status post interval plate and screw reconstruction as well as placement of a syndesmotic screw. Ankle mortise is congruent with no significant change upon stress. IMPRESSION: Medial and lateral malleolar fractures status post plate screw ORIF. Dictated by: Clark Hu M.D. on 08/05/2022 at 16:40 Approved by: Clark Hu M.D. on 08/05/2022 at 16:43
[2022-08-05] MEDS: ONDANSETRON 4 MG/2 ML INJ IV (13:54)
[2022-08-05] MEDS: fentaNYL 100 MCG/2 ML INJ IV ×2 (13:55→14:17)
[2022-08-05] MEDS: hydrOXYzine 50 MG/ML INJ IM (14:05)
[2022-08-05] MEDS: OXYCODONE IR 5 MG TABLET PO ×2 (14:07→14:37)
--- NOTE | 2022-08-05 14:09 | SUR.PHASEI ---
Patient arrives to PACU at 1346 with anesthesia and nursing staff; patient's HR noted to be 120 sinus tachycardia; Dr Anaya, anesthesia aware. No new orders given for tachycardia except to continue monitoring. Per OR staff, tourniquet time was 2 hours and 15 minutes. Patient c/o 10/10 pain to right groin area where tourniquet was located. Medicated for pain.
== END 2022-08-05 16:17 | disposition home or self-care (01) ==
PROVIDERS: Family Provider Family Medicine; PCP Family Medicine; Referring Provider Orthopaedic Surgery; Visit Provider Orthopaedic Surgery
PROC: 0SSF04Z Reposition Right Ankle Joint with Internal Fixation Device, Open Approach (ICD-10-PCS; CPT 27814; principal; 2022-08-05 09:45)
DX: S82.841A Displaced bimalleolar fracture of right lower leg, initial encounter for closed fracture (principal); S93.421A Sprain of deltoid ligament of right ankle, initial encounter; W01.0XXA Fall on same level from slipping, tripping and stumbling without subsequent striking against object, initial encounter; Z20.822 Contact with and (suspected) exposure to COVID-19
CPT/HCPCS: 27814; 27829; 27695; 64450; 73610; 76000; 87635; J0171; J0690; J1100; J1170; J2250; J2405; J2590; J2704; J2765; J3010; J3410

== ENCOUNTER 2023-07-17 11:25 | Day surgery (SDC) | payer OTHER, SELFPAY ==
[2023-07-10 11:32] VITALS: BMI 41.3
[2023-07-17] VITALS (8 sets, daily range): BP systolic 115–160; BP diastolic 65–88; PULSE 76–110; RESP 12–17; TEMP 36.1; O2SAT 92–95; BMI 43.0
--- NOTE | 2023-07-17 | DI.RAD.S_ITS ---
PROCEDURE: XR ANKLE RT 2V INDICATIONS: ORIF OF RT ANKLE TECHNIQUE: Fluoroscopic images were obtained during an operative procedure and submitted for interpretation following the completion of the procedure. COMPARISON: [facility], CR, XR FOOT 3 VIEWS WEIGHT BEARING RIGHT, 07/08/2023, 15:43. [facility], CR, XR ANKLE RT MIN 3V, 08/05/2022, 11:31. FINDINGS: These fluoroscopic images were performed for intraoperative localization. On these images, the fusion hardware has been revised, with a jazmine from the distal tibia through the inferior calcaneus, with posterior calcaneal screws also seen. Please correlate with intraoperative findings. IMPRESSION: Normal intraoperative examination. Dictated by: Wagner Priest M.D. on 07/17/2023 at 22:43 Approved by: Wagner Priest M.D. on 07/17/2023 at 22:44
--- NOTE | 2023-07-17 13:50 | PM.PREOP ---
Pre-operative Note Interval Note History & Physical reviewed/Exam performed by Physician: Yes Changes to H&P: No
[2023-07-17] MEDS: CEFAZOLIN 2 GM/100 ML PREMIX 100 ML IV (14:25)
--- NOTE | 2023-07-17 14:27 | SUR.PREOP ---
Block start time [1407] . Monitoring initiated and maintained throughout procedure. Oxygen and medications given per anesthesiologist instructions. Patient remained stable throughout procedure, no adverse reactions noted. Block end time [1428].
[2023-07-17] MEDS: LACTATED RINGERS 1,000 ML 42 ML IV ×2 (14:29→17:06)
--- NOTE | 2023-07-17 15:17 | SUR.OPER ---
Supine on padded OR bed, head on pillow, arms secured on padded arm boards at <90 degrees abduction, legs uncrossed, safety belt at thigh, tape over blanket over non operative leg. Operative leg bumped on multiple blankets.
--- NOTE | 2023-07-17 18:56 | P.OP_ITS ---
Operative Date/Time/Diagnoses Date of procedure: 07/17/23 Time of procedure: 14:30 Pre-op diagnosis: 1. Posttraumatic arthritis right ankle 2. Closed fracture right ankle with malunion 3. Osteoporosis 4. Hallux rigidus right foot 5. BMI 43 Post-op diagnosis: same Procedure & Clinicians Procedure: 1. Arthrodesis ankle open, right CPT code 74526 2. Arthrodesis subtalar joint CPT code 97806, right 3. Excision distal fibula CPT code 93924, right 4. Removal of implant deep ankle multiple sites 2 plates and multiple screws from lateral malleolus and medial malleolus CPT code 07197 5. Cheilectomy great toe right separate site--CPT code 44412 with modifier +59 for separate site of surgery 6. Bone graft harvest from distal fibula autograft CPT code 61199, right Same procedure as scheduled: Yes Indications: Patient is a 73-year-old female that had a osteoporotic ankle fracture last year she had an ORIF by another surgeon she went on to failure of fixation malunion and posttraumatic arthritis with loss of reduction, loosening of hardware and symptomatic malunion. She was indicated for hardware removal and fusion. Due to her bone loss at the lateral distal tibia and profound osteoporosis she was indicated for hindfoot fusion with subtalar and ankle arthrodesis. Hardware removal was required. Additionally she has a painful hallux rigidus of the right foot. She understands that she has arthritis beyond spurs but her primary pain was the large dorsal spurs. She desired to undergo cheilectomy at the same time of her hindfoot fusion to aid with the shoe wear. She understands that this procedure would not be designed to deal with mid range of motion pain at the great toe. And will be done to ease shoe wear due to the dorsal bunion. The risks and benefits of the procedure have been discussed with the patient and given the opportunity to ask questions. The risks of surgery include but are not limited to infection, malunion, nonunion, persistence of pain, damage to nerves and blood vessels, posttraumatic arthritis, DVT, PE, cardiopulmonary complications and . The patient expressed a thorough understanding of the risks and benefits of surgery and has elected to proceed. Consent was signed. During the operation, the services of a physician surgical attendant were medically indicated and necessary to provide the exposure of the operative site for the surgical procedure and to maintain the limb in a proper position to carry out the operation safely and efficiently. Without a qualified assistant customer service manager being present this would extended the operative procedure and made the procedure technically more difficult to perform. Surgeon: Lisette Remy Production Welder: Jaquelin Castanon Click Yes if Unassisted: Yes Anesthesia Type: General Operative Notes Findings: Right ankle malunion with retained hardware mortise widening and distal tibial profound cartilage loss and erosion of the lateral plafond. Loosened hardware demonstrated at the fibula. Hardware was removed medial and lateral. The distal fibula and medial malleolus were removed. Parallel cuts were made across the tibial plafond and talus to allow healthy cancellous bleeding surfaces in apposition at a neutral dorsiflexion position. This was then pinned in place followed by final fixation with the paragon 28 dynamic hindfoot jazmine. Right great toe demonstrated end-stage arthritis with large metatarsal head and proximal phalanx dorsal osteophytes these were removed using a rongeur and then a TPS saw was used to remove approximately 1/3 of the dorsal metatarsal head to allow for increased excursion. There was visualized cartilage loss at the central metatarsal head and proximal phalanx. Range of motion following the procedure 60? dorsiflexion 20? plantar flexion at the great toe Closure Type: primary Specimen(s): none sent Prosthetic devices, grafts, tissues, transplants, or devices: [place] 28 phantom activcore dynamic hindfoot jazmine--10 mm x 200 mm Calcaneal screws 55 and 60 mm 0 end cap Tibial screws/pegs 2 (28 mm by 5 mm Estimated Blood Loss (mL): 100 Blood products transfused: none Tourniquet time (min): 120 Procedure in detail: Patient was seen in the preoperative area the site of surgery marked informed consent confirmed she was brought back to the operating room by the anesthesia team. A preoperative regional block was placed for postoperative pain control by the anesthesiologist. Once in the operating room general anesthetic was administered. The patient was positioned supine on operative table. All bony prominences well padded. A well-padded thigh tourniquet was placed. An ipsilateral thigh bump was placed as well as a stack of towels under the extremity to achieve neutral rotation. Right lower extremities prepped and draped in a standard sterile fashion a formal time-out procedure was performed confirming the patient's side and site of surgery administration of appropriate preoperative antibiotic. All were in agreement. Esmarch was used for exsanguination the tourniquet raised on the thigh to 250 mmHg. During the procedure after approximately 70 minutes of tourniquet the patient became hypertensive and the tourniquet became venous this was taken down hemostasis was achieved. Once the blood pressure was controlled the tourniquet was elevated and remained at 300 mm until the duration of tourniquet for a total of 120 minutes this was then let down and not reinflated. Cheilectomy. Attention was turned to the right great toe there was a dorsal bunion that was palpable. A 4 cm incision over the 1st MTP joint was taken down through the skin careful dissection was taken medial to the EHL which was retracted laterally. The dorsal capsule was opened exposing the dorsal osteophytes at the proximal phalanx and metatarsal head. These were removed with a rongeur then the TPS saw was used to remove proximally 1/3 of the dorsal metatarsophalangeal joint to increase excursion. The joint was inspected there was significant cartilage loss within the 1st MTP joint. Excursion of the joint at the end of the procedure was approximately 20? of plantar flexion 60? of dorsiflexion. This point the wound was irrigated and closed deep with 2-0 Vicryl suture subcutaneous with 4-0 Monocryl and the skin with 4-0 nylon suture. Ankle hardware removal: The previous lateral and medial incisions on the ankle were then opened through the skin and dissected down to the level of the plate on the fibula the plate and screws were exposed the syndesmotic screws were loose. The Nicholas and Nephew screwdriver was used to remove the distal fibula plate and screws including 3 5 shaft screws and 2 7 distal screws. The plate was then removed. Attention was turned medially and again the incision on the medial side of the ankle was then opened this was dissected down to the level of the plate on the distal tibia the shaft screws were removed and followed by the plate. Ankle fusion, subtalar fusion, distal fibular excision Next attention was turned to the ankle and subtalar fusion and distal fibular excision. The TPS saw was used to complete the fibular osteotomy that expose the lateral ankle joint. This was then dissected free split longitudinally and taken to the back table for harvest for local autograft bone. Then attention was turned to the ankle and subtalar joints from the lateral side the K-wire distractor was used to distract the subtalar joint and a combination of the ming Ashrafger osteotome and bur was used to prepare the posterior facet of the subtalar joint. Next attention was turned to the ankle joint. Due to the erosion of the lateral tibial plafond it was felt that the best bony apposition could be obtained by minimal shortening right through the level of the syndesmotic screws therefore a guidewire was placed through the tibia and parallel cut were created through the distal tibia all the way to the medial malleolus and then in parallel on the talar dome. This bone was then removed through the medial and lateral incisions and the medial malleolus was was dissected free and excised medially and then again used for local bone graft. This created nice parallel bleeding cancellous surfaces and the subtalar joint was prepared with a bleeding cancellous surfaces. Next the guidewires were used to pin the subtalar joint and ankle joint in place these were wires directed laterally from the heel into the subtalar joint and from the heel across into the ankle joint. The reduction was checked on AP lateral planes then the center of the heel was marked out and the guidewire for the hindfoot jazmine was centered in the calcaneus in line with the lateral talar process and advanced through the calcaneus talus and into the tibia as centrally. Once I was happy with this on x-ray an incision was made on the plantar foot around the K-wire with blunt dissection down to the calcaneus. The opening drill was then completed followed by the step drill. The wire was then exchanged for the ball-tipped guidewire which was advanced into the tibia. Next the flexible reamers were used up to fatimah chatmatt at 11.5 for a 10 nail. A 10 x 200 mm nail was selected. The guidewire was removed and the nail was advanced. Under fluoroscopic guidance the correct depth was selected just to have the fluoro guides for the nail recess at the calcaneus. Then the guides were used to center the calcaneal screws and determine the trajectory for the calcaneal screws. Incision was then made on the heel and the calcaneal screws advanced. First calcaneal screw was noted to be slightly long to the calcaneocuboid joint so was exchanged for a 60 mm screw. The more superior screw was 55 mm screw just to the entering the nail and was visualized cleared of the subtalar joint. Both of the screws were noted to be countersunk appropriately in the heel. Initial compression was obtained manually. Then attention was turned to the tibial screws through the guide medial to lateral 2 of the 28 mm pegs were used in the right and in the dynamic slot. At this time the remainder of the wires were removed from the provisional reduction and the tension the screw was released and removed from the field. Then the jig was removed. And final x-rays were taken in AP mortise lateral and axial planes confirming appropriate alignment of the hardware and compression. The autograft bone from the medial malleolus and distal fibula was packed in around the joint the wound was then irrigated and closed in a layered fashion with 2-0 Vicryl 4-0 Monocryl and 3-0 nylon suture. Patient was placed in a sterile dressing with Xeroform gauze Webril ABD pads Leone cotton and a stirrup and posterior splint. All counts were correct. There no immediate complications from this procedure. The patient was woken from anesthesia and taken to the PACU in good condition. Complications: none Post-operative Condition: stable Disposition: PACU Plan for aftercare: Nonweightbearing minimum 6 weeks. Elevate above the heart level as much as possible. May touch the foot down for balance otherwise nonweightbearing. Aspirin for DVT prophylaxis. Postop day 1. Follow up in 2-3 weeks in [facility] for wound check.
[2023-07-17] MEDS: ONDANSETRON 4 MG/2 ML INJ IV (18:59)
[2023-07-17] MEDS: OXYCODONE IR 5 MG TABLET PO ×2 (19:00→19:30)
[2023-07-17] MEDS: HYDROMORPHONE 1 MG INJ IV ×2 (19:16→19:22)
[2023-07-17] MEDS: KETOROLAC 30 MG/ML VIAL IV (19:25)
== END 2023-07-17 20:00 | disposition home or self-care (01) ==
LOC: OR 13:53 → AC 15:02
PROVIDERS: Family Provider Family Medicine; PCP Family Medicine; Referring Provider Orthopaedic Surgery Foot and Ankle Surgery; Visit Provider Orthopaedic Surgery Foot and Ankle Surgery
PROC: (CPT 27870; principal; 2023-07-17 12:45)
DX: M19.171 Post-traumatic osteoarthritis, right ankle and foot (principal); M20.21 Hallux rigidus, right foot; S82.891P Other fracture of right lower leg, subsequent encounter for closed fracture with malunion; M81.0 Age-related osteoporosis without current pathological fracture; Z98.890 Other specified postprocedural states; G89.18 Other acute postprocedural pain; M25.774 Osteophyte, right foot
CPT/HCPCS: 27870; 28725; 28289; 27641; 20680; 64450; 73600; 76000; J0330; J0690; J1100; J1170; J1885; J2250; J2405; J2704; J3010

== ENCOUNTER 2024-05-26 10:11 | Emergency (ER) | payer OTHER, SELFPAY ==
[2024-05-26 10:28] VITALS: BP 135/63; PULSE 98; RESP 15; TEMP 36.3; O2SAT 95; BMI 40.8
--- NOTE | 2024-05-26 10:31 | DI.RAD.S_ITS ---
PROCEDURE: XR FOOT LT MIN 3V INDICATIONS: foot injury TECHNIQUE: 3 views of the foot were acquired. COMPARISON: [facility], , XR FOOT LT MIN 3V, 05/26/2022, 12:38. FINDINGS: Bones: Stable lateral malleolus and calcaneal fixation hardware. Stable naviculocuneiform arthrodesis hardware. No acute fracture. Chronic 1st proximal phalange and 3rd through 5th metatarsal neck fractures. Soft tissues: No tibiotalar joint effusion. Achilles tendon appears normal. IMPRESSION: No acute bony abnormality. Dictated by: Nereida Brambila MD, PhD on 05/26/2024 at 11:15 Approved by: Nereida Brambila MD, PhD on 05/26/2024 at 11:16
--- NOTE | 2024-05-26 11:19 | PC.NURSE ---
Pt states 2 weeks ago she stood on her foot and messed up her foot. Diff bearing weight on left foot
--- NOTE | 2024-05-26 11:21 | ED_ITS ---
HPI - Extremity Injury (Lower) <JACQUELINE Lacy - Last Filed: 05/26/24 11:33> General Chief Complaint: Extremity Injury, Lower Stated Complaint: L foot injury Time Seen by Provider: 05/26/24 11:09 Source: patient Mode of arrival: Ambulatory History of Present Illness HPI Narrative: 74-year-old female, former smoker, presents to the emergency department with left foot pain x2 weeks. Patient states that she fell out of bed, and when her was helping her up, she rolled her left ankle and now has left great toe pain. History of ankle fractures with hardware still in place. Home treatment has included ice and elevation. Patient is concerned because it is still sore. Related Data Home Medications Medication Instructions Recorded Confirmed gabapentin 300 mg capsule 300 mg PO SEEINSTR 06/03/18 07/17/23 paroxetine HCl 20 mg tablet 20 mg PO DAILY 06/03/18 07/17/23 trazodone 50 mg tablet 25 mg PO BEDTIME 06/03/18 07/17/23 omeprazole 20 mg tablet,delayed 20 mg PO DAILY 11/28/20 07/17/23 release Benadryl 25 mg PO PRN PRN Itching 08/05/22 07/17/23 Allergies Allergy/AdvReac Type Severity Reaction Status Date / Time Sulfa (Sulfonamide Allergy Severe CHILDHOOD Verified 05/26/24 10:28 Antibiotics) RX- [SULFA (SULFONAMIDE swelling, ANTIBIOTICS)] comatose Review of Systems <JACQUELINE Lacy - Last Filed: 05/26/24 11:33> Review of Systems Narrative: Narrative: See HPI. GENERAL: Denies chills, fatigue, fever, sweats. HEENT: Denies sinus pain, ear pain, sore throat, difficulty swallowing, dizziness. RESPIRATORY: Denies dyspnea, cough, wheezing, sputum. CARDIOVASCULAR: Denies chest pain, palpitations, edema. GASTROINTESTINAL: Denies nausea, vomiting, abdominal pain, diarrhea, constipation. : Denies dysuria, frequency, incontinence, hematuria, urinary retention, flank pain. MSK: Denies weakness. Endorses left foot pain. SKIN: Denies rash, skin lesions, or pruritis. NEUROLOGIC: Denies weakness, dizziness, headache, numbness, confusion. PSYCHIATRIC: No concerning psychosocial issues. 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 Normocephalic. RESPIRATORY: Respiratory rate and effort are normal. MSK: Moves all extremities. Normal range of motion, no clubbing or edema. Neurovascularly intact. NEURO: A&O x 3. SKIN: Warm, dry, no rashes or lesions noted. FOOT: There is mild swelling, bruising, but no asymmetry. There is no tenderness to general palpation. Sensation grossly intact. There is tenderness over left great toe MTP but no tenderness over the mid-foot, other metatarsals or arch. The ankle flexion and extension is intact. Toes range of motion intact. The contralateral foot exam is unremarkable. Initial Vital Signs Initial Vital Signs: Vital Signs Temperature 97.3 F L 05/26/24 10:28 Pulse Rate 98 H 05/26/24 10:28 Respiratory Rate 15 05/26/24 10:28 Blood Pressure 135/63 05/26/24 10:28 Pulse Oximetry 95 05/26/24 10:28 Oxygen Delivery Method Room Air 05/26/24 10:28 Reviewed <Vel Rahman DO - Last Filed: 05/26/24 12:00> Initial Vital Signs Initial Vital Signs: Vital Signs Temperature 97.3 F L 05/26/24 10:28 Pulse Rate 98 H 05/26/24 10:28 Respiratory Rate 15 05/26/24 10:28 Blood Pressure 135/63 05/26/24 10:28 Pulse Oximetry 95 05/26/24 10:28 Oxygen Delivery Method Room Air 05/26/24 10:28 Course <JACQUELINE Lacy - Last Filed: 05/26/24 11:33> Orders Ordered: ED Orders 05/26/24 10:31 XR foot LT min 3V Stat Vital Signs Vital signs: Vital Signs - 8 hr 05/26/24 10:28 Temperature 97.3 F L Pulse Rate 98 H Respiratory Rate 15 Blood Pressure 135/63 Pulse Oximetry 95 Oxygen Delivery Method Room Air <Vel Rahman DO - Last Filed: 05/26/24 12:00> Orders Ordered: ED Orders 05/26/24 10:31 XR foot LT min 3V Stat Vital Signs Vital signs: Vital Signs - 8 hr 05/26/24 10:28 Temperature 97.3 F L Pulse Rate 98 H Respiratory Rate 15 Blood Pressure 135/63 Pulse Oximetry 95 Oxygen Delivery Method Room Air MDM - Extremity Injury (Lower) <JACQUELINE Lacy Last Filed: 05/26/24 11:33> Differential Diagnosis Differential diagnosis: Likely other (Left foot pain, foot fracture, surgical hardware displacement) Imaging Data Extremity x-ray #1: Radiologist's Impression: [address] [address] XRay Report Signed Patient: Nikolas Castillo MR#: [id number] : 1950 Acct:[id number] Age/Sex: 74 / F Date of Service: 05/26/24 Loc: ED Accession Number: [id number] Procedure: XR foot LT min 3V Ordering Provider: Vel Rahman D.O. PROCEDURE: XR FOOT LT MIN 3V INDICATIONS: foot injury TECHNIQUE: 3 views of the foot were acquired. COMPARISON: [facility], , XR FOOT LT MIN 3V, 05/26/2022, 12:38. FINDINGS: Bones: Stable lateral malleolus and calcaneal fixation hardware. Stable naviculocuneiform arthrodesis hardware. No acute fracture. Chronic 1st proximal phalange and 3rd through 5th metatarsal neck fractures. Soft tissues: No tibiotalar joint effusion. Achilles tendon appears normal. IMPRESSION: No acute bony abnormality. Dictated by: Nereida Brambila MD, PhD on 05/26/2024 at 11:15 Approved by: Nereida Brambila MD, PhD on 05/26/2024 at 11:16 [facility] Narrative Medical decision making narrative: 74-year-old female with left foot pain. Assessment and HPI indicated the need for a x-ray. Assessment was encouraging and x-ray was negative for acute fracture. Discussed supportive care measures such as Rest (modified activity), along with ice, compression wrap/splint-immobilize as directed and elevation above heart. Tylenol or Ibuprofen for discomfort. Discussed plan of care and return precautions with patient and , who verbalized understanding and was agreeable with course of action. Discharge Plan Departure Patient Disposition: Home Clinical Impression: Acute pain of left foot Instructions: DI for Foot Pain Activity Restrictions/Additional Instructions: *You have been diagnosed with left foot. My assessment was encouraging x-ray revealed acute fractures. As we discussed, good supportive care includes Rest (modified activity), along with ice, compression wrap/splint-immobilize as directed and elevation above heart. Tylenol or Ibuprofen for discomfort. As I suggested, possibly rolling the bottom of your foot along a frozen water bottle may provide mild massage with a cooling affect. For any worsening symptoms, please feel free to return to emergency department. Otherwise follow-up with your family doctor as needed. *What to do: *Please continue to take your regular medications as directed. [ ] New medication prescriptions sent to your pharmacy: [ ] [ ] New medication written as a paper prescription [ x] No new medications given *Please follow up with your primary care provider in 2-3 days, call for an appointment. Let them know you were seen in the Emergency Department and that we ask that you be seen in follow up. We will electronically transmit a record of today's note if your PCP is in our system *If you do not have a primary care provider please contact the [facility] Resource line at [phone]. They will ask some questions about your medical history and help get you set up with a doctor in the community. ? Return to ER if you should have any new, worsening or concerning symptoms, such as worsening pain, severe headache, confusion, chest pain, difficulty breathing, fever greater than 101 F, shaking chills, persistent vomiting to the point that you cannot drink fluids, or other new or worsening symptoms. Prescriptions: No Action trazodone 50 mg tablet 25 mg PO BEDTIME Patient Comments: patient states unable to take meds today or yesterday paroxetine HCl 20 mg tablet 20 mg PO DAILY Patient Comments: take 1 tablet by mouth daily for depression patient states unable to take meds today or yesterday gabapentin 300 mg capsule 300 mg PO SEEINSTR Patient Comments: patient states unable to take meds today or yesterday Rx Instructions: 300mg bid, 900mg bedtime omeprazole 20 mg Tablet,Delayed Release (Dr/Ec) 20 mg PO DAILY Benadryl capsule 25 mg PO PRN PRN (Reason: Itching) Rx Instructions: itching Referrals: Julianna Ponce MD [Primary Care Provider] - Stand Alone Forms: Patient Portal/API ED Sign-out <Vel Rahman, - Last Filed: 05/26/24 12:00> Cosign ED Attending Cosignature Attestation: Dr Rahman Co-Sign Statement: I was available for consultation during this patient's emergency department visit. This chart is signed by myself for administrative purposes only. I did not have direct contact with this patient during this visit. They were seen independently by the APC.
== END 2024-05-26 11:38 | disposition home or self-care (01) ==
PROVIDERS: Emergency Provider Registered Nurse; Family Provider Family Medicine; PCP Family Medicine
DX: M79.672 Pain in left foot (principal); W06.XXXA Fall from bed, initial encounter
CPT/HCPCS: 73630; 99281; 99283

== ENCOUNTER 2025-01-05 12:03 | Emergency (ER) | payer MEDICARE, SELFPAY ==
[2025-01-05] VITALS (15 sets, daily range): BP systolic 148–186; BP diastolic 77–102; PULSE 79–90; RESP 22; TEMP 36.2; O2SAT 94–98; BMI 40.2
[2025-01-05 12:56] LABS: Add Manual Diff / Slide Review NO; Basophils Absolute Auto 0 /uL (0-100); Basophils Percent Auto 0.4 % (0-2); Eosinophils Absolute Auto 200 /uL (0-450); Eosinophils Percent Auto 2.1 % (2-4); Hematocrit 43.6 % (36-46); Hemoglobin 14.6 g/dL (12.0-16.0); Lymphocytes Absolute Auto 700 /uL (1100-4500); Mean Corpuscular HGB Conc 33.5 % (30-36); Mean Corpuscular Hemoglobin 31.3 PG (26-34); Mean Corpuscular Volume 93.4 fL (80-100); Monocytes Absolute Auto 500 /uL (0-900); Monocytes Percent Auto 6.2 % (3-14); Neutrophils Absolute Auto 6500 /uL (1500-7000); Neutrophils Percent Auto 82.3 % (50-75); Platelet Count 300 X10^3/uL (150-400); Red Blood Cell Count 4.67 X10^6/uL (4.0-5.2); Red Cell Distribution Width 14.9 % (11.6-14.8); White Blood Cell Count 7.9 X10^3/uL (4.5-11.0)
[2025-01-05 12:59] LABS: Alanine Aminotransferase 16 IU/L (<35); Albumin 4.4 g/dL (3.5-5.0); Albumin Globulin Ratio 1.3 (1.0-2.8); Alkaline Phosphatase 92 U/L (38-126); Aspartate Aminotransferase 28 IU/L (14-36); BUN Creatinine Ratio 14.5 (6-22); Bilirubin Total 0.6 mg/dL (0.2-1.3); Blood Urea Nitrogen 12 mg/dL (7-17); Calcium 9.6 mg/dL (8.4-10.2); Carbon Dioxide 25 mmol/L (22-32); Chloride 102 mmol/L (98-107); Estimated Glomerular Filt Rate > 60 mL/min (>60); Globulin 3.4 g/dL (1.7-4.1); Glucose 100 mg/dL (80-110); HEMOLYSIS < 15 (0-50); Lipase 63 U/L (23-300); Sodium 136 mmol/L (137-145); Total Protein 7.8 g/dL (6.3-8.2)
--- NOTE | 2025-01-05 15:33 | PC.NURSE ---
Patient endorsed that they needed to use the restroom, this RN took her by wheelchair and tried to obtain sample. Patient urinated very little and fecal content was mixed within the sample. Tested the stool sample for blood, showed negative result. Patients stools are loose and black, not enough for sample
--- NOTE | 2025-01-05 15:55 | DI.CT.S_ITS ---
PROCEDURE: CT ANGIO ABD/PEL GI BLEED INDICATIONS: Abdominal Pain TECHNIQUE: After the administration of intravenous contrast, 2.5 mm thick sections acquired from the diaphragm to the symphysis. 10 mm maximum-intensity projection (MIP) reformats were then acquired. For radiation dose reduction, the following was used: automated exposure control. COMPARISON: None. FINDINGS: Image quality: Diagnostic Lower chest: Moderate right pleural effusion. Adjacent atelectasis. Liver: Unremarkable Gallbladder and biliary system: Unremarkable, nondilated Pancreas: No ductal dilation Spleen: Nonenlarged Adrenals: No discrete nodules Kidneys: No solid renal mass. No hydronephrosis. Vessels and lymph nodes: The main portal vein is patent. No abdominal aortic aneurysm. No pathologic lymphadenopathy by size criteria The major mesenteric arteries appear patent. The renal arteries appear patent. No high-grade stenosis identified. No SMV thrombus Bowel and peritoneum: There is a large hiatal hernia which contains all of the stomach, which is nondistended. Mild wall thickening is seen at the gastroesophageal junction. The hernia also contains mesenteric fat and transverse colon. No evidence of active arterial extravasation is identified. No small bowel obstruction. There are colonic diverticula. Liquid rectal and distal colonic contents. Mesenteric fat stranding is seen at the neck of the hiatal hernia. No drainable abscess Body wall: Wide neck ventral hernia containing nonobstructed bowel. Pelvis: Bladder is under distended and unremarkable, not well evaluated. No gross abnormality on limited CT evaluation of the reproductive organs Bones: Degenerative osseous changes. Multiple right lower rib fractures partially seen, which may be acute or varying ages. Wedging of T8 and T7, not IMPRESSION: Large hiatal hernia as described above, containing all of the stomach, congested mesentery, and transverse colon. Nonspecific wall thickening at the gastroesophageal junction. No small bowel obstruction. Moderate right pleural effusion. No high-grade stenosis of the mesenteric arteries. Mild atherosclerosis is present. No SMV or portal vein thrombus. Liquid distal rectal and colonic contents, possibly proctocolitis, correlate with symptoms. Multiple right lower rib fractures of varying ages partially seen, at least some may be acute. Other findings above. Dictated by: Kamran Tuttle M.D. on 01/05/2025 at 17:12 Approved by: Kamran Tuttle M.D. on 01/05/2025 at 17:19
--- NOTE | 2025-01-05 15:58 | ED.ABDPAIN ---
HPI - Abdominal Pain General Chief Complaint: Abdominal Pain Stated Complaint: black stools Time Seen by Provider: 01/05/25 14:54 Source: patient Mode of arrival: Ambulatory History of Present Illness HPI narrative: Patient here with for complaints of left lower quadrant pain radiating to left lower back. Has had dark stools for the past 3 days. Denies any hematemesis. Does not take ibuprofen regularly. Is not on any blood thinners. Has been many years since colonoscopy. Never had EGD before. Is not on any iron pills. Has had dizziness off and on this week. Vital signs are reassuring. CBC is reassuring. Denies any shortness of breath denies any chest pain Related Data Home Medications Medication Instructions Recorded Confirmed gabapentin 300 mg capsule 300 mg PO SEEINSTR 06/03/18 07/17/23 paroxetine HCl 20 mg tablet 20 mg PO DAILY 06/03/18 07/17/23 trazodone 50 mg tablet 25 mg PO BEDTIME 06/03/18 07/17/23 omeprazole 20 mg tablet,delayed 20 mg PO DAILY 11/28/20 07/17/23 release Benadryl 25 mg PO PRN PRN Itching 08/05/22 07/17/23 Previous Rx's Medication Instructions Recorded pantoprazole 40 mg tablet,delayed 40 mg PO DAILY #30 tabs 01/05/25 release (Protonix) Allergies Allergy/AdvReac Type Severity Reaction Status Date / Time Sulfa (Sulfonamide Allergy Severe CHILDHOOD Verified 01/05/25 12:24 Antibiotics) RX- [SULFA (SULFONAMIDE swelling, ANTIBIOTICS)] comatose Review of Systems Review of Systems Narrative: GENERAL: Negative chills, fatigue, malaise, fever, sweats. HEENT: Negative sinus pain, ear pain, sore throat RESPIRATORY: Negative dyspnea, cough CARDIOVASCULAR: Negative chest pain, palpitations GASTROINTESTINAL: Negative nausea, vomiting, positive black stool and abdominal pain : Negative dysuria, frequency, hematuria MUSCULOSKELETAL: Negative muscle or bony pain SKIN: Negative rash, skin lesions NEUROLOGIC: Negative weakness, numbness, positive dizzy ROS Unobtainable: All systems reviewed & are unremarkable except as noted in HPI and below Patient History Medical History Closed torus fracture of distal end of right fibula with routine healing Arthritis of foot, left Closed torus fracture of distal end of left fibula Pes planus Former smoker Osteoarthritis Diverticulitis Diverticulosis Ankle fracture (~2016) Tingling Depression Arthritis Surgical History History of bladder surgery History of open reduction and internal fixation (ORIF) procedure (11/30/20) Hx of left knee surgery (09/16/19) 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 EYES: Pupils equal round pink conjunctiva ENT: Mucous membranes moist. NECK: Trachea midline. CARDIOVASCULAR: Regular rate and rhythm RESPIRATORY: Clear to auscultation. Breath sounds equal bilaterally. No wheezes, rales, or rhonchi. GASTROINTESTINAL: Abdomen soft, non-tender, soft, nontender, no peritoneal signs no pain out of portion exam, bowel sounds are present. No guarding no rebound. EXTREMITIES: No gross deformities. BACK: No flank tenderness. NEURO: AOx4. Clear speech SKIN: Warm and dry PSYCH: Not anxious, is cooperative Initial Vital Signs Initial Vital Signs: Vital Signs Temperature 97.1 F L 01/05/25 12:24 Pulse Rate 90 01/05/25 12:24 Respiratory Rate 22 01/05/25 12:24 Blood Pressure 152/93 H 01/05/25 12:24 Pulse Oximetry 95 01/05/25 12:24 Oxygen Delivery Method Room Air 01/05/25 12:24 Course Orders Ordered: Discontinued Medications Sodium Chloride (Normal Saline 0.9%) 1,000 mls @ 1,000 mls/hr IV BOLUS ONE Stop: 01/05/25 16:56 Last Infusion: 01/05/25 17:53 Dose: Infused Documented By: Admin: 01/05/25 16:08 Dose: 1,000 mls/hr Documented By: SHAQ Ondansetron HCl (Ondansetron 4 Mg/2 Ml Inj) 4 mg IV NOW PRN PRN Reason: Nausea And Vomiting Ondansetron HCl (Ondansetron 4 Mg Odt) 4 mg PO NOW PRN PRN Reason: Nausea And Vomiting Pantoprazole Sodium (Pantoprazole 40 Mg Vial) 40 mg IV NOW ONE Stop: 01/05/25 17:33 Last Admin: 01/05/25 18:02 Dose: 40 mg Documented By: SHAQ Vital Signs Vital signs: Vital Signs - 8 hr 01/05/25 12:24 01/05/25 14:49 01/05/25 14:49 Temperature 97.1 F L Pulse Rate 90 90 Respiratory Rate 22 Blood Pressure 152/93 H 174/102 H Pulse Oximetry 95 95 Oxygen Delivery Method Room Air 01/05/25 15:00 01/05/25 15:01 01/05/25 15:01 Temperature Pulse Rate 83 84 Respiratory Rate Blood Pressure 154/84 H Pulse Oximetry 95 95 Oxygen Delivery Method Room Air 01/05/25 15:30 01/05/25 15:30 01/05/25 16:00 Temperature Pulse Rate 79 81 Respiratory Rate Blood Pressure 174/88 H Pulse Oximetry 95 95 Oxygen Delivery Method 01/05/25 16:01 01/05/25 16:01 01/05/25 16:37 Temperature Pulse Rate 83 84 Respiratory Rate Blood Pressure 148/86 H Pulse Oximetry 94 98 Oxygen Delivery Method 01/05/25 17:00 01/05/25 17:01 01/05/25 17:01 Temperature Pulse Rate 84 84 Respiratory Rate Blood Pressure 173/92 H Pulse Oximetry 95 95 Oxygen Delivery Method Room Air MDM - Abdominal Pain Lab Data 01/05/25 12:35 01/05/25 12:35 Labs: Lab Results 01/05/25 01/05/25 Range/Units 12:35 16:53 WBC 7.9 (4.5-11.0) X10^3/uL RBC 4.67 (4.0-5.2) X10^6/uL Hgb 14.6 (12.0-16.0) g/dL Hct 43.6 (36-46) % MCV 93.4 (80-100) fL MCH 31.3 (26-34) PG MCHC 33.5 (30-36) % RDW 14.9 H (11.6-14.8) % Plt Count 300 (150-400) X10^3/uL Neut % (Auto) 82.3 H (50-75) % Lymph % (Auto) 9.0 L (25-40) % [place] % (Auto) 6.2 (3-14) % Eos % (Auto) 2.1 (2-4) % Baso % (Auto) 0.4 (0-2) % Neut # (Auto) 6500 (2557-8195) /uL Lymph # (Auto) 700 L (0697-0086) /uL [place] # (Auto) 500 (0-900) /uL Eos # (Auto) 200 (0-450) /uL Baso # (Auto) 0 (0-100) /uL Sodium 136 L (137-145) mmol/L Potassium 4.0 (3.4-5.1) mmol/L Chloride 102 (98-107) mmol/L Carbon Dioxide 25 (22-32) mmol/L BUN 12 (7-17) mg/dL Creatinine 0.83 (0.52-1.04) mg/dL Estimated GFR > 60 (>60) mL/min BUN/Creatinine Ratio 14.5 (6-22) Glucose 100 (80-110) mg/dL Calcium 9.6 (8.4-10.2) mg/dL Total Bilirubin 0.6 (0.2-1.3) mg/dL AST 28 (14-36) IU/L ALT 16 (<35) IU/L Alkaline Phosphatase 92 (38-126) U/L Total Protein 7.8 (6.3-8.2) g/dL Albumin 4.4 (3.5-5.0) g/dL Globulin 3.4 (1.7-4.1) g/dL Albumin/Globulin Ratio 1.3 (1.0-2.8) Lipase 63 (23-300) U/L Stl C. cayetanensis PCR Not detected (Not Detect) Stool Rotavirus (PCR) Not detected (Not Detect) Stool Adenovirus (PCR) Not detected (Not Detect) Stool Astrovirus (PCR) Not detected (Not Detect) Stool Cryptosporidium PCR Not detected (Not Detect) Stl E.coli Shiga Tox PCR Not detected (Not Detect) St Sh/Enteroin Ecoli PCR Not detected (Not Detect) Stl Enterotoxigenic E PCR Not detected (Not Detect) Stool EPEC (PCR) Detected (Not Detect) Stl E. histolytica PCR Not detected (Not Detect) Stool Giardia Lamblia PCR Not detected (Not Detect) Stool Sapovirus (PCR) Not detected (Not Detect) Stl P. shigelloides PCR Not detected (Not Detect) St Y.enterocolitica PCR Not detected (Not Detect) Stool Vibrio (PCR) Not detected (Not Detect) Stl Vibrio cholerae PCR Not detected (Not Detect) Stl Enteroaggr Ecoli PCR Not detected (Not Detect) Stl Norovirus GI/GII PCR Not detected (Not Detect) Campylobacter (PCR) Not detected (Not Detect) C. difficile Tox (PCR) Not detected (Not Detect) Salmonella (PCR) Not detected (Not Detect) Blood Type A Positive Antibody Screen Negative Point of care testing: Point of Care Testing Stool Occult Blood Negative Urine Dip Bedside Urine Glucose Negative Bedside Urine Bilirubin - Negative Bedside Urine Ketone +/- 5 Urine Specific [place] 1.010 Bedside Urine Occult Blood - Negative Bedside Urine pH 6.5 Bedside Urine Protein - Negative Bedside Urine Urobilinogen - Negative Bedside Urine Nitrite - Negative Bedside Urine Leukocytes - Negative Esterase Imaging Data CT scan - abdomen/pelvis: Radiologist's Impression: [place] [address] CT Scan Report Signed Patient: Nikolas Castillo MR#: [id number] : 1950 Acct:[id number] Age/Sex: 74 / F Date of Service: 01/05/25 Loc: ED Accession Number: [id number] Procedure: CT angio Abd/Pel GI Bleed Ordering Provider: Matthew Green MD PROCEDURE: CT ANGIO ABD/PEL GI BLEED INDICATIONS: Abdominal Pain TECHNIQUE: After the administration of intravenous contrast, 2.5 mm thick sections acquired from the diaphragm to the symphysis. 10 mm maximum-intensity projection (MIP) reformats were then acquired. For radiation dose reduction, the following was used: automated exposure control. COMPARISON: None. FINDINGS: Image quality: Diagnostic Lower chest: Moderate right pleural effusion. Adjacent atelectasis. Liver: Unremarkable Gallbladder and biliary system: Unremarkable, nondilated Pancreas: No ductal dilation Spleen: Nonenlarged Adrenals: No discrete nodules Kidneys: No solid renal mass. No hydronephrosis. Vessels and lymph nodes: The main portal vein is patent. No abdominal aortic aneurysm. No pathologic lymphadenopathy by size criteria The major mesenteric arteries appear patent. The renal arteries appear patent. No high-grade stenosis identified. No SMV thrombus Bowel and peritoneum: There is a large hiatal hernia which contains all of the stomach, which is nondistended. Mild wall thickening is seen at the gastroesophageal junction. The hernia also contains mesenteric fat and transverse colon. No evidence of active arterial extravasation is identified. No small bowel obstruction. There are colonic diverticula. Liquid rectal and distal colonic contents. Mesenteric fat stranding is seen at the neck of the hiatal hernia. No drainable abscess Body wall: Wide neck ventral hernia containing nonobstructed bowel. Pelvis: Bladder is under distended and unremarkable, not well evaluated. No gross abnormality on limited CT evaluation of the reproductive organs Bones: Degenerative osseous changes. Multiple right lower rib fractures partially seen, which may be acute or varying ages. Wedging of T8 and T7, not IMPRESSION: Large hiatal hernia as described above, containing all of the stomach, congested mesentery, and transverse colon. Nonspecific wall thickening at the gastroesophageal junction. No small bowel obstruction. Moderate right pleural effusion. No high-grade stenosis of the mesenteric arteries. Mild atherosclerosis is present. No SMV or portal vein thrombus. Liquid distal rectal and colonic contents, possibly proctocolitis, correlate with symptoms. Multiple right lower rib fractures of varying ages partially seen, at least some may be acute. Other findings above. Dictated by: Kamran Tuttle M.D. on 01/05/2025 at 17:12 Approved by: Kamran Tuttle M.D. on 01/05/2025 at 17:19 [facility] Narrative Medical decision making narrative: Patient here with for complaints of left lower quadrant pain radiating to left lower back. Has had dark stools for the past 3 days. Denies any hematemesis. Does not take ibuprofen regularly. Is not on any blood thinners. Has been many years since colonoscopy. Never had EGD before. Is not on any iron pills. Has had dizziness off and on this week. Vital signs are reassuring. CBC is reassuring. Denies any shortness of breath denies any chest pain After history and exam, CBC CMP type and screen CT abdomen pelvis normal saline [facility] Medical records reviewed: No recent visit for this complaint Differential considered: Includes but not limited to upper GI bleed gastritis gastric ulcer diverticulosis diverticulitis Lab Test results independently reviewed as above. Pertinent findings: WBC 7.9 hemoglobin 14.6 hematocrit 43.6 platelets 300 sodium 136 potassium 4.0 BUN 12 creatinine 0.83 GFR greater than 60. Hemoccult negative Imaging studies independently reviewed: CT abdomen pelvis GI bleed protocol no acute findings Consultations: 5:45 p.m.. Spoke with General surgery, dr zarate, we have reviewed results imaging laboratory studies and vital signs. Appropriate for discharge home on Protonix and follow up in office for EGD and colonoscopy. She will take down patient's information for follow up. Treatments: normal saline Protonix Re-evaluations: 5:32 p.m.. Updated patient and results. They are reassuring at this time. Awaiting callback from general surgery for disposition plan. Protonix has been ordered. 6:00 p.m.. Updated patient and my discussion with General surgery. They agree with treatment plan. She is motivated and desires discharge home. Return precautions reviewed. She desires discharge home. Discussion: Appropriate for discharge home exam is reassuring. General surgery was contacted. Blood pressure has been slightly elevated, patient states she is anxious. Return precautions reviewed with patient. She desires discharge home. Diagnosis: GI bleed Discharge Plan Departure Patient Disposition: Home Clinical Impression: Acute GI bleeding Instructions: Gastrointestinal Bleeding Activity Restrictions/Additional Instructions: Your exam and laboratory studies are reassuring. Return immediately if any further black stools or dizziness or shortness of breath or syncope/fainting. Please call provided general surgery office tomorrow for follow up for outpatient endoscopy your stomach and colonoscopy. No fried fatty greasy foods or spicy foods. Prescription medication for your stomach has been sent to your pharmacy to continue tomorrow. Prescriptions: New pantoprazole [Protonix] 40 mg tablet,delayed release (DR/EC) 40 mg PO DAILY Qty: 30 0RF No Action trazodone 50 mg tablet 25 mg PO BEDTIME Patient Comments: patient states unable to take meds today or yesterday paroxetine HCl 20 mg tablet 20 mg PO DAILY Patient Comments: take 1 tablet by mouth daily for depression patient states unable to take meds today or yesterday gabapentin 300 mg capsule 300 mg PO SEEINSTR Patient Comments: patient states unable to take meds today or yesterday Rx Instructions: 300mg bid, 900mg bedtime omeprazole 20 mg Tablet,Delayed Release (Dr/Ec) 20 mg PO DAILY Benadryl capsule 25 mg PO PRN PRN (Reason: Itching) Rx Instructions: itching Referrals: Julianna Ponce MD [Primary Care Provider] - Georgie Zarate MD [Physician] - Stand Alone Forms: Patient Portal/API/Survey
[2025-01-05] MEDS: SODIUM CHLORIDE 0.9% 1,000 ML 1000 ML IV (16:08)
[2025-01-05] MEDS: PANTOPRAZOLE 40 MG VIAL IV (18:02)
[2025-01-05 18:31] LABS: Adenovirus F 40/41 Not Detected (Not Detect); Astrovirus Not Detected (Not Detect); Campylobacter Not Detected (Not Detect); Clostridium difficile toxin AB Not Detected (Not Detect); Cryptosporidium Not Detected (Not Detect); Cyclospora cayetanensis Not Detected (Not Detect); Entamoeba histolytica Not Detected (Not Detect); Enteroaggregative E.coli Not Detected (Not Detect); Enteropathogenic E.coli Detected (Not Detect); Enterotoxigenic E.coli It/st Not Detected (Not Detect); Giardia lamblia Not Detected (Not Detect); Norovirus GI/GII Not Detected (Not Detect); Plesiomonsa shigelloides Not Detected (Not Detect); Rotavirus A Not Detected (Not Detect); Salmonella Not Detected (Not Detect); Sapovirus Not Detected (Not Detect); Shiga-like toxin-prod E.coli Not Detected (Not Detect); Shigella/Enteroinvasive E.coli Not Detected (Not Detect); Vibrio Not Detected (Not Detect); Vibrio cholerae Not Detected (Not Detect); Yersinia enterocolitica Not Detected (Not Detect)
== END 2025-01-05 18:16 | disposition home or self-care (01) ==
PROVIDERS: Emergency Provider Emergency Medicine; Family Provider Family Medicine; PCP Family Medicine
DX: K92.2 Gastrointestinal hemorrhage, unspecified (principal)
CPT/HCPCS: 36415; 74174; 80053; 81003; 82272; 83690; 85025; 86850; 86900; 86901; 87507; 96361; 96374; 99284; J2470; Q9967